=== PATIENT | female | born 1975 | race Hispanic/Latino ===

== ENCOUNTER 2018-04-06 17:59 | Emergency (ER) | payer BC ==
[2018-04-06 19:03] LABS: Absolute Lymphocytes (CBC) 3.3 K/uL (0.7-4.9); Absolute Monocytes 0.5 K/uL (0.1-1.3); Absolute Neutrophil 3.5 K/uL (1.8-8.0); Basophils % 1.2 % (0-1.3); Eosinophils % 1.6 % (0-4.4); Hematocrit 44.8 % (36.0-45.0); Lymphocytes % 44.3 % (15.3-44.8); MCH 29.9 pg (27.0-35.0); MCV 87.2 fL (80-100); MPV 9.5 fL (7.6-11.3); Monocytes % 6.7 % (3.3-12.3); RBC Red Blood Cell Count 5.14 M/uL (3.86-4.86)
[2018-04-06 19:12] LABS: Protime INR 1.07
[2018-04-06 19:23] LABS: Barbiturates NEGATIVE (NEGATIVE); Benzodiazepines POSITIVE (NEGATIVE); Cocaine NEGATIVE (NEGATIVE); METHAMPHETAM NEGATIVE (NEGATIVE); Methadone NEGATIVE (NEGATIVE); Opiates POSITIVE (NEGATIVE); Phencyclidine NEGATIVE (NEGATIVE); THC Cannibis NEGATIVE (NEGATIVE)
[2018-04-06 19:50] LABS: ALT/SGPT 19 U/L (12-78); AST/SGOT 15 U/L (15-37); Albumin 4.1 g/dL (3.4-5.0); Alkaline Phosphatase 82 U/L (45-117); BUN Blood Urea Nitrogen 8 mg/dL (7-18); Bicarbonate 27 mmol/L (21-32); Bilirubin Direct 0.1 mg/dL (0-0.2); Bilirubin Total 0.5 mg/dL (0.2-1.0); Glucose Level 97 mg/dL (74-106); Potassium 3.5 mmol/L (3.5-5.1); Protein, Total 7.9 g/dL (6.4-8.2); Sodium Level 139 mmol/L (136-145)
[2018-04-06 19:53] LABS: Urine Blood NEGATIVE (NEG); Urine Glucose NEGATIVE (NEG); Urine Protein NEGATIVE (NEG); Urine Specific Gravity 1.015 (1.005-1.030)
--- NOTE | 2018-04-06 21:32 | EDPHYS ---
Physician Documentation [facility] Name: Shira Goldsmith Age: 42 yrs Sex: Female : 1975 Arrival Date: 04/06/2018 Time: 18:04 Bed 15 Private MD: Michael Amaral T ED Physician Carlos Boland HPI: 04/06 18:45 This 42 yrs old Female presents to ER via Ambulatory with complaints of cp Suicidal Ideation. 18:45 The patient presents to the emergency department with depression, over a , the cp patient's child, suicide ideation, and the patient has a plan, to cut oneself and bleed, to overdose with medications. Onset: The symptoms/episode began/occurred gradually. Past psychiatric history: Prior diagnosis: no previous psychiatric diagnosis known, Psychiatric medications include: none. Associated signs and symptoms: Pertinent negatives: abdominal pain, chest pain, delusions, hallucinations, homicidal ideation, substance abuse. 18:45 Patient reports worsening depression and increasing thoughts of suicide since cp unexpected of daughter this past January. 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 - Social history:: Smoking status: Patient/guardian denies using tobacco, Patient/guardian denies using alcohol, street drugs. - Ebola Screening: : Patient denies travel to an Ebola-affected area in the 21 days before illness onset. ROS: 18:50 Constitutional: Negative for body aches, chills, fever, poor PO intake. cp 18:50 Eyes: Negative for injury, pain, redness, and discharge. cp 18:50 ENT: Negative for drainage from ear(s), ear pain, sore throat, difficulty swallowing, difficulty handling secretions. 18:50 Cardiovascular: Negative for chest pain, edema, palpitations. 18:50 Respiratory: Negative for cough, shortness of breath, wheezing. 18:50 Abdomen/GI: Negative for abdominal pain, nausea, vomiting, and diarrhea. 18:50 Neuro: Negative for altered mental status, headache, weakness. 18:50 Psych: Positive for depression, suicidal ideation, Negative for auditory hallucinations, visual hallucinations, homicidal ideation, suicide gesture. 18:50 All other systems are negative. Exam: 18:50 Constitutional: The patient appears in no acute distress, alert, awake, non-toxic, well cp developed, well nourished, tearful 18:50 Head/Face: Normocephalic, atraumatic. cp 18:50 Eyes: Periorbital structures: appear normal, Pupils: equal, round, and reactive to light and accomodation, Extraocular movements: intact throughout, Conjunctiva: normal, no exudate, no injection, Lids and lashes: appear normal, bilaterally. 18:50 ENT: External ear(s): are unremarkable, Ear canal(s): are normal, clear, TM's: are normal, no evidence of bulging, no erythema, Nose: is normal, Mouth: is normal, Posterior pharynx: is normal, airway is patent, no erythema, no exudate. 18:50 Neck: ROM/movement: is normal, is supple, without pain, no range of motions limitations, no nuchal rigidity. 18:50 Chest/axilla: Inspection: normal, Palpation: is normal, no crepitus, no tenderness. 18:50 Cardiovascular: Rate: normal, Rhythm: regular. 18:50 Respiratory: the patient does not display signs of respiratory distress, Respirations: normal, no use of accessory muscles, no retractions, no splinting, no tachypnea, labored breathing, is not present, Breath sounds: are clear throughout, no decreased breath sounds, no stridor, no wheezing. 18:50 Abdomen/GI: Exam negative for discomfort, distension, guarding, Inspection: abdomen appears normal. 18:50 Back: pain, is absent, ROM is normal. 18:50 Skin: cellulitis, is not appreciated, no rash present. 18:50 Neuro: Orientation: to person, place \\T\\ time. Mentation: is normal, Cerebellar function: is grossly normal, Motor: moves all fours, strength is normal, Sensation: is normal. 18:50 Psych: Behavior/mood is depressed, Affect is flat, Patient having thoughts of suicide. Plan for suicide is cut self with knife or overdose on pills Delusions/hallucinations are not present. 18:52 ECG was reviewed by the Attending Physician. cp Vital Signs: 18:13 BP 150 / 107; Pulse 89; Resp 18; Temp 98.0; Pulse Ox 97% on R/A; Pain 0/10; aj1 19:11 BP 158 / 109; Pulse 85; Resp 20; Temp 98.3(TE); Pulse Ox 97% on R/A; 1 19:25 Weight 79.47 kg; Height 4 ft. 11 in. (149.86 cm); 1 21:02 BP 117 / 74 LA Sitting; 1 22:03 BP 123 / 75; Pulse 80; Resp 20; Temp 97.8(TE); Pulse Ox 96% on R/A; 1 23:00 BP 124 / 80; Pulse 64; Resp 20; Pulse Ox 97% on R/A; 1 19:25 Body Mass Index 35.39 (79.47 kg, 149.86 cm) [facility] MDM: 18:23 Patient medically screened. 20:23 Data reviewed: vital signs, nurses notes, lab test result(s), EKG. Test interpretation: cp by ED physician or midlevel provider: ECG. 04/06 18:40 Order name: Acetaminophen; Complete Time: 20:19 04/06 18:40 Order name: Basic Metabolic Panel; Complete Time: 20:19 04/06 18:40 Order name: CBC with Diff; Complete Time: 20:19 04/06 20:19 Interpretation: Normal except: RBC 5.14; HGB 15.3. 04/06 18:40 Order name: ETOH Level; Complete Time: 20:19 04/06 18:40 Order name: Hepatic Function; Complete Time: 20:19 04/06 20:19 Interpretation: GLOB 3.8. 04/06 18:40 Order name: PT-INR; Complete Time: 20:19 04/06 18:40 Order name: Ptt, Activated; Complete Time: 20:19 04/06 18:40 Order name: Salicylate; Complete Time: 20:19 04/06 18:40 Order name: Urine Drug Screen; Complete Time: 20:19 04/06 20:20 Interpretation: Normal except: BZO POSITIVE; OPI POSITIVE. 04/06 18:40 Order name: EKG; Complete Time: 18:41 04/06 18:40 Order name: EKG - Nurse/Tech; Complete Time: 18:47 cp 04/06 19:32 Order name: Urine Dipstick--Ancillary (enter results); Complete Time: 20:19 ms 04/06 18:40 Order name: Labs collected and sent; Complete Time: 18:47 cp EC:52 Rate is 69 beats/min. Rhythm is regular. [place] interval is normal. QRS interval is normal. cp QT interval is normal. Interpreted by me. Reviewed by me. Administered Medications: No medications were administered Disposition: 04/07 08:27 Co-signature as Attending Physician, Carlos Boland MD I agree with the assessment and [facility] plan of care. Disposition: 04/06/18 21:32 Transfer ordered to [facility]. Diagnosis is Suicidal ideations. - Reason for transfer: Higher level of care. - Accepting physician is DR Evelin Noland. - Condition is Stable. - Problem is new. - Symptoms have improved. Signatures: Dispatcher [employer] EDGabriella Austin RN RN aj1 Carlos Boland MD MD cha Calhoun, Lisa lc1 Carlos Garcia, FARSHAD PA cp Corrections: (The following items were deleted from the chart) 04/06 18:15 18:13 Home Meds: "something for my stomach issues"; aj1 aj1 04/07 00:06 04/06 21:32 04/06/2018 21:32 Transfer ordered to [facility]. lc1 Diagnosis is Suicidal ideations. Reason for transfer: Higher level of care. Accepting physician is DR Evelin Noland. Condition is Stable. Problem is new. Symptoms have improved. cp
--- NOTE | 2018-04-06 21:32 | ER ---
Nurse's Notes [facility] Name: Shira Goldsmith Age: 42 yrs Sex: Female : 1975 Arrival Date: 04/06/2018 Time: 18:04 Bed 15 Private MD: Michael Amaral T Diagnosis: Suicidal ideations Presentation: 04/06 18:06 Presenting complaint: Patient states: "I've been having thoughts of killing myself. My aj1 daughter February 06 and my emotions have been getting worse and I want to take a knife and cut myself or take a lot of pill and just be with her" Patient states that her plan was to cut her wrists. Patient's sister states that her daughter accidentally shot herself in the head, she's been taking Valium and see a therapist, but things are just getting worse. Transition of care: patient was not received from another setting of care. Onset of symptoms was February 06, 2018. Risk Assessment: Do you want to hurt yourself or someone else? Patient reports desire/thoughts of hurting themselves or someone else. Provider notified. Initial Sepsis Screen: Does the patient meet any 2 criteria? No. Patient's initial sepsis screen is negative. Does the patient have a suspected source of infection? No. Patient's initial sepsis screen is negative. Care prior to arrival: None. 18:06 Method Of Arrival: Ambulatory aj 18:06 Acuity: IMELDA 2 aj1 Triage Assessment: 18:13 General: Appears uncomfortable, Behavior is anxious, crying. Pain: Denies pain. Neuro: aj1 Level of Consciousness is awake, alert, obeys commands. Cardiovascular: Patient's skin is warm and dry. Respiratory: Airway is patent Respiratory effort is even, unlabored, Respiratory pattern is regular, symmetrical. 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 - Social history:: Smoking status: Patient/guardian denies using tobacco, Patient/guardian denies using alcohol, street drugs. - Ebola Screening: : Patient denies travel to an Ebola-affected area in the 21 days before illness onset. Screenin:11 Abuse screen: Denies threats or abuse. Nutritional screening: No deficits noted. lc1 Tuberculosis screening: No symptoms or risk factors identified. Fall Risk None identified. Assessment: 19:13 General: Appears distressed, Behavior is anxious, crying. Pain: Denies pain. Neuro: No lc1 deficits noted. Neuro: No deficits noted. Reports. Cardiovascular: No deficits noted. Respiratory: No deficits noted. GI: No deficits noted. : No deficits noted. EENT: No deficits noted. Derm: No deficits noted. No signs and/or symptoms reported regarding the dermatologic system. Musculoskeletal: No deficits noted. No signs and/or symptoms reported regarding the musculoskeletal system. 19:26 Neuro: Reports she has been thinking of killing herself and has a plan, she states she lc1 has put knives around the house and even has pills that she can take. patient stated "I just want to go to sleep and be with my baby" She reports she had one of the knives in her hand today. her sister called to check on her and started asking questions and realized that she needed help. sister reports patient has been going to counseling and was taking valium but was weaning off of it and just stopped taking it. she took 1/2 a valium today. patient is tearful, crying. reports she has no appetite. states she was about 198 lbs so she has lost 23 lbs over the last 2 months. will continue to monitor. 21:51 Reassessment: No changes from previously documented assessment. Patient and/or family lc1 updated on plan of care and expected duration. Pain level reassessed. Patient states symptoms have not improved. 23:19 Reassessment: No changes from previously documented assessment. Patient and/or family lc1 updated on plan of care and expected duration. Pain level reassessed. Patient states symptoms have not improved. Psych: 20:00 Subjective: Patient's mood is sad, hopeless, Delusions are denied, Hallucinations are lc1 denied Having thoughts of suicide. Plan for suicide is patient has knives around house with plan to cut herself, she also stated that she has pills that she thought of taking. Objective: Patient is Speech is normal, Affect is appropriate. Interventions: Removed personal items and placed in bag. Patient placed in hospital gown. Searched person for dangerous items. Suicide Risk Assessment: Sad Person Scale: Sex of patient: Female: Score 0 points. Age of patient: Score 0 point if patient falls outside of specified age parameters. Depression: Score 1 point if signs of depression are present. Previous Attempt: Score 0 point if patient has not previously attempted suicide. Substance Abuse: Score 0 point if patient does not abuse alcohol or drugs. Rational Thinking: Score 0 point if patient has rational thinking. Social Support: Score 0 if social support is present/available. Organized Plan: Score 1 point if patient had a plan in place. Relationship: Score 0 point if patient has a spouse or domestic partner. Chronic Sickness: Score 0 point if patient does not have a chronic illness, debilitating, or severe disorder. TOTAL POINTS: If total points are 0-2, proposed clinical action is to send home with follow-up. Safety Checks: Personal items have been removed. Door is open. Visitors are present. Pt denies substance abuse. Commitment: Patient will be a voluntary commitment. Vital Signs: 18:13 BP 150 / 107; Pulse 89; Resp 18; Temp 98.0; Pulse Ox 97% on R/A; Pain 0/10; aj1 19:11 BP 158 / 109; Pulse 85; Resp 20; Temp 98.3(TE); Pulse Ox 97% on R/A; lc1 19:25 Weight 79.47 kg; Height 4 ft. 11 in. (149.86 cm); 1 21:02 BP 117 / 74 LA Sitting; lc1 22:03 BP 123 / 75; Pulse 80; Resp 20; Temp 97.8(TE); Pulse Ox 96% on R/A; lc1 23:00 BP 124 / 80; Pulse 64; Resp 20; Pulse Ox 97% on R/A; lc1 19:25 Body Mass Index 35.39 (79.47 kg, 149.86 cm) [facility] ED Course: 18:04 Patient arrived in ED. mr 18:04 Michael Amaral MD is Private Physician. mr 18:11 Triage completed. aj1 18:15 Arm band placed on Patient placed in an exam room. aj1 18:23 [facility] cp 18:23 Carlos Boland MD is Attending Physician. cp 19:00 Safety Checks: Personal items have been removed. The door is open or patient has been lc1 placed in a hallway bed/chair. A family member and/or friend is present and encouraged to stay. Sitter present at this time. 19:11 Chel Casey is Primary Nurse. lc1 19:11 Patient has correct armband on for positive identification. Placed in gown. Bed in low lc1 position. Adult w/ patient. 1:1 in view of nurses station. Patient is placed in psych hold. 19:15 Safety Checks: Personal items have been removed. The door is open or patient has been lc1 placed in a hallway bed/chair. A family member and/or friend is present and encouraged to stay. Sitter present at this time. 19:30 Safety Checks: Personal items have been removed. The door is open or patient has been lc1 placed in a hallway bed/chair. A family member and/or friend is present and encouraged to stay. Sitter present at this time. Other: patient crying. 19:45 Safety Checks: Personal items have been removed. The door is open or patient has been lc1 placed in a hallway bed/chair. A family member and/or friend is present and encouraged to stay. Sitter present at this time. 20:00 Safety Checks: Personal items have been removed. The door is open or patient has been lc1 placed in a hallway bed/chair. A family member and/or friend is present and encouraged to stay. Sitter present at this time. patient crying off and on. 20:15 Safety Checks: Personal items have been removed. The door is open or patient has been lc1 placed in a hallway bed/chair. A family member and/or friend is present and encouraged to stay. Sitter present at this time. 20:30 transfer approval from receiving facility. Safety Checks: Personal items have been lc1 removed. The door is open or patient has been placed in a hallway bed/chair. A family member and/or friend is present and encouraged to stay. Sitter present at this time. 20:45 Appears tearful. Appears upset. Safety Checks: Personal items have been removed. The lc1 door is open or patient has been placed in a hallway bed/chair. A family member and/or friend is present and encouraged to stay. Sitter present at this time. 21:00 Safety Checks: Personal items have been removed. The door is open or patient has been lc1 placed in a hallway bed/chair. A family member and/or friend is present and encouraged to stay. Sitter present at this time. Other: family at bedside, patient tearful. 21:15 Safety Checks: Personal items have been removed. The door is open or patient has been lc1 placed in a hallway bed/chair. A family member and/or friend is present and encouraged to stay. Sitter present at this time. 21:30 transfer. lc1 21:30 Safety Checks: Personal items have been removed. The door is open or patient has been lc1 placed in a hallway bed/chair. A family member and/or friend is present and encouraged to stay. Sitter present at this time. 21:45 Appears tearful. lc1 21:45 transfer. Safety Checks: Personal items have been removed. The door is open or patient lc1 has been placed in a hallway bed/chair. A family member and/or friend is present and encouraged to stay. Sitter present at this time. 21:52 No provider procedures requiring assistance completed. Patient did not have IV access lc1 during this emergency room visit. 22:00 Resting quietly. Appears tearful. Awaiting disposition. Safety Checks: Personal items lc1 have been removed. The door is open or patient has been placed in a hallway bed/chair. A family member and/or friend is present and encouraged to stay. Sitter present at this time. Other: report called to Julia Morales RN at [facility]. 22:15 Appears tearful. transfer. Safety Checks: Personal items have been removed. The door is lc1 open or patient has been placed in a hallway bed/chair. A family member and/or friend is present and encouraged to stay. Sitter present at this time. 22:30 Appears tearful. transfer. Safety Checks: Personal items have been removed. The door is lc1 open or patient has been placed in a hallway bed/chair. A family member and/or friend is present and encouraged to stay. Sitter present at this time. 22:45 Resting quietly. Safety Checks: Personal items have been removed. The door is open or lc1 patient has been placed in a hallway bed/chair. A family member and/or friend is present and encouraged to stay. Sitter present at this time. Other: patient got dressed in her own clothes, Waiting for EMS to transfer to [facility]. 23:00 Resting quietly. Safety Checks: Personal items have been removed. The door is open or lc1 patient has been placed in a hallway bed/chair. A family member and/or friend is present and encouraged to stay. Sitter present at this time. 23:15 Resting quietly. transfer. Safety Checks: Personal items have been removed. The door is lc1 open or patient has been placed in a hallway bed/chair. A family member and/or friend is present and encouraged to stay. Sitter present at this time. 23:19 Patient has correct armband on for positive identification. Bed in low position. Adult lc1 w/ patient. 23:30 Resting quietly. transfer. Safety Checks: Personal items have been removed. The door is lc1 open or patient has been placed in a hallway bed/chair. A family member and/or friend is present and encouraged to stay. Sitter present at this time. Waiting for EMS. 23:45 Resting quietly. Appears tearful. transfer. Safety Checks: Personal items have been lc1 removed. The door is open or patient has been placed in a hallway bed/chair. A family member and/or friend is present and encouraged to stay. Sitter present at this time. [facility] present to transfer patient to [facility], report given patient assisted to EMS stretcher. Administered Medications: No medications were administered Outcome: 21:32 ER care complete, transfer ordered by MD. bustillos 23:45 Transferred by ground EMS to [facility], Transfer form completed. [facility] 23:45 Condition: stable 23:45 Instructed on Transfer 04/07 00:06 Patient [address] the ED[address] [facility] Signatures: Gabriella De Los Santos RN RN aj1 Melinda Ramirez Lisa lc1 Carlos Garcia PA PA cp Corrections: (The following items were deleted from the chart) 04/06 18:15 18:13 Home Meds: "something for my stomach issues"; aj1 aj1 21:51 21:49 Appears tearful. lc1 lc1 21:51 21:[address] [facility] 22:05 19:11 BP 158 / 109; Pulse 85bpm; Resp 20bpm; Temp 98.3F Temporal; lc1 lc1 23:21 22:00 Safety Checks: Personal items have been removed. The door is open or patient has lc1 been placed in a hallway bed/chair. A family member and/or friend is present and encouraged to stay. Sitter present at this time. lc1
[2018-04-07 01:30] VITALS: TEMP 97.8
[2018-04-07 01:31] VITALS: BP 124/80; O2SAT 97
--- NOTE | 2018-04-07 07:34 | EKG ---
Test Date: 2018-04-06 Test Time: 18:45:11 Marketing Forecaster: SACHA MEASUREMENT RESULTS: Intervals: Rate: 69 FL: 138 QRSD: 88 QT: 392 QTc: 420 Surprise: P: 2 FL: 138 QRS: 16 T: 50 INTERPRETIVE STATEMENTS: Normal sinus rhythm Normal ECG No previous ECG available for comparison Electronically Signed On 04-07-18 07:33:38 DIRECTOR SPEECH LANGUAGE by Garrett Zapien
== END 2018-04-07 00:06 | disposition short-term general hospital (02) ==
LOC: ER 17:59
DX: R45.851 Suicidal ideations (principal); F32.9 Major depressive disorder, single episode, unspecified; Z88.3 Allergy status to other anti-infective agents
CPT/HCPCS: 36415; 80048; 80076; 80307; 80320; 80329; 81003; 85025; 85610; 85730; 93005; 99285

== ENCOUNTER 2019-03-28 12:34 | Emergency (ER) | payer BC ==
--- OUTSIDE RECORDS SUMMARY | 2019-03-28 12:36 | XMS REPORT ---
:1975 [facility] Address [address] [place] [address] [address] [place] [address] Care Team Providers Name Role Phone Unavailable Unavailable Unavailable Payers Payer Name Policy Type Policy Number Effective Date Expiration Date Problems This patient has no known problems. Allergies, Adverse Reactions, Alerts This patient has no known allergies or adverse reactions. Medications This patient has no known medications.
--- NOTE | 2019-03-28 13:42 | RAD REPORT ---
EXAM DESCRIPTION: RAD - Chest Pa And Lat (2 Views) - 03/28/2019 1:37 pm CLINICAL HISTORY: COUGH Chest pain. COMPARISON: No comparisons FINDINGS: The lungs are clear. The heart is normal in size. No displaced fractures. IMPRESSION: No acute or concerning finding suspected.
--- NOTE | 2019-03-28 14:29 | ER ---
Nurse's Notes [facility] Name: Shira Goldsmith Age: 43 yrs Sex: Female : 1975 Arrival Date: 03/28/2019 Time: 12:35 Bed 23 Private MD: Diagnosis: Acute upper respiratory infection, unspecified Presentation: 03/28 12:51 Presenting complaint: Patient states: kasey been having cough, headache and congestion mg2 for 2 days. i dont know if i was running a fever because kasey been taking tylenol for my h/a. today has been worse like everytime i breath my right upper chest hurts or tight. Transition of care: patient was not received from another setting of care. Onset of symptoms was March 27, 2019. Risk Assessment: Do you want to hurt yourself or someone else? Patient reports no desire to harm self or others. Initial Sepsis Screen: Does the patient meet any 2 criteria? No. Patient's initial sepsis screen is negative. Does the patient have a suspected source of infection? No. Patient's initial sepsis screen is negative. 12:51 Method Of Arrival: Ambulatory mg2 12:51 Acuity: IMELDA 4 mg2 13:40 Care prior to arrival: None. mg2 SUEDE BRUSHER: 12:53 LMP N/A - Hysterectomy mg2 Historical: - Allergies: 12:56 Vancomycin; mg2 - Home Meds: 12:56 estradiol Oral [Active]; Omeprazole Oral [Active]; mg2 - PMHx: 12:56 Stomach Ulcers; mg2 - PSHx: 12:56 Hysterectomy; mg2 - Immunization history:: Flu vaccine is not up to date. - Social history:: Smoking status: Patient/guardian denies using tobacco, Patient/guardian denies using alcohol, street drugs, IV drugs. - Ebola Screening: : No symptoms or risks identified at this time. Screenin:40 Abuse screen: Denies threats or abuse. Denies injuries from another. Nutritional mg2 screening: No deficits noted. Tuberculosis screening: No symptoms or risk factors identified. Fall Risk None identified. Assessment: 13:38 General: Appears in no apparent distress. comfortable, Behavior is calm, cooperative. mg2 Pain: Complains of pain in chest Pain does not radiate. Pain currently is 6 out of 10 on a pain scale. Quality of pain is described as tight Pain began gradually, 2-3 days ago. Is intermittent, Alleviated by medications. Neuro: Level of Consciousness is awake, alert, obeys commands, Oriented to person, place, time, situation. Neuro: Reports headache. Cardiovascular: Capillary refill < 3 seconds Patient's skin is warm and dry. Respiratory: Reports cough that is productive, pain with cough since 2 days nasal congestion Airway is patent Respiratory effort is even, unlabored, Respiratory pattern is regular, symmetrical, Breath sounds are clear bilaterally. in right upper lobe, left upper lobe, left lower lobe and right lower lobe. GI: No signs and/or symptoms were reported involving the gastrointestinal system. : No signs and/or symptoms were reported regarding the genitourinary system. EENT: Reports nasal congestion. Derm: Skin is intact, is healthy with good turgor, Skin is pink, warm \T\ dry. normal. Musculoskeletal: Circulation, motion, and sensation intact. Capillary refill < 3 seconds. Vital Signs: 12:53 BP 151 / 88; Pulse 96; Resp 18; Temp 99.1(O); Pulse Ox 97% on R/A; Weight 97.52 kg; mg2 Height 4 ft. 11 in. (149.86 cm); 14:41 BP 132 / 78; Pulse 90; Resp 18; Temp 98; Pulse Ox 100% on R/A; mg2 12:53 Body Mass Index 43.42 (97.52 kg, 149.86 cm) mg2 ED Course: 12:35 Patient arrived in ED. as 12:45 Wilfredo Smith RN is Primary Nurse. mg2 12:53 Triage completed. mg2 12:55 Renate Hanson FNP-C is [facility]. kb 12:55 Carlos Boland MD is Attending Physician. kb 12:57 Arm band placed on. mg2 13:30 X-ray completed. Patient tolerated procedure well. Patient moved to radiology via jf wheelchair. Patient moved back from radiology. 13:34 Chest Pa And Lat (2 Views) XRAY In Process Unspecified. EDMS 13:40 Patient has correct armband on for positive identification. Pulse ox on. NIBP on. Door mg2 closed. Warm blanket given. 13:40 No provider procedures requiring assistance completed. Patient did not have IV access mg2 during this emergency room visit. Patient maintains SpO2 saturation greater than 95% on room air. Administered Medications: 14:42 Drug: Tylenol 1000 mg Route: PO; mg2 14:42 Follow up: Response: No adverse reaction; Medication administered at discharge. mg2 Outcome: 14:29 Discharge ordered by MD. perrin 14:42 Discharged to home ambulatory. mg2 14:42 Condition: stable 14:42 Discharge instructions given to patient, Instructed on discharge instructions, follow up and referral plans. Demonstrated understanding of instructions, follow-up care. 14:42 Patient left the ED. mg2 Signatures: Dispatcher [employer] EDRenate Dey, LINK FABRIC MACHINE OPERATOR-C CORY-Viky Cheng Justin jf Gardose, Michele, HARJINDER RN mg2
--- NOTE | 2019-03-28 14:29 | EDPHYS ---
Physician Documentation [facility] Name: Shira Goldsmith Age: 43 yrs Sex: Female : 1975 Arrival Date: 03/28/2019 Time: 12:35 Bed 23 Private MD: ED Physician Carlos Boland OIL CHANGER: 03/28 12:53 LMP N/A - Hysterectomy mg2 Historical: - Allergies: 12:56 Vancomycin; mg2 - Home Meds: 12:56 estradiol Oral [Active]; Omeprazole Oral [Active]; mg2 - PMHx: 12:56 Stomach Ulcers; mg2 - PSHx: 12:56 Hysterectomy; mg2 - Immunization history:: Flu vaccine is not up to date. - Social history:: Smoking status: Patient/guardian denies using tobacco, Patient/guardian denies using alcohol, street drugs, IV drugs. - Ebola Screening: : No symptoms or risks identified at this time. Vital Signs: 12:53 BP 151 / 88; Pulse 96; Resp 18; Temp 99.1(O); Pulse Ox 97% on R/A; Weight 97.52 kg; mg2 Height 4 ft. 11 in. (149.86 cm); 14:41 BP 132 / 78; Pulse 90; Resp 18; Temp 98; Pulse Ox 100% on R/A; mg2 12:53 Body Mass Index 43.42 (97.52 kg, 149.86 cm) mg2 MDM: 12:55 Patient medically screened. kb 14:41 Data reviewed: vital signs, nurses notes. Data interpreted: Pulse oximetry: on room air kb is 97 %. Interpretation: normal. Counseling: I had a detailed discussion with the patient and/or guardian regarding: the historical points, exam findings, and any diagnostic results supporting the discharge/admit diagnosis, lab results, radiology results, the need for outpatient follow up, a family practitioner, to return to the emergency department if symptoms worsen or persist or if there are any questions or concerns that arise at home. 03/28 12:56 Order name: Flu; Complete Time: 13:29 kb 03/28 12:56 Order name: Chest Pa And Lat (2 Views) XRAY; Complete Time: 13:50 kb Administered Medications: 14:42 Drug: Tylenol 1000 mg Route: PO; mg2 14:42 Follow up: Response: No adverse reaction; Medication administered at discharge. mg2 Disposition: 03/28/19 14:29 Discharged to Home. Impression: Acute upper respiratory infection, unspecified. - Condition is Stable. - Discharge Instructions: Upper Respiratory Infection, Adult, [id number], Viral Respiratory Infection, Ozoc-Cm-Anal. - Medication Reconciliation Form, Thank You Letter, Antibiotic Education, Prescription Opioid Use form. - Follow up: Emergency Department; When: As needed; Reason: Worsening of condition. Follow up: Private Physician; When: 2 - 3 days; Reason: Recheck today's complaints, Continuance of care, Re-evaluation by your physician. Addendum: 03/31/2019 07:12 Co-signature as Attending Physician, Carlos Boland MD I agree with the assessment and c valentine plan of care. 04/08/2019 10:44 Addendum: This 43 year old female presents to the ED via ambulatory with complaints of k b chest pain and cough. . 10:48 Addendum: Pt reports cough, congestion, headache and possible fever for 2 days. Cough k b is intermittent, mild with no sputum. Today started having right upper chest pain with cough. Severity of symptoms: At their worse the symptoms were mild, in the ED the symptoms are unchanged. Modifying factors: Alleviated by nothing, aggravated by cough. Associated signs and symptoms: Pertinent positives: cough, congestion, rhinorrhea, fever, chest pain, headache. Pertinent negatives: sore throat, abd pain, n/v/d.The patient has not experienced similar symptoms in the past. The patient has not recently seen a physician. . 10:55 Addendum: ROS: Constitutional: fever, malaise; ENT: positive for sinus congestion, k b rhinorrhea; respiratory: positive for cough; cardiovascular: positive for chest pain with cough to right upper chest; Neuro: positive for headache; neck: negative for injury, pain or swelling; abd/GI: negative for abd pain, n/v/d; back: negative for injury or pain; MS/Ext: negative for injury or deformity: Skin: negative for rash, injury and discoloration. Addendum: Exam: This is a well developed, well nourished patient who is awake, alert and in no acute distress. Normocephalic, atraumatic head/face. ENT: Nares patent. No discharge, septal abnormalities noted. TM are normal and external auditory canals are clear. Oropharynx with no redness, swelling or masses, exudates or evidence of obstructions, uvula midline. Mucous membranes moist. Neck: Trachea midline, no cervical lymphadenopathy. Supple, full ROM without nuchal rigidity or vertebral point tenderness. No meningismus. Chest/axilla: normal chest wall appearance and motion. Nontender with no deformity. No lesions are appreciated. CV: Regular rate and rhythm with a normal S1 and S2. No gallops, murmurs, or rubs. Normal PMI, no JVD, No pulse deficits. Resp: Lungs have equal breath sounds bilaterally, clear to auscultation. No rales, rhonchi or wheezes noted. No increased work of breathing, no retractions or nasal flaring. Abd/GI: Soft, non-tender, with normal bowel sounds. No distention or tympany. No guarding or rebound. No evidence of tenderness throughout. Skin: warm, dry with normal turgor. Normal color with no rashes, lesions or evidence of cellulitis. MS/Ext: Pulses equal, no cyanosis. Neurovascular intact. Full, normal ROM. Neuro: Awake and alert. GCS 15, Oriented to person, place, time and situation. Cranial nerves II-XII grossly intact. Motor strength 5/5 in all extremities. Sensory grossly intact. Cerebellar exam normal. Normal gait. Signatures: Dispatcher [employer] EDMS Renate Hanson, FACILITY SUPERVISOR-C FACILITY SUPERVISOR-Ckb Carlos Boland MD MD cha Gardose, Michele, RN RN mg2 Corrections: (The following items were deleted from the chart) 03/28 14:42 14:29 03/28/2019 14:29 Discharged to Home. Impression: Acute upper respiratory mg2 infection, unspecified. Condition is Stable. Forms are Medication Reconciliation Form, Thank You Letter, Antibiotic Education, Prescription Opioid Use. Follow up: Emergency Department; When: As needed; Reason: Worsening of condition. Follow up: Private Physician; When: 2 - 3 days; Reason: Recheck today's complaints, Continuance of care, Re-evaluation by your physician. kb
[2019-03-28] MEDS ORDERED: ACETAMINOPHEN 500 MG TAB ONE (14:30)
[2019-03-28 16:20] VITALS: BP 132/78; TEMP 98; O2SAT 100
== END 2019-03-28 14:42 | disposition home or self-care (01) ==
LOC: ER 12:34
DX: J06.9 Acute upper respiratory infection, unspecified (principal); Z88.3 Allergy status to other anti-infective agents
CPT/HCPCS: 71046; 87804; 99284

== ENCOUNTER 2020-01-15 06:08 | Day surgery (SDC) | payer BC ==
--- OUTSIDE RECORDS SUMMARY | 2020-01-15 06:16 | XMS REPORT | Clinical Summary ---
:1975 Author Organization [facility] Address [address] [place] [address] Care Team Providers Name Role Phone Asked, No Pcp Primary Care Provider Unavailable Allergies Active Allergy Reactions Severity Noted Date Comments Vancomycin Rash High 04/07/2018 Medications Medication Sig Dispensed Refills Start Date End Date Status ESTRADIOL daily. 0 Active VAGLIndications: vasomotor symptoms omeprazole (PriLOSEC) 40 Take 40 mg by 0 Active MG capsuleIndications: mouth daily. gastroesophageal reflux disease mirtazapine (REMERON) 15 Take 1 tablet 30 tablet 0 04/11/2018 Active MG tabletIndications: (15 mg total) major depressive disorder by mouth nightly. hydrOXYzine (ATARAX) 25 Take 1 tablet 20 tablet 0 04/11/2018 Active MG tabletIndications: (25 mg total) anxiety by mouth 2 (two) times a day as needed for anxiety. Active Problems Problem Noted Date Major depressive disorder, single episode, severe with out psychotic 04/07/2018 features Immunizations Name Administration Dates Next Due FLUCELVAX QUAD PF 04/07/2018 (Deferred: Other - DUPLICATE USED OVERRIDE TO GAIN ACCESS TO VAC), 04/07/2018 Family History Medical History Relation Name Comments Bipolar disorder Mother Suicide Attempts Other daughter Suicide Attempts Sister Relation Name Status Comments Mother Other daughter 02/06/2018 Sister Social History Tobacco Use Types Packs/Day Years Used Date Never Assessed Alcohol Use Drinks/Week oz/Week Comments No Alcohol Habits Answer Date Recorded How often do you have a drink containing alcohol? Never 04/15/2018 How many drinks containing alcohol do you have on a typical Not asked day when you are drinking? How often do you have six or more drinks on one occasion? No t asked Sex Assigned at Date Recorded Not on file Job Start Date Occupation Industry Not on file Not on file Not on file Travel History Travel Start Travel End No recent travel history available. 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
--- OUTSIDE RECORDS SUMMARY | 2020-01-15 06:17 | XMS REPORT | Continuity of Care Document ---
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-07 Me thodi disorder, disorder, 00:00: st single single 00 episode, episode, severe severe without without psychotic psychotic features features Allergies, Adverse Reactions, Alerts Allergy Allergy Status Severity Reaction(s) Onset Inactive Treating Comm ents Source Name Type Date Date Clinician vancomyc DA Active SV 2018-05 [facility] in 16 Clear 00:00: [place] 00 [facility] Vancomyc Propensi Active Rash 2017-05 [place] in ty to 06-07 Methodi adverse 00:00: st reaction 00 s to drug Family History Family Member Diagnosis Comments Start Date Stop Date Source Natural mother Bipolar disorder [place] Other Suicide Attempts [place] Pent[place] Natural sister Suicide Attempts [place] Social History Social Habit Start Date Stop Date Quantity Comments [facility] Std Dr[facility] History [facility] Meth odist Alcohol Binge Sex Assigned At [facility] M ethodist Alcohol intake 2018-04-15 2018-04-15 Current [facility] thodist 00:00:00 00:00:00 non-drinker of alcohol (finding) History SDOH 2018-04-15 2018-04-15 1 Marek Kothari odist Alcohol Frequency 00:00:00 00:00:00 Medications Ordered Filled Start Stop Current Ordering Indication Dosage Frequency Signature Comments Components Source Medication Medication Date Date Medication? Clinician (SIG) Name Name ESTRADIOL 2017-05 Yes QD daily. Ramu noe VAGL 04 Methodi 15:38: st 23 omeprazole 2017-05 Yes gastroesoph 40mg QD Take 40 mg Jara (PriLOSEC) 04 ageal by mouth Meth yasmany 40 MG 15:38: reflux daily. st capsule 23 disease mirtazapine 2017-05 Yes major 15mg QD Take 1 Marta ston (REMERON) 1-30 depressive tablet (15 Methodi 15 MG 00:00: disorder mg total) st tablet 00 by mouth nightly. hydrOXYzine 2017-05 Yes anxiety 25mg Q.5D Take 1 [place] (ATARAX) 25 1-30 tablet (25 Me thodi MG tablet 00:00: mg total) st 00 by mouth 2 (two) times a day as needed for anxiety. Immunizations Ordered Immunization Filled Immunization Date Status Commen ts Source Name Name RAN LIM PF 2018-04-07 [facility] 00:00:00 Pentecostal Procedures This patient has no known procedures. Plan of Care Planned Activity Planned Date Details Comments Source Future Scheduled 2020-02-11 INFLUENZA VACCINE Ramu Garibay Test 00:00:00 [code = INFLUENZA VACCINE] Future Scheduled 1994 Screening for [facility] thodist Test 00:00:00 malignant neoplasm of cervix (procedure) [code = 463305360] Results Test Description Test Time Test Comments Results Result Comments Source SURGICAL SPECIMENS 2019-05-05 07:51:00 RUN DATE: 05/05/19 [place] *LIVE* PAGE 1 RUN TIME: 750 Specimen Inquiry RUN USER: INTERFACE PATIENT: JACKLYN COLEMAN [place] [facility] [place] [id number] AGE/SX: 43/F [place]OM[place] [facility] [place]04[place]28[place]19REG DR: Julian Dasilva MD : 71 BED: 1 DIS: 04/29/19 STATUS: DIS IN TLOC: SPEC #: [id number] RECD: 04/29/19 STATUS: SOUWan REQ #: [id number] SELMA: 04/29/[address] [facility] [address]: Julian Dasilva MD ENTERED: 05/02/19 SP TYPE: SURG SPEC OTHR DR: Michael Amaral MD ORDERED: GM LEVEL 4 CODES: [id number] - STOMACH, NOS COPIES TO: Michael Amaral MD [address] [place] [address] Julian Dasilva MD [address] [place] [address] [address] [place] [address] PROCEDURES: GM LEVEL 4 (Incomplete) TISSUES: 1. STOMACH, NOS - Stomach, excision FINAL DIAGNOSIS Stomach, partial, excision: Mild chronic inflammation, resection margin appears viable; no Helicobacter pylori organisms identified. GROSS AND MICROSCOPIC GROSS EXAMINATION: Received the specimen as designated above and it consists of one segment of tubular structure tissue measuring 23 x 4.7 x 4 cm with a stapled line on one side. The specimen shows one opening. Opening of the specimen reveals no mass lesions. Sections are submitted as (A)-resection margins; (B)-(D) section-representati ve sections. MICROSCOPIC EXAMINATION: Sections reveal mild chronic inflammation, including small lymphoid aggregates. The resection margin appears viable and without significant inflammation. No Helicobacter pylori organisms are identified with immunostain. (When special stains have been reviewed, the appropriate positive/negative controls have been reviewed and are appropriately positive/negative). CONTINUED ON NEXT PAGE RUN DATE: 05/05/19 [facility] *LIVE* PAGE 2 RUN TIME: 750 Specimen Inquiry RUN USER: INTERFACE SPEC #: [id number] PATIENT: JACKLYN COLEMAN POLLY #[id number] (Continued)--------- --- POST-OP DIAGNOSIS Hypertension, obesity PRE-OP DIAGNOSIS Hypertension, obesity Signed SIGNATURE ON FILE Kailash Huang MD 05/05/19 0751 END OF REPORT COMPREHENSIVE METABOLIC PANEL 2019-05-04 04:06:00 Test Item Value Reference Range Interpretation Comme nts SODIUM (test code = NA) 138 mEq/L 134-147 N POTASSIUM (test code = K) 3.6 mEq/L 3.4-5.0 N CHLORIDE (test code = CL) 105 mEq/L 100-108 N CARBON DIOXIDE (test code = CO2) 27 mEq/L 21-33 N ANION GAP (test code = GAP) 10 0-20 N GLUCOSE (test code = GLU) 75 mg/dL 70-110 N BLOOD UREA NITROGEN (test code = 18 mg/dL 7-18 N BUN) GLOMERULAR FILTRATION RATE (test 108.1 95-105 H Units of measure = code = GFR) ml/min/1.73 m2 CREATININE (test code = CREAT) 0.6 mg/dL 0.6-1.3 N TOTAL PROTEIN (test code = PROT) 7.9 g/dL 6.4-8.2 N ALBUMIN (test code = ALB) 4.20 g/dL 3.4-5.0 N CALCIUM (test code = CA) 9.2 mg/dL 8.0-10.5 N BILIRUBIN TOTAL (test code = BILT) 0.3 MG/DL <1.5 N SGOT/AST (test code = AST) 13 IUnit/L 15-37 L SGPT/ALT (test code = ALT) 20 IUnit/L 15-65 N ALKALINE PHOSPHATASE TOTAL (test 76 IUnit/L 20-125 N code = ALKP) SERUM [id number] 04:06:00 Test Item Value Reference Range Interpretation Comments SERUM IRON (test code = IRON) 51 mcg/dL 35-150 N VITAMIN [id number] 04:06:00 Test Item Value Reference Range Interpretation Comments VITAMIN B12 (test code = VITB12) 349 pg/mL 193-986 N VIT B1 WHOLE [id number] 04:06:00 Test Item Value Reference Range Interpretation Comments VIT B1 WHOLE BLOOD 96.1 nmol/L 66.5-200.0 Performed At: (test code = [facility] [id number]) [facility] [place] [id number] catarina Wren MD Ph:[phone] VITAMIN D [id number] 04:06:00 Test Item Value Reference Range Interpretation Comments VITAMIN D 25-HYDROXY (test code = 12.5 ng/mL 30-100 L VITD25) BASIC METABOLIC [id number] 08:18:00 Test Item Value Reference Range Interpretation Comments SODIUM (test code = NA) 137 mEq/L 134-147 N POTASSIUM (test code = 4.4 mEq/L 3.4-5.0 K) CHLORIDE (test code = 106 mEq/L 100-108 N CL) CARBON DIOXIDE (test 23 mEq/L 21-33 N code = CO2) ANION GAP (test code = 12 0-20 N GAP) GLUCOSE (test code = 88 mg/dL 70-110 N GLU) BLOOD UREA NITROGEN 13 mg/dL 7-18 (test code = BUN) GLOMERULAR FILTRATION 108.1 95-105 H Units of measure = RATE (test code = GFR) ml/mi n/1.73 m2 CREATININE (test code = 0.6 mg/dL 0.6-1.3 N CREAT) CALCIUM (test code = 8.7 mg/dL 8.0-10.5 N CA) UR NICOTINE [id number] 08:10:00 Test Item Value Reference Range Interpretation Comments UR NICOTINE QUAL (test code = Negative ng/mL Zzpxqt=153 NICU) CBC W/AUTO [id number] 07:26:00 Test Item Value Reference Range Interpretation Comments WHITE BLOOD CELL (test code = 9.38 x10 3/uL 4.5-11.0 N WBC) RED BLOOD CELL (test code = 4.50 x10 6/uL 3.54-5.02 N RBC) HEMOGLOBIN (test code = HGB) 12.9 g/dL 11.0-15.0 N HEMATOCRIT (test code = HCT) 40.2 % 33.0-45.0 N MEAN CELL VOLUME (test code = 89.3 fL 81.0-99.0 N MCV) MEAN CELL HGB (test code = MCH) 28.7 pg 27.0-33.0 N MEAN CELL HGB CONCETRATION 32.1 g/dL 33.0-37.0 L (test code = MCHC) RED CELL DISTRIBUTION WIDTH CV 12.3 % 11.5-14.5 N (test code = RDW) RED CELL DISTRIBUTION WIDTH SD 40.4 fL 37.0-54.0 N (test code = RDW-SD) PLATELET COUNT (test code = 270 x10 3/uL 150-400 N PLT) MEAN PLATELET VOLUME (test code 10.9 fL 7.0-9.0 H = MPV) NEUTROPHIL % (test code = NT%) 81.6 % 56.0-77.0 H IMMATURE GRANULOCYTE % (test 0.5 % 0.0-2.0 N code = IG%) LYMPHOCYTE % (test code = LY%) 13.4 % 14.0-32.0 L MONOCYTE % (test code = MO%) 4.4 % 4.8-9.0 L EOSINOPHIL % (test code = EO%) 0.0 % 0.3-3.7 L BASOPHIL % (test code = BA%) 0.1 % 0.0-2.0 N NUCLEATED RBC % (test code = 0.0 % 0-0 N NRBC%) NEUTROPHIL # (test code = NT#) 7.65 x10 3/uL 2.0-7.6 H IMMATURE GRANULOCYTE # (test 0.05 x10 3/uL 0.00-0.03 H code = IG#) LYMPHOCYTE # (test code = LY#) 1.26 x10 3/uL 1.0-3.8 N MONOCYTE # (test code = MO#) 0.41 x10 3/uL 0.1-0.8 N EOSINOPHIL # (test code = EO#) 0.00 x10 3/uL 0.0-0.2 N BASOPHIL # (test code = BA#) 0.01 x10 3/uL 0.0-0.2 N NUCLEATED RBC # (test code = 0.00 x10 3/uL 0.0-0.1 N NRBC#) MANUAL DIFF REQUIRED (test code NO = MDIFF) COMPREHENSIVE METABOLIC [id number] 21:52:00 Test Item Value Reference Range Interpretation Comments SODIUM (test code = NA) 138 mEq/L 134-147 N POTASSIUM (test code = 3.6 mEq/L 3.4-5.0 N K) CHLORIDE (test code = 105 mEq/L 100-108 N CL) CARBON DIOXIDE (test 27 mEq/L 21-33 N code = CO2) ANION GAP (test code = 10 0-20 N GAP) GLUCOSE (test code = 75 mg/dL 70-110 N GLU) BLOOD UREA NITROGEN 18 mg/dL 7-18 N (test code = BUN) GLOMERULAR FILTRATION 108.1 95-105 H Units of measure = RATE (test code = GFR) ml/mi n/1.73 m2 CREATININE (test code = 0.6 mg/dL 0.6-1.3 N CREAT) TOTAL PROTEIN (test 7.9 g/dL 6.4-8.2 N code = PROT) ALBUMIN (test code = 4.20 g/dL 3.4-5.0 N ALB) CALCIUM (test code = 9.2 mg/dL 8.0-10.5 N CA) BILIRUBIN TOTAL (test 0.3 MG/DL <1.5 N code = BILT) SGOT/AST (test code = 13 IUnit/L 15-37 L AST) SGPT/ALT (test code = 20 IUnit/L 15-65 N ALT) ALKALINE PHOSPHATASE 76 IUnit/L 20-125 N TOTAL (test code = ALKP) SERUM [id number] 21:52:00 Test Item Value Reference Range Interpretation Comments SERUM IRON (test code = IRON) 51 mcg/dL 35-150 N VITAMIN [id number] 21:52:00 Test Item Value Reference Range Interpretation Comments VITAMIN B12 (test code = VITB12) 349 pg/mL 193-986 N VIT B1 WHOLE [id number] 21:52:00 Test Item Value Reference Range Interpretation Comments VIT B1 WHOLE BLOOD (test code = [id number]) VITAMIN D [id number] 21:52:00 Test Item Value Reference Range Interpretation Comments VITAMIN D 25-HYDROXY (test code = 12.5 ng/mL 30-100 L VITD25) COMPREHENSIVE METABOLIC [id number] 18:24:00 Test Item Value Reference Range Interpretation Comments SODIUM (test code = NA) 138 mEq/L 134-147 N POTASSIUM (test code = 3.6 mEq/L 3.4-5.0 N K) CHLORIDE (test code = 105 mEq/L 100-108 N CL) CARBON DIOXIDE (test 27 mEq/L 21-33 N code = CO2) ANION GAP (test code = 10 0-20 N GAP) GLUCOSE (test code = 75 mg/dL 70-110 N GLU) BLOOD UREA NITROGEN 18 mg/dL 7-18 N (test code = BUN) GLOMERULAR FILTRATION 108.1 95-105 H Units of measure = RATE (test code = GFR) ml/mi n/1.73 m2 CREATININE (test code = 0.6 mg/dL 0.6-1.3 N CREAT) TOTAL PROTEIN (test 7.9 g/dL 6.4-8.2 N code = PROT) ALBUMIN (test code = 4.20 g/dL 3.4-5.0 N ALB) CALCIUM (test code = 9.2 mg/dL 8.0-10.5 N CA) BILIRUBIN TOTAL (test 0.3 MG/DL <1.5 N code = BILT) SGOT/AST (test code = 13 IUnit/L 15-37 L AST) SGPT/ALT (test code = 20 IUnit/L 15-65 N ALT) ALKALINE PHOSPHATASE 76 IUnit/L 20-125 N TOTAL (test code = ALKP) SERUM [id number] 18:24:00 Test Item Value Reference Range Interpretation Comments SERUM IRON (test code = IRON) 51 mcg/dL 35-150 N VITAMIN [id number] 18:24:00 Test Item Value Reference Range Interpretation Comments VITAMIN B12 (test code = VITB12) 349 pg/mL 193-986 N VIT B1 WHOLE [id number] 18:24:00 Test Item Value Reference Range Interpretation Comments VIT B1 WHOLE BLOOD (test code = [id number]) VITAMIN D [id number] 18:24:00 Test Item Value Reference Range Interpretation Comments VITAMIN D 25-HYDROXY (test code = ng/mL 30-100 VITD25) COMPREHENSIVE METABOLIC [id number] 17:58:00 Test Item Value Reference Range Interpretation Comments SODIUM (test code = NA) 138 mEq/L 134-147 N POTASSIUM (test code = K) 3.6 mEq/L 3.4-5.0 N CHLORIDE (test code = CL) 105 mEq/L 100-108 N CARBON DIOXIDE (test code = CO2) 27 mEq/L 21-33 N ANION GAP (test code = GAP) 10 0-20 N GLUCOSE (test code = GLU) 75 mg/dL 70-110 N BLOOD UREA NITROGEN (test code = 18 mg/dL 7-18 N BUN) GLOMERULAR FILTRATION RATE (test 95-105 code = GFR) CREATININE (test code = CREAT) mg/dL 0.6-1.3 TOTAL PROTEIN (test code = PROT) g/dL 6.4-8.2 ALBUMIN (test code = ALB) g/dL 3.4-5.0 CALCIUM (test code = CA) 9.2 mg/dL 8.0-10.5 N BILIRUBIN TOTAL (test code = BILT) MG/DL <1.5 SGOT/AST (test code = AST) IUnit/L 15-37 SGPT/ALT (test code = ALT) IUnit/L 15-65 ALKALINE PHOSPHATASE TOTAL (test IUnit/L 20-125 code = ALKP) SERUM [id number] 17:58:00 Test Item Value Reference Range Interpretation Comments SERUM IRON (test code = IRON) mcg/dL 35-150 VITAMIN [id number] 17:58:00 Test Item Value Reference Range Interpretation Comments VITAMIN B12 (test code = VITB12) pg/mL 193-986 VIT B1 WHOLE [id number] 17:58:00 Test Item Value Reference Range Interpretation Comments VIT B1 WHOLE BLOOD (test code = [id number]) VITAMIN D [id number] 17:58:00 Test Item Value Reference Range Interpretation Comments VITAMIN D 25-HYDROXY (test code = ng/mL 30-100 VITD25) PROTHROMBIN [id number] 17:45:00 Test Item Value Reference Range Interpretation Comments PROTHROMBIN TIME 11.6 SECONDS 9.3-12.9 N PATIENT (test code = PTP) INTERNATIONAL NORMAL 1.1 0.8-1.2 N TARGET RATIO (test code = INR BY IN DICATION INR) Indication INR1. Prophyl axis of venous thrombos is 2.0 - 3. 0 (orthopedic anneliese juan), Prophylaxis of venous thrombos is (other than hig h-risk surgery), Yasmine tment of Deep Vein Thrombosis/Pulm onary Embolism, Preve ntion of systemic emb olism - Tissue heart va lves, Acute Myocardia l Infarction (to prevent systemic embo lism), Valvular heart disease, Atri al Fibrillation, Bileaflet mecha nical valve in aortic position.2. Mec hanical prosthetic valv es (high risk), 2.5 - 3.5 Presence of Lupus Anticoagu lant or Antiphospholi pid Antibodies, Pre vention of systemic e mbolism - Acute Myocard ial Infarction (t o prevent recurre nt infarct). THROMBOPLASTIN TIME [id number] 17:45:00 Test Item Value Reference Range Interpretation Comments THROMBOPLASTIN TIME 38.5 Seconds 25.0-39.5 N Ther apeutic PARTIAL (test code = Range: 50.4 - 88.3 PTT) Seconds Effective 08/26/2018 CBC W/AUTO [id number] 17:36:00 Test Item Value Reference Range Interpretation Comments WHITE BLOOD CELL (test code = 7.65 x10 3/uL 4.5-11.0 N WBC) RED BLOOD CELL (test code = 4.76 x10 6/uL 3.54-5.02 N RBC) HEMOGLOBIN (test code = HGB) 13.8 g/dL 11.0-15.0 N HEMATOCRIT (test code = HCT) 42.9 % 33.0-45.0 N MEAN CELL VOLUME (test code = 90.1 fL 81.0-99.0 N MCV) MEAN CELL HGB (test code = MCH) 29.0 pg 27.0-33.0 N MEAN CELL HGB CONCETRATION 32.2 g/dL 33.0-37.0 L (test code = MCHC) RED CELL DISTRIBUTION WIDTH CV 12.2 % 11.5-14.5 N (test code = RDW) RED CELL DISTRIBUTION WIDTH SD 40.3 fL 37.0-54.0 N (test code = RDW-SD) PLATELET COUNT (test code = 277 x10 3/uL 150-400 N PLT) MEAN PLATELET VOLUME (test code 10.2 fL 7.0-9.0 H = MPV) NEUTROPHIL % (test code = NT%) 54.7 % 56.0-77.0 L IMMATURE GRANULOCYTE % (test 0.4 % 0.0-2.0 N code = IG%) LYMPHOCYTE % (test code = LY%) 38.0 % 14.0-32.0 H MONOCYTE % (test code = MO%) 5.1 % 4.8-9.0 N EOSINOPHIL % (test code = EO%) 1.0 % 0.3-3.7 N BASOPHIL % (test code = BA%) 0.8 % 0.0-2.0 N NUCLEATED RBC % (test code = 0.0 % 0-0 N NRBC%) NEUTROPHIL # (test code = NT#) 4.18 x10 3/uL 2.0-7.6 N IMMATURE GRANULOCYTE # (test 0.03 x10 3/uL 0.00-0.03 N code = IG#) LYMPHOCYTE # (test code = LY#) 2.91 x10 3/uL 1.0-3.8 N MONOCYTE # (test code = MO#) 0.39 x10 3/uL 0.1-0.8 N EOSINOPHIL # (test code = EO#) 0.08 x10 3/uL 0.0-0.2 N BASOPHIL # (test code = BA#) 0.06 x10 3/uL 0.0-0.2 N NUCLEATED RBC # (test code = 0.00 x10 3/uL 0.0-0.1 N NRBC#) MANUAL DIFF REQUIRED (test code NO = MDIFF) - XR CHEST 2 [id number] 17:19:00 FAX: Michael Mojica MD [phone] [place]: St: PRE FAX: Julian Dasilva MD [phone] Name: [facility] 1975 Age/S: 43/F [address] [place] [address] Unit #: [id number] Loc: [place] [address] Phys: Julian Dasilva MD Acct: G [id number] Dis Date: Status: PRE IN PHONE #: [phone] Exam Date: 04/27/20191717 FAX #: [phone] Reason: PRE-OP SLEEVE GASTRECTOMY EXAMS: CPT CODE: [id number] XR CHEST 2 V 25843 2 VIEW CXR HISTORY: Preop chest x-ray prior to sleeve gastrectomy. COMPARISON: No relevant priors available. The lungs are clear. Pulmonary vascularity normal. The pleura, cardiomediastinal silhouette and bony thorax are normal. IMPRESSION: Normal exam. END [id number] at 1566 Reported and signed by: Delgado Montoya M.D. CC: Michael Amaral MD; Julian Dasilva MD Technologist: RT Kirstie(Cody) Trnscrd Jordan e/Time/By: 04/27/2019 (6068) : By: Micaela Orig Print D/T: S: 04/27/2019 (2629) PAGE 1 Signed Report
[2020-01-15] MEDS ORDERED: Ringers Lactate 1,000 ML IV ONE (06:52)
[2020-01-15] MEDS ORDERED: BUPIVACA 0.5%/EPI 0.0005%/PF 30 ML VIAL ONE (07:09)
[2020-01-15] MEDS ORDERED: FENTANYL CITR 100 MCG/2 ML ONE (07:13)
[2020-01-15] MEDS ORDERED: MIDAZOLAM HCL 2 MG/2 ML INJ ONE (07:13)
[2020-01-15] MEDS ORDERED: dexAMETHasone 10 MG/ML VIAL ONE (07:13)
[2020-01-15] MEDS ORDERED: propofoL 200 MG/20 ML VIAL IV ONE (07:13)
[2020-01-15] MEDS ORDERED: LIDOCAINE 2% MPF 5 ML VIAL ONE (07:14)
[2020-01-15] MEDS ORDERED: ONDANSETRON 4 MG/2 ML VIAL ONE ×2 (07:14→08:42)
[2020-01-15] MEDS ORDERED: ROCURONIUM 50 MG/5 ML VIAL IV ONE (07:14)
[2020-01-15] MEDS: MEPERIDINE HCL 25 MG/ML SYR ONE ×2 (08:12→08:28)
[2020-01-15] MEDS: HYDROMORPHONE HCL 1 MG/ML INJ ONE ×3 (08:31→08:45)
[2020-01-15] MEDS ORDERED: HYDROMORPHONE HCL 1 MG/ML INJ ONE (08:42)
[2020-01-15 09:12] VITALS: BP 142/76; TEMP 96.5; O2SAT 97
--- NOTE | 2020-01-15 09:35 | P.OP ---
Pre-Op Diagnosis: Chronic tonsillitis Post-Op Diagnosis: Chronic tonsillitis, Tonsillolith Procedure: Tonsillectomy Anesthesia: Other (general via ETT) Estimated blood loss: Other (<5ml) Specimen: Other (right and left tonsil) Complications: None Implants: None Indication: Patient persistent issues in spite of good medical management. Details of Operation: The patient was brought to the operating room and placed under general anesthesia via endotracheal tube. The head of bed was turned 90 degrees. A Shoulder roll was placed and the neck extended. A head drape was applied. The McIvor mouth gag was placed and suspended from the Jang stand. The oxygen concentrate was confirmed with the packaging materials inspector and was less than forty percent. Weight-based dexamethasone was administered by the packaging materials inspector. The soft palate was palpated and there was no submucous cleft. A red rubber catheter was placed in the nose and secured to retract the soft palate. The tonsils were noted to be scarred and cryptic and chronically inflammed. The left tonsil was grasped with a straight Allis clamp. The bovie electocautery was used to incision the mucosa over the anterior pillar and identify the tonsillar capsule. The tonsil was dissected using cautery and blunt dissection until free from soft tissue attachments. A tonsil ball was placed to aid hemostasis. The right tonsil was removed in a similar manner. There was a small rest of tonsillar appearing tissue on the inferior anterior pillar, about 2 mm diameter was was removed separately. There was a 3-4 mm lymphoid appearing tissue on the posterior pillar that was likewise removed with bovie and sent with the right tonsil specimen. The laryngeal mirror was used to visualize the nasopharynx. The adenoid size was minimal. The adenoids were not removed. Hemostasis was achieved using packing and cautery as needed. Blood loss was minimal. All packing was removed. The tonsillar fossae were injected with 0.25% Marcaine with epinephrine. A total of 2 mL was used. A Salum sump orogastric tube was used to decompress the stomach. The red rubber catheter was removed and used to suction the nasopharynx and nasal cavity. The mouth gag was removed; there was no evidence of injury to the lips, teeth or tongue. The mandible was mobile. Disposition: The patient was then awakened from anesthesia and taken to the recovery room in stable condition.
[2020-01-15] MEDS ORDERED: HYDROCOD 2.5mg-ACETAMIN 108mg/5mL Soln ONE (09:40)
--- NOTE | 2020-01-19 20:06 | EKG ---
Test Date: 2020-01-15 Test Time: 06:20:33 Fire Ranger: TG MEASUREMENT RESULTS: Intervals: Rate: 83 VA: 148 QRSD: 84 QT: 382 QTc: 448 [place]: P: 45 VA: 148 QRS: 16 T: 63 INTERPRETIVE STATEMENTS: Normal sinus rhythm Possible Left atrial enlargement Cannot rule out Anterior infarct, age undetermined Abnormal ECG Compared to ECG 04/06/2018 18:45:11 Myocardial infarct finding now present Electronically Signed On 01-19-20 19:59:58 CDT by Lang Lopez
== END 2020-01-15 10:20 | disposition home or self-care (01) ==
LOC: OR 06:08
PROVIDERS: ATTEND Otolaryngology
PROC: 0CBPXZZ Excision of Tonsils, External Approach (ICD-10-PCS; principal; 2020-01-15 07:30)
DX: J35.01 Chronic tonsillitis (principal); J35.8 Other chronic diseases of tonsils and adenoids; Z01.810 Encounter for preprocedural cardiovascular examination; R94.31 Abnormal electrocardiogram [ECG] [EKG]
CPT/HCPCS: 93005; 88304; 42826; J2704; J2250; J3010; J1100; J2175; J1170 ×2; J7120; J2405 ×2

== ENCOUNTER 2020-06-17 18:45 | Observation (INO) | payer BC ==
--- OUTSIDE RECORDS SUMMARY | 2020-06-17 18:51 | XMS REPORT | Clinical Summary ---
:1975 Author Organization [facility] Address [address] [place] [id number] Care Team Providers Name Role Phone Asked, [...] OVERRIDE TO GAIN ACCESS TO VAC), 04/07/2018 Surgical History Surgery Date Site/Laterality Comments TOTAL ABDOMINAL HYSTERECTOMY Medical History Medical History Date Comments Depression Family History Medical History Relation Name Comments [...] Assigned at Date Recorded Not on file Last Filed Vital Signs Not on file Plan of Treatment Health Maintenance Due Date Last Done Comments COVID-19 VACCINE (1 of 2) 1989 HEPATITIS C SCREENING 11/26/1991 CERVICAL CANCER SCREENING 1994 INFLUENZA VACCINE 12/12/2019 04/07/2018 Results Not on fileafter 06/17/2019 Advance Directives For more information, please contact: [phone] Type Date Recorded Patient Watch Electrician Explanati on Advance Directives, Living Will and Medical Power of Fuel Cell Technician
--- OUTSIDE RECORDS SUMMARY | 2020-06-17 18:51 | XMS REPORT | Continuity of Care Document ---
:1975 Author Organization [facility] t Address 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-07 Me thodi disorder, disorder, 00:00: st single single 00 episode, episode, severe severe without without psychotic psychotic features features Allergies, Adverse Reactions, Alerts Allergy Allergy Status Severity Reaction(s) Onset Inactive Treating Comm ents Source Name Type Date Date Clinician vancomyc DA Active SV 2018-05 [facility] 16 Clear 00:00: [place] 00 [facility] Vancomyc Propensi Active Rash 2017-05 [place] in ty to 06-07 Methodi adverse 00:00: st reaction 00 s to drug Family History Family Member Diagnosis Comments Start Date Stop Date Source Natural mother Bipolar disorder [place] Other Suicide Attempts [place] Ho[place]aoism Natural sister Suicide Attempts [place] Social History Social Habit Start Date Stop Date Quantity Comments Source History SDOH [place] [facility] Alcohol Std Drinks History SDOH [place] [facility] Alcohol Binge Sex Assigned At [place] [facility] ethod[facility] Alcohol intake 2018-04-15 2018-04-[address] [facility] thodist 00:00:00 00:00:00 non-drinker of alcohol (finding) History [facility] 2018-04-15 2018-04-15 1 [place] [facility] od[facility] Alcohol Frequency 00:00:00 00:00:00 Medications Ordered Filled Start Stop Current Ordering Indication Dosage Frequency Signature Comments Components Source Medication Medication Date Date Medication? Clinician (SIG) Name Name ESTRADIOL 2017-05 Yes QD daily. Ramu n VAGL 04 Methodi 15:38: st 23 omeprazole [...] Source Name Name RAN LIM PF 2018-04-07 Completed [place] 00:00:00 [facility] Procedures This patient has no known procedures. Plan of Care Planned Activity Planned Date Details Comments Source Future Scheduled 2019-12-12 INFLUENZA VACCINE Luis Fernandoto n [facility]ism Test 00:00:00 [code = INFLUENZA VACCINE] Future Scheduled 1994 Screening for [place] [facility] thodist Test 00:00:00 malignant neoplasm of cervix (procedure) [code = 345529807] Future Scheduled 1991-11-26 Hepatitis C [place] [facility] hodist Test 00:00:00 screening (procedure) [code = 543491914] Future Scheduled 1989 COVID-19 VACCINE (1 [place] Test 00:00:00 of 2) [code = COVID-19 VACCINE (1 of 2)] Encounters Start End Encounter Admission Attending Care Care Encounter Source Date/Time Date/Time Type Type Clinicians Facility Department ID 2020-05-23 2020-05-23 Laboratory Lab, Adc [facility] [id number] 17:48:49 18:08:49 Only [facility] [id number] [place] [id number] kristinamilcar [id number] nal 0[address] Office [address] One Results Test Description Test Time Test Comments Results Result Comments Source SURGICAL SPECIMENS 2019-05-05 07:51:00 RUN DATE: 05/05/19 [facility] *LIVE* PAGE 1 RUN TIME: 0751 Specimen Inquiry RUN USER: INTERFACE PATIENT: JACKLYN COLEMAN POLLY LOC: G.5WS U #: [id number] AGE/SX: 43/F ROOM: [facility] RE04/28/19CLARA DR: Julian Dasilva MD : 71 BED: 1 DIS: 04/29/19 STATUS: DIS IN TLOC: SPEC #: [id number] RECD: 12/18/19-1204 STATUS: SOUT REQ #: [id number] SELMA: 04/29/19 [facility] DR: Julian Dasilva MD ENTERED: 05/02/19 SP TYPE: SURG SPEC OTHR DR: Michael Amaral MD ORDERED: LEVEL 4 CODES: [id number] - STOMACH, NOS COPIES TO: Michael Amaral MD [address] [place] [address] Julian Dasilva MD [address] [place] [address] [address] [place] [address] PROCEDURES: GM LEVEL 4 (Incomplete) [...] CONTINUED ON NEXT PAGE RUN DATE: 05/05/19 [facility] *LIVE* PAGE 2 RUN TIME: 750 Specimen Inquiry RUN USER: INTERFACE SPEC #: [id number] PATIENT: JACKLYN COLEMAN POLLY #[id number] (Continued)--------- --- POST-OP DIAGNOSIS Hypertension, obesity PRE-OP [...] IUnit/L 20-125 N code = ALKP) SERUM [id number] 04:06:00 Test Item Value Reference Range Interpretation Comments SERUM IRON (test code = IRON) 51 mcg/dL 35-150 N VITAMIN [id number] 04:06:00 Test Item Value Reference Range Interpretation Comments VITAMIN B12 (test code = VITB12) 349 pg/mL 193-986 N VIT B1 WHOLE [id number] 04:06:00 Test Item Value Reference Range Interpretation Comments VIT B1 WHOLE BLOOD 96.1 nmol/L 66.5-200.0 Performed At: (test code = [facility] [id number]) [place], [place] [id number] catarina Wren MD Ph:[phone] VITAMIN D [id number] 04:06:00 Test Item Value Reference Range Interpretation Comments VITAMIN D 25-HYDROXY (test code = 12.5 ng/mL 30-100 L VITD25) BASIC METABOLIC [id number] 08:18:00 Test Item Value Reference Range Interpretation [...] 8.7 mg/dL 8.0-10.5 N CA) UR NICOTINE [id number] 08:10:00 Test Item Value Reference Range Interpretation Comments UR NICOTINE QUAL (test code = Negative ng/mL Wetpxs=729 NICU) CBC W/AUTO [id number] 07:26:00 Test Item Value Reference Range Interpretation [...] (test code NO = MDIFF) COMPREHENSIVE METABOLIC [id number] 21:52:00 Test Item Value Reference Range Interpretation [...] N TOTAL (test code = ALKP) SERUM [id number] 21:52:00 Test Item Value Reference Range Interpretation Comments SERUM IRON (test code = IRON) 51 mcg/dL 35-150 N VITAMIN [id number] 21:52:00 Test Item Value Reference Range Interpretation Comments VITAMIN B12 (test code = VITB12) 349 pg/mL 193-986 N VIT B1 WHOLE [id number] 21:52:00 Test Item Value Reference Range Interpretation Comments VIT B1 WHOLE BLOOD (test code = ZSCQ3UF) VITAMIN D [id number] 21:52:00 Test Item Value Reference Range Interpretation Comments VITAMIN D 25-HYDROXY (test code = 12.5 ng/mL 30-100 L VITD25) COMPREHENSIVE METABOLIC [id number] 18:24:00 Test Item Value Reference Range Interpretation [...] N TOTAL (test code = ALKP) SERUM [id number] 18:24:00 Test Item Value Reference Range Interpretation Comments SERUM IRON (test code = IRON) 51 mcg/dL 35-150 N VITAMIN [id number] 18:24:00 Test Item Value Reference Range Interpretation Comments VITAMIN B12 (test code = VITB12) 349 pg/mL 193-986 N VIT B1 WHOLE [id number] 18:24:00 Test Item Value Reference Range Interpretation Comments VIT B1 WHOLE BLOOD (test code = TDNA8ME) VITAMIN D [id number] 18:24:00 Test Item Value Reference Range Interpretation Comments VITAMIN D 25-HYDROXY (test code = ng/mL 30-100 VITD25) COMPREHENSIVE METABOLIC [id number] 17:58:00 Test Item Value Reference Range Interpretation [...] (test IUnit/L 20-125 code = ALKP) SERUM [id number] 17:58:00 Test Item Value Reference Range Interpretation Comments SERUM IRON (test code = IRON) mcg/dL 35-150 VITAMIN [id number] 17:58:00 Test Item Value Reference Range Interpretation Comments VITAMIN B12 (test code = VITB12) pg/mL 193-986 VIT B1 WHOLE [id number] 17:58:00 Test Item Value Reference Range Interpretation Comments VIT B1 WHOLE BLOOD (test code = PJOP9WL) VITAMIN D [id number] 17:58:00 Test Item Value Reference Range Interpretation Comments VITAMIN D 25-HYDROXY (test code = ng/mL 30-100 VITD25) PROTHROMBIN [id number] 17:45:00 Test Item Value Reference Range Interpretation [...] o prevent recurre nt infarct). THROMBOPLASTIN TIME [id number] 17:45:00 Test Item Value Reference Range Interpretation Comments THROMBOPLASTIN TIME 38.5 Seconds 25.0-39.5 N Ther apeutic PARTIAL (test code = Range: 50.4 - 88.3 PTT) Seconds Effective 08/26/2018 CBC W/AUTO [id number] 17:36:00 Test Item Value Reference Range Interpretation [...] NO = MDIFF) - XR CHEST 2 [id number] 17:19:00 FAX: Michael Mojica MD [phone] [place]: St: PRE FAX: Julian Dasilva MD [phone] Name: JACKLYN COLEMAN [facility] : 1975 Age/S: 43/F [address] [place] [address] Unit #: [id number] Loc: [place] [address] Phys: Julian Dasilva MD Acct: [id number] Dis Date: Status: PRE IN PHONE #: [phone] Exam Date: 04/27/20191717 FAX #: [phone] Reason: PRE-OP SLEEVE GASTRECTOMY EXAMS: CPT CODE: [id number] XR CHEST 2 V 77144 2 VIEW CXR HISTORY: Preop chest x-ray prior to sleeve gastrectomy. COMPARISON: No relevant priors available. The lungs are clear. Pulmonary vascularity normal. The pleura, cardiomediastinal silhouette and bony thorax are normal. IMPRESSION: Normal exam. END [id number] at 5469 Reported and signed by: Delgado Montoya M.D. CC: Michael Amaral MD; Julian Dasilva MD Technologist: Isaiah Cah RT(R) Trnscrd Jordan e/Time/By: 04/27/2019 (4337) : By: [email or web address] Orig Print D/T: S: 04/27/2019 (6384) PAGE 1 Signed Report
--- OUTSIDE RECORDS SUMMARY | 2020-06-17 18:51 | XMS REPORT | Summary of Care ---
:1975 Author Organization [facility] Address [address] [place] [address] Care Team Providers Name Role Phone Unavailable Primary Care Provider Unavailable Encounter Details Date Type Department Care Team Description 05/23/2020 Laboratory Only [facility] Kristyn Coughlin, RECORDS CUSTODIAN [address] [facility] [address] [place] [address] Exposure to Medicine - [facility], Adc Fam Pob I SARS-associated [address] [facility] coronaviru s ([address] Dx) [place] [id number] Allergies Not on Filedocumented as of this encounter (statuses as of 05/23/2020) Medications Not on filedocumented as of this encounter (statuses as of 05/23/2020) Active Problems Not on filedocumented as of this encounter (statuses as of 05/23/2020) Social History Tobacco Use Types Packs/Day Years Used Date Never Assessed Sex Assigned at Date Recorded Not on file documented as of this encounter Last Filed Vital Signs Not on filedocumented in this encounter Nursing Notes Tatiana Pearce MA - 05/23/2020 6:20 PM Hardeep Christel Goldsmith is a 44 year old female here for a Rule Out Covid-19 Nasopharyngeal Swab. Patient educated on plan of care for visit, swabbing technique, risks and benefits of test and length of time to receive results. Verbal consent obtained to perform test. CDC Fact Sheet for Patients provided to patient. All droplet and contact precautions taken with appropriate PPE worn while interacting with patient. - Goggles - N95 Mask - Gloves - Gown RR=17 O2 Sat=97% Patient swabbed using appropriate nasopharyngeal technique, and patient tolerated well. Patient was discharged in stable condition. Tatiana Pearce MA 05/23/2020 5:54 PM [employer] documented in this encounter Plan of Treatment Name Type Priority Associated Diagnoses Order S chedule COVID-19 (MOLECULAR LAB Routine Exposure to SARS-asso ciated Ordered: 05/23/2020 TESTING coronavirus NUCLEIC ACID AMPLIFICATION) Health Maintenance Due Date Last Done Comments Depression Screening 1985 DTaP,Tdap,and Td Vaccines (1 - 1992 Tdap) PAP SMEAR 1994 Breast Cancer Screening 2013 (MAMMOGRAM) INFLUENZA VACCINE (#1) 2020 Colorectal Cancer Screening 11/26/2023 PNEUMOCOCCAL 0-64 YEARS COMBINED Aged Out No longer eligible based on SERIES patient's age to complete this topic documented as of this encounter Results Not on filedocumented in this encounter Visit Diagnoses Diagnosis Exposure to SARS-associated coronavirus - Primary documented in this encounter Additional Health Concerns Infection Onset Date Last Indicated Resolved Time COVID-19 Rule Out 05/23/2020 05/23/2020 documented as of this encounter Insurance Payer Benefit Plan Subscriber ID Effective Dates Phone Address Type / Group [facility] [id number] 2016-Malena [phone] [place] [address] [place] PPO/[place] - OUT OF t [id number] [place] [address] documented as of this encounter
--- NOTE | 2020-06-17 20:10 | RAD REPORT ---
EXAM DESCRIPTION: RAD - Chest Single View - 06/17/2020 7:55 pm CLINICAL HISTORY: CHEST PAIN Chest pain. COMPARISON: Chest Pa And Lat (2 Views) dated 03/28/2019 FINDINGS: Portable technique limits examination quality. The lungs are grossly clear. The heart is normal in size. No displaced fractures. IMPRESSION: No acute intrathoracic process suspected.
[2020-06-17 20:34] LABS: Absolute Lymphocytes (CBC) 2.9 K/uL (0.7-4.9); Basophils % 0.6 % (0-1.3); Hematocrit 40.2 % (36.0-45.0); Lymphocytes % 39.8 % (15.3-44.8); MPV 8.7 fL (7.6-11.3); RBC Red Blood Cell Count 4.53 M/uL (3.86-4.86)
[2020-06-17 20:40] LABS: Protime INR 0.88
[2020-06-17 20:52] LABS: ALT/SGPT 27 U/L (12-78); AST/SGOT 20 U/L (15-37); Albumin 3.7 g/dL (3.4-5.0); Alkaline Phosphatase 103 U/L (45-117); BUN Blood Urea Nitrogen 13 mg/dL (7-18); Bicarbonate 29 mmol/L (21-32); Bilirubin Direct < 0.1 mg/dL (0-0.2); Bilirubin Total 0.2 mg/dL (0.2-1.0); Creatine Phosphokinase 26 U/L (26-192); Glucose Level 84 mg/dL (74-106); NT PRO-BNP 71 pg/mL (<125); Potassium 4.1 mmol/L (3.5-5.1); Protein, Total 7.8 g/dL (6.4-8.2); Sodium Level 142 mmol/L (136-145); Troponin (Emerg Dept Use Only) < 0.02 ng/mL (0.0-0.045)
[2020-06-17] MEDS ORDERED: ASPIRIN 81 MG CHEWABLE TABLET ONE (21:20)
--- NOTE | 2020-06-17 22:02 | ER ---
Nurse's Notes [facility] Name: Shira Goldsmith Age: 44 yrs Sex: Female : 1975 Arrival Date: 06/17/2020 Time: 18:47 Bed 25 Private MD: Diagnosis: Chest pain, unspecified Presentation: 06/17 19:05 Chief complaint: Patient states: Around 1400 I started having a pressure pain in my jb4 left chest with a fluttering sensation that radiated to my left arm. No other symptoms occurred. 19:05 Coronavirus screen: Client denies travel out of the [place] in the last 14 days. At this jb4 time, the client does not indicate any symptoms associated with coronavirus-19. Ebola Screen: No symptoms or risks identified at this time. Initial Sepsis Screen: Does the patient meet any 2 criteria? No. Patient's initial sepsis screen is negative. Does the patient have a suspected source of infection? No. Patient's initial sepsis screen is negative. Risk Assessment: Do you want to hurt yourself or someone else? Patient reports no desire to harm self or others. Onset of symptoms was June 17, 2020. Transition of care: patient was not received from another setting of care. 19:05 Method Of Arrival: Ambulatory jb4 19:05 Acuity: IMELDA 3 jb4 Historical: - Home Meds: 21:22 hydroxyzine HCl 25 mg Oral tab 1 tab HS [Active]; estradiol 1 mg oral tab once daily sf [Active]; Vascepa 1 gram oral cap 1 caps daily [Active]; Bystolic 10 mg oral tab 1 tab once daily [Active]; Livalo 4 mg oral tab 1 tab once daily [Active]; - PMHx: 21:18 Stomach Ulcers; Ovarian cyst; sf 21:22 High Cholesterol; Hyperlipidemia; Anxiety; sf - PSHx: 21:18 Hysterectomy; Cholecystectomy; Appendectomy; Tonsillectomy; Hernia repair; sf - Immunization history:: Adult Immunizations up to date. - Social history:: Smoking status: Patient denies any tobacco usage or history of. 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 Assessment: 19:30 General: Appears in no apparent distress. comfortable, well groomed, Behavior is calm, sf cooperative, appropriate for age. Pain: Complains of pain in anterior aspect of left upper chest Pain radiates to left arm Quality of pain is described as heavy, pressure. Neuro: No deficits noted. Level of Consciousness is awake, alert, obeys commands, Oriented to person, place, time, situation, Appropriate for age. Cardiovascular: Capillary refill < 3 seconds Patient's skin is warm and dry. Rhythm is sinus rhythm Chest pain quality is heaviness, pressure, is located in left. Respiratory: No deficits noted. Airway is patent Respiratory effort is even, unlabored, Respiratory pattern is regular, symmetrical. 21:08 Reassessment: Patient appears in no apparent distress at this time. No changes from sf previously documented assessment. Patient and/or family updated on plan of care and expected duration. Pain level reassessed. Patient is alert, oriented x 3, equal unlabored respirations, skin warm/dry/pink. 21:58 Reassessment: Patient appears in no apparent distress at this time. No changes from sf previously documented assessment. Patient and/or family updated on plan of care and expected duration. Pain level reassessed. Patient is alert, oriented x 3, equal unlabored respirations, skin warm/dry/pink. Patient states symptoms have not improved. Vital Signs: 19:05 BP 132 / 64; Pulse 68; Resp 18; Temp 98.1(O); Pulse Ox 99% on R/A; Weight 80.74 kg (R); jb4 Height 4 ft. 11 in. (149.86 cm); Pain 6/10; 19:30 BP 113 / 71; Pulse 60; Resp 16; Pulse Ox 97% ; sf 19:42 BP 113 / 71; Pulse 63; Resp 16; Pulse Ox 97% on R/A; sf 20:30 BP 135 / 84; Pulse 69; Resp 16; Pulse Ox 96% ; sf 21:00 Pulse 66; Resp 16; Pulse Ox 97% ; sf 21:30 BP 112 / 76; Pulse 65; Resp 16; Pulse Ox 96% ; sf 22:30 BP 122 / 72; Pulse 56; Resp 16; Pulse Ox 96% ; sf 23:22 BP 101 / 68; Pulse 57; Resp 16; Pulse Ox 98% ; sf 19:05 Body Mass Index 35.95 (80.74 kg, 149.86 cm) [facility] ED Course: 18:47 Patient arrived in ED. as 19:05 Arm band placed on right wrist. jb4 19:06 Johnie Velasquez MD is Attending Physician. 7 19:20 Missed attempt(s): 20 gauge in right forearm. sf 19:30 Patient has correct armband on for positive identification. Placed in gown. Bed in low sf position. Call light in reach. Side rails up X2. title i teacher on. Pulse ox on. NIBP on. 19:30 Door closed. Noise minimized. Lights dimmed. Warm blanket given. sf 19:32 Missed attempt(s): 22 gauge in left forearm. sf 19:37 Luis Alberto Pena, RN is Primary Nurse. sf 19:55 XRAY Chest (1 view) In Process Unspecified. EDMS 20:11 Inserted saline lock: 20 gauge in right upper arm, using aseptic technique. Blood rr5 collected. 22:01 Odell Irizarry DO is Hospitalizing Provider. [facility] 22:51 Urine collected: clean catch specimen, clear. sf 22:52 Triage completed. jb4 22:52 Diet: Patient given a heart healthy meal tray. sf 22:53 Given water per request, ambulatory to restroom with no assist. sf Administered Medications: 21:05 Drug: Aspirin Chewable Tablet 324 mg Route: PO; sf 21:57 Drug: morphine 2 mg Route: IVP; Site: Other; sf 22:59 Follow up: Response: No adverse reaction sf 21:57 Drug: Zofran (Ondansetron) 4 mg Route: IVP; Site: Other; Outcome: 22:01 Decision to Hospitalize by Provider. [facility] 06/18 02:00 Patient left the ED. lp1 Signatures: Dispatcher [employer] EDMS Viky Nicholas Laura, RN RN lp1 Truman Ernst RN RN jb4 Sami Lowery RN RN rr5 Johnie Velasquez MD MD 7 Luis Alberto Pena, HARJINDER RN sf
--- NOTE | 2020-06-17 22:02 | EDPHYS ---
Physician Documentation [facility] Name: Shira Goldsmith Age: 44 yrs Sex: Female : 1975 Arrival Date: 06/17/2020 Time: 18:47 Bed 25 Private MD: ED Physician Johnie Velasquez HPI: 06/17 19:22 This 44 yrs old Female presents to ER via Unassigned with complaints of Chest mh7 Pressure, Palpitations. 19:22 The patient or guardian reports chest pain that is located primarily in the anterior mh7 chest wall, left. Onset: today. The pain. Associated signs and symptoms: Pertinent positives: cough, lightheadedness, nausea, palpitations, shortness of breath, Pertinent negatives: abdominal pain, diaphoresis, headache, lower extremity pain, lower extremity swelling, near syncope, recent travel, syncope, vomiting. The chest pain is described as a pressure. Duration: The patient or guardian reports multiple episodes, that are intermittent, that wax and wane. Modifying factors: The symptoms are alleviated by nothing. the symptoms are aggravated by nothing. Severity of pain: At its worst the pain was moderate today, in the emergency department the pain is unchanged. Historical: - Home Meds: 21:22 hydroxyzine HCl 25 mg Oral tab 1 tab HS [Active]; estradiol 1 mg oral tab once daily sf [Active]; Vascepa 1 gram oral cap 1 caps daily [Active]; Bystolic 10 mg oral tab 1 tab once daily [Active]; Livalo 4 mg oral tab 1 tab once daily [Active]; - PMHx: 21:18 Stomach Ulcers; Ovarian cyst; sf 21:22 High Cholesterol; Hyperlipidemia; Anxiety; sf - PSHx: 21:18 Hysterectomy; Cholecystectomy; Appendectomy; Tonsillectomy; Hernia repair; sf - Immunization history:: Adult Immunizations up to date. - Social history:: Smoking status: Patient denies any tobacco usage or history of. 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 ROS: 19:22 Constitutional: Negative for fever, chills, and weight loss, Eyes: Negative for injury, mh7 pain, redness, and discharge, ENT: Negative for injury, pain, and discharge, Neck: Negative for injury, pain, and swelling, Back: Negative for injury and pain, : Negative for injury, bleeding, discharge, and swelling, MS/Extremity: Negative for injury and deformity, Skin: Negative for injury, rash, and discoloration, Neuro: Negative for headache, weakness, numbness, tingling, and seizure, Psych: Negative for depression, anxiety, suicide ideation, homicidal ideation, and hallucinations, Allergy/Immunology: Negative for hives, rash, and allergies, Endocrine: Negative for neck swelling, polydipsia, polyuria, polyphagia, and marked weight changes, Hematologic/Lymphatic: Negative for swollen nodes, abnormal bleeding, and unusual bruising. Exam: 19:22 Constitutional: This is a well developed, well nourished patient who is awake, alert, mh7 and in no acute distress. Head/Face: Normocephalic, atraumatic. Eyes: Pupils equal round and reactive to light, extra-ocular motions intact. Lids and lashes normal. Conjunctiva and sclera are non-icteric and not injected. Cornea within normal limits. Periorbital areas with no swelling, redness, or edema. Neck: Trachea midline, no thyromegaly or masses palpated, and no cervical lymphadenopathy. Supple, full range of motion without nuchal rigidity, or vertebral point tenderness. No Meningismus. 19:22 Cardiovascular: Regular rate and rhythm with a normal S1 and S2. No gallops, murmurs, or rubs. Normal PMI, no JVD. No pulse deficits. Respiratory: Lungs have equal breath sounds bilaterally, clear to auscultation and percussion. No rales, rhonchi or wheezes noted. No increased work of breathing, no retractions or nasal flaring. Abdomen/GI: Soft, non-tender, with normal bowel sounds. No distension or tympany. No guarding or rebound. No evidence of tenderness throughout. Back: No spinal tenderness. No costovertebral tenderness. Full range of motion. Skin: Warm, dry with normal turgor. Normal color with no rashes, no lesions, and no evidence of cellulitis. MS/ Extremity: Pulses equal, no cyanosis. Neurovascular intact. Full, normal range of motion. Neuro: Awake and alert, GCS 15, oriented to person, place, time, and situation. Cranial nerves II-XII grossly intact. Motor strength 5/5 in all extremities. Sensory grossly intact. Cerebellar exam normal. Normal gait. Psych: Awake, alert, with orientation to person, place and time. Behavior, mood, and affect are within normal limits. 19:22 Chest/axilla: Inspection: normal, Palpation: tenderness, that is mild, of the anterior aspect of left upper chest, that partially reproduces the patient's complaints, Axilla: are normal, Lymph nodes: lymphadenopathy is not appreciated. Vital Signs: 19:05 BP 132 / 64; Pulse 68; Resp 18; Temp 98.1(O); Pulse Ox 99% on R/A; Weight 80.74 kg (R); jb4 Height 4 ft. 11 in. (149.86 cm); Pain 6/10; 19:30 BP 113 / 71; Pulse 60; Resp 16; Pulse Ox 97% ; sf 19:42 BP 113 / 71; Pulse 63; Resp 16; Pulse Ox 97% on R/A; sf 20:30 BP 135 / 84; Pulse 69; Resp 16; Pulse Ox 96% ; sf 21:00 Pulse 66; Resp 16; Pulse Ox 97% ; sf 21:30 BP 112 / 76; Pulse 65; Resp 16; Pulse Ox 96% ; sf 22:30 BP 122 / 72; Pulse 56; Resp 16; Pulse Ox 96% ; sf 23:22 BP 101 / 68; Pulse 57; Resp 16; Pulse Ox 98% ; sf 19:05 Body Mass Index 35.95 (80.74 kg, 149.86 cm) jb4 MDM: 21:33 HEART Score: History: ECG: Age: Risk Factors:. mh7 21:59 Differential diagnosis: abnormal EKG, acute myocardial infarction, acute pericarditis, 7 anxiety, coronary artery disease chest wall pain, costochondritis, pericarditis, pneumonia, pulmonary embolus. HEART Score: History: Moderately Suspicious (1), ECG: Non specific repolarization disturbance / LBTB / PM (1), Age: > 45 and < 65 years (1), Risk Factors: > or = 3 Risk factors for atherosclerotic disease (2), [Hypercholesterolemia] [Hypertension] [+ Family HX] Troponin: < or = 1 x Normal Limit (0), Total Score = 5. The patient was given aspirin in the Emergency Department. Data reviewed: vital signs, nurses notes, lab test result(s), cardiac enzymes, CBC, electrolytes, urinalysis, EKG, radiologic studies, plain films. Data interpreted: Pulse oximetry: on room air is 97 %. Interpretation: normal. Counseling: I had a detailed discussion with the patient and/or guardian regarding: the historical points, exam findings, and any diagnostic results supporting the discharge/admit diagnosis, lab results, radiology results, the need for further work-up and treatment in the hospital. Response to treatment: the patient's symptoms have mildly improved after treatment. 22:01 Patient medically screened. [facility] 06/17 19:20 Order name: Basic Metabolic Panel; Complete Time: 21:06 [facility] 06/17 19:20 Order name: CBC with Diff; Complete Time: 21: [facility] 06/17 19:20 Order name: LFT's; Complete Time: 21: [facility] 06/17 19:20 Order name: Magnesium; Complete Time: 21: [facility] 06/17 19:20 Order name: NT PRO-BNP; Complete Time: 21:06 [facility] 06/17 19:20 Order name: Troponin (emerg Dept Use Only); Complete Time: 21: [facility] 06/17 19:21 Order name: D-Dimer; Complete Time: 21:06 [facility] 06/17 19:21 Order name: TSH; Complete Time: 21:06 [facility] 06/17 19:21 Order name: CPK; Complete Time: 21:06 7 06/17 19:28 Order name: UDS [facility] 06/17 20:33 Order name: Protime (+INR); Complete Time: 21:06 [facility] 06/17 22:42 Order name: COVID-19 : Document "Date of Symptom Onset" if Symptomatic. lp1 06/18 00:37 Order name: SARS-COV-2 RT PCR EDID 06/17 19:20 Order name: XRAY Chest (1 view); Complete Time: 20:23 [facility] 06/17 19:20 Order name: EKG; Complete Time: 19:21 [facility] 06/17 19:20 Order name: Cardiac monitoring; Complete Time: 19:44 7 06/17 19:20 Order name: EKG - Nurse/Tech; Complete Time: 19:44 [facility] 06/17 19:20 Order name: IV Saline Lock; Complete Time: 20:24 [facility] 06/17 19:20 Order name: Labs collected and sent; Complete Time: 20:24 [facility] 06/17 19:20 Order name: O2 Per Protocol; Complete Time: 19:44 [facility] 06/17 19:20 Order name: O2 Sat Monitoring; Complete Time: 19:44 [facility] 06/17 19:28 Order name: Urine Dipstick-Ancillary (obtain specimen) [facility] Administered Medications: 21:05 Drug: Aspirin Chewable Tablet 324 mg Route: PO; sf 21:57 Drug: morphine 2 mg Route: IVP; Site: Other; sf 22:59 Follow up: Response: No adverse reaction sf 21:57 Drug: Zofran (Ondansetron) 4 mg Route: IVP; Site: Other; Disposition: 06/17/20 22:01 Hospitalization ordered by Odell Irizarry for Observation. Preliminary diagnosis is Chest pain, unspecified. - Bed requested for Telemetry/MedSurg (observation). - Status is Observation. lp1 - Condition is Stable. - Problem is new. - Symptoms have improved. Signatures: Dispatcher [employer] [facility] Kala Ruiz, RN RN lp1 Mook Raygoza, CAMPUS WELLNESS COORDINATOR-C CAMPUS WELLNESS COORDINATOR-Cla1 Cathleen Zamora, RN RN Truman Ernst RN RN jb4 Johnie Velasquez MD MD 7 Luis Alberto Pena RN RN sf Corrections: (The following items were deleted from the chart) 20:33 19:21 PROTIME (+INR)+COAG.LAB.BRZ ordered. [facility] 06/18 00:47 06/17 22:01 Hospitalization Ordered by Odell Irizarry DO for Observation. Preliminary cg diagnosis is Chest pain, unspecified. Bed requested for Telemetry/MedSurg (observation). Status is Observation. Condition is Stable. Problem is new. Symptoms have improved. [facility] 06/18 02:00 00:47 06/17/2020 22:01 Hospitalization Ordered by Odell Irizarry DO for Observation. lp1 Preliminary diagnosis is Chest pain, unspecified. Bed requested for Telemetry/MedSurg (observation). Status is Observation. Condition is Stable. Problem is new. Symptoms have improved. cg
[2020-06-17] MEDS ORDERED: ONDANSETRON 4 MG/2 ML VIAL ONE (22:09)
[2020-06-17] MEDS ORDERED: MORPHINE 2 MG/ML SYR ONE (22:09)
[2020-06-17 23:15] LABS: Barbiturates NEGATIVE (NEGATIVE); Benzodiazepines NEGATIVE (NEGATIVE); Cocaine NEGATIVE (NEGATIVE); METHAMPHETAM NEGATIVE (NEGATIVE); Methadone NEGATIVE (NEGATIVE); Opiates POSITIVE (NEGATIVE); Phencyclidine NEGATIVE (NEGATIVE); THC Cannibis NEGATIVE (NEGATIVE)
--- NOTE | 2020-06-17 23:40 | P.HP ---
Certification for Inpatient Patient admitted to: Observation With expected LOS: <2 Midnights Patient will require the following post-hospital care: None Practitioner: I am a practitioner with admitting privileges, knowledge of patient current condition, hospital course, and medical plan of care. Services: Services provided to patient in accordance with Admission requirements found in Title 42 Section 412.3 of the Code of Federal Regulations <Mook Raygoza - Last Filed: 06/17/20 23:38> Patient admitted to: Observation <Odell Irizarry - Last Filed: 06/18/20 14:14> Patient History Date of Service: 06/17/20 Primary Care Provider: Dr. Amaral Reason for admission: Chest pain History of Present Illness: 44-year-old female with history of hypertension, hyperlipidemia presents to the emergency department for chest pain. Patient reports that today she has at home relaxing when she began to have a pressure-like pain to left anterior chest wall which radiate to her back as well as both arms which was associated with some lightheadedness. Patient reports pain was not exacerbated by movement or relieved by anything in particular, reports a few similar episodes over the course of the last few days. Patient has had stress test approximately 6 months ago that was reported to have been positive, has never had a heart catheterization. Patient's father had major myocardial infarction at the age of 50. Initial troponin negative, EKG without acute changes chest x- ray negative. ED provider wishes to admit patient for further evaluation and management. - Past Medical/Surgical History Diabetic: No -: ASTHMA -: Hypertension -: Hyperlipidemia -: TOTAL HYSTERECTOMY -: APPENDECTOMY -: Cholecystectomy -: Hernia repair Psychosocial/ Personal History: Patient lives with family - Family History Father -: Heart disease, Diabetes Mother Notes: BOWEL OBSTRUCTION - Social History Alcohol use: No CD- Drugs: No Caffeine use: No Place of Residence: Home <Mook Raygoza - Last Filed: 06/17/20 23:38> Date of Service: 06/18/20 <Odell Irizarry - Last Filed: 06/18/20 14:14> Allergies vancomycin Allergy (Severe, Verified 01/13/20 16:53) Itching/Hives/Rash Home Medications: Estradiol 1 mg PO BEDTIME 12/19/14 Multivit with Calcium,Iron,Min [Multiple Vitamins For Women] 1 tab PO BEDTIME 01/13/20 hydrOXYzine HCL [Atarax*] 25 mg PO BEDTIME 01/13/20 Icosapent Ethyl [Vascepa] 1 gm PO BEDTIME 06/18/20 Nebivolol HCl [Bystolic*] 10 mg PO BEDTIME 06/18/20 Pantoprazole [Protonix Tab] 40 mg PO DAILY #30 tab 06/18/20 Pitavastatin Calcium [Livalo] 4 mg PO BEDTIME 06/18/20 Review of Systems 10-point ROS is otherwise unremarkable Cardiovascular: Chest Pain, Palpitations, Light Headedness, As per HPI <Mook Raygoza - Last Filed: 06/17/20 23:38> Physical Examination - Physical Exam General: Alert, In no apparent distress HEENT: Atraumatic, PERRLA, Mucous membr. moist/pink Neck: Supple, 2+ carotid pulse no bruit, No LAD Respiratory: Clear to auscultation bilaterally, Normal air movement Cardiovascular: Regular rate/rhythm, Normal S1 S2 Gastrointestinal: Normal bowel sounds, No tenderness Musculoskeletal: No tenderness Integumentary: No rashes Neurological: Normal speech, Normal strength at 5/5 x4 extr, Normal tone, Normal affect - Studies Laboratory Data (last 24 hrs) 06/17/20 20:10: PT 10.1, INR 0.88 06/17/20 20:10: PT Cancelled, INR Cancelled 06/17/20 20:10: WBC 7.30, Hgb 13.7, Hct 40.2, Plt Count 238 06/17/20 20:10: Sodium 142, Potassium 4.1, BUN 13, Creatinine 0.69, Glucose 84, Magnesium 2.0, Total Bilirubin 0.2, AST 20, ALT 27, Alkaline Phosphatase 103 <Mook Raygoza - Last Filed: 06/17/20 23:38> - Studies Laboratory Data (last 24 hrs) 06/17/20 20:10: PT 10.1, INR 0.88 06/17/20 20:10: PT Cancelled, INR Cancelled 06/17/20 20:10: WBC 7.30, Hgb 13.7, Hct 40.2, Plt Count 238 06/17/20 20:10: Sodium 142, Potassium 4.1, BUN 13, Creatinine 0.69, Glucose 84, Magnesium 2.0, Total Bilirubin 0.2, AST 20, ALT 27, Alkaline Phosphatase 103 <Odell Irizarry - Last Filed: 06/18/20 14:14> Assessment and Plan - Plan Assessment Chest pain rule out ACS Hypertension Hyperlipidemia Plan Chest pain rule out ACS: Monitor on telemetry, trend troponins, daily aspirin, continue statin and beta-jeanne therapy. Cardiology consult in place. DVT prophylaxis Lovenox 40 mg subcutaneous once daily. Appreciate further input from cardiology. Hypertension: Continue home medications. Hyperlipidemia: Continue home medications. Discharge Plan: Home Plan to discharge in: 24 Hours - Advance Directives Does patient have a Living Will: No Does patient have a Durable POA for Healthcare: No - Code Status/Comfort Care Code Status Assessed: Yes (Full code) Critical Care: No <Mook Raygoza - Last Filed: 06/17/20 23:38> - Plan Case discussed in detail with nurse practitioner. Agree with plan of care. Please see discharge summary for details <Odell Irizarry - Last Filed: 06/18/20 14:14>
[2020-06-18] MEDS ORDERED: ACETAMINOPHEN 500 MG TAB PO PRN (00:40)
[2020-06-18] MEDS: MORPHINE 2 MG/ML SYR IV PRN ×3 (00:50→12:02)
[2020-06-18] MEDS ORDERED: MORPHINE 2 MG/ML SYR ONE (01:04)
[2020-06-18] MEDS: ONDANSETRON 4 MG/2 ML VIAL IV PRN ×3 (02:15→12:02)
[2020-06-18 02:50] VITALS: BMI 35.9
[2020-06-18 03:09] VITALS: O2SAT 96
[2020-06-18 05:09] LABS: Absolute Lymphocytes (CBC) 3.2 K/uL (0.7-4.9); Basophils % 0.7 % (0-1.3); Hematocrit 39.3 % (36.0-45.0); Lymphocytes % 46.4 % (15.3-44.8); RBC Red Blood Cell Count 4.42 M/uL (3.86-4.86)
[2020-06-18 05:36] LABS: BUN Blood Urea Nitrogen 15 mg/dL (7-18); Bicarbonate 30 mmol/L (21-32); Glucose Level 89 mg/dL (74-106); HDL Cholesterol 57 mg/dL (40-60); LDL Cholesterol, Calculated 78 (<130); Magnesium 2.2 mg/dL (1.8-2.4); Potassium 3.9 mmol/L (3.5-5.1); Sodium Level 142 mmol/L (136-145); Troponin I < 0.02 ng/mL (0.0-0.045)
[2020-06-18 05:38] LABS: C-Reactive Protein 4.84 mg/L (<3.00); Ferritin 70.8 ng/mL (8-388)
[2020-06-18] MEDS ORDERED: ASPIRIN EC 81 MG TAB PO SCH (09:00)
[2020-06-18] MEDS ORDERED: POTASSIUM CL SA 10 MEQ TAB PO ONE (09:00)
[2020-06-18] MEDS ORDERED: HYDRALAZINE HCL 25 MG TABLET PO SCH (09:00)
[2020-06-18] MEDS ORDERED: NEBIVOLOL HCL 5 MG TAB PO SCH (09:00)
[2020-06-18] MEDS ORDERED: ENOXAPARIN 40 MG/0.4 ML SQ SCH (09:00)
[2020-06-18 13:40] VITALS: BP 123/62; TEMP 97.5
--- NOTE | 2020-06-18 13:41 | P.DS ---
Admission Date: 06/17/20 Discharge Date: 06/18/20 Primary Care Provider: Dr. Amaral Disposition: ROUTINE DISCHARGE Discharge Condition: GOOD Reason for Admission: Chest pain Consultations: Cardiology-Dr. Briscoe Procedures: COVID: Positive CXR: FINDINGS: Portable technique limits examination quality. The lungs are grossly clear. The heart is normal in size. No displaced fractures. IMPRESSION: No acute intrathoracic process suspected. Medical Problem List: Chest pain, atypical Hypertension Hyperlipidemia COVID 19 positive, asymptomatic GERD with history of Hiatal hernia surgery Obesity, BMI 36 Brief History of Present Illness: 44-year-old female with history of hypertension, hyperlipidemia, and GERD/hiatal hernia with prior surgery presents to the emergency department for chest pain. Patient reports that today she has at home relaxing when she began to have a pressure-like pain to left anterior chest wall which radiate to her back as well as both arms which was associated with some lightheadedness. Patient reports pain was not exacerbated by movement or relieved by anything in particular, reports a few similar episodes over the course of the last few days. Patient was admitted for further evaluation and treatment. Hospital Course: Patient presented with chest pain. Patient was admitted for further evaluation and treatment. Patient has seen Cardiology in the past. Patient currently takes medication for hypertension and hyperlipidemia. Cardiology evaluated patient. Cardiac enzymes unremarkable. Cardiology recommends no further intervention at this time. Recommend to follow up with cardiology in 1 week to follow up this hospitalization. Patient may require outpatient cardiac evaluation later this week. Patient may continue with aspirin 81 mg daily. Patient has history of GERD with hiatal hernia surgery. Will recommend to start Protonix 40 mg daily at this time. If cardiac workup unremarkable recommend GI evaluation. Patient with hypertension. At discharge patient will continue with Bystolic 10 mg at bedtime. Recommend to maintain blood pressure less than 130/80. Further adjustment can be done by her PCP. Patient with hyperlipidemia. At discharge patient will continue with Vascepa 1 g daily and Livalo 4 mg at bedtime. Lipid panel unremarkable. Patient will continue with her other medications. Patient was positive for COVID 19. She had been diagnosed in the past. Patient asymptomatic at this time. Continue with CDC guidelines for COVID. Vital Signs/Physical Exam: Temp Pulse Resp BP Pulse Ox 97 F 54 16 101/58 L 98 06/18/20 08:00 06/18/20 09:00 06/18/20 12:32 06/18/20 09:00 06/18/20 12:32 General: Alert, In no apparent distress, Oriented x3, Cooperative HEENT: Atraumatic Neck: Supple Respiratory: Clear to auscultation bilaterally, Normal air movement Cardiovascular: Normal pulses, Regular rate/rhythm Gastrointestinal: Normal bowel sounds, Soft and benign, Non-distended, No tenderness, No masses, No rebound, No guarding Neurological: Normal speech, Normal strength at 5/5 x4 extr, Normal tone, Normal affect Laboratory Data at Discharge: WBC 6.90 K/uL (4.3-10.9) 06/18/20 04:22 Hgb 12.9 g/dL (12.0-15.0) 06/18/20 04:22 Hct 39.3 % (36.0-45.0) 06/18/20 04:22 Plt Count 212 K/uL (152-406) 06/18/20 04:22 PT 10.1 SECONDS (9.5-12.5) 06/17/20 20:10 PT Cancelled 06/17/20 20:10 INR 0.88 06/17/20 20:10 INR Cancelled 06/17/20 20:10 Sodium 142 mmol/L (136-145) 06/18/20 04:22 Potassium 3.9 mmol/L (3.5-5.1) 06/18/20 04:22 BUN 15 mg/dL (7-18) 06/18/20 04:22 Creatinine 0.55 mg/dL (0.55-1.3) 06/18/20 04:22 Glucose 89 mg/dL (74-106) 06/18/20 04:22 Magnesium 2.2 mg/dL (1.8-2.4) 06/18/20 04:22 Total Bilirubin 0.2 mg/dL (0.2-1.0) 06/17/20 20:10 AST 20 U/L (15-37) 06/17/20 20:10 ALT 27 U/L (12-78) 06/17/20 20:10 Alkaline Phosphatase 103 U/L (45-117) 06/17/20 20:10 Troponin I < 0.02 ng/mL (0.0-0.045) 06/18/20 11:27 Triglycerides 103 mg/dL (<150) 06/18/20 04:22 Cholesterol 156 mg/dL (<200) 06/18/20 04:22 HDL Cholesterol 57 mg/dL (40-60) 06/18/20 04:22 Cholesterol/HDL Ratio 2.74 06/18/20 04:22 Home Medications: Estradiol 1 mg PO BEDTIME 12/19/14 Multivit with Calcium,Iron,Min [Multiple Vitamins For Women] 1 tab PO BEDTIME 01/13/20 hydrOXYzine HCL [Atarax*] 25 mg PO BEDTIME 01/13/20 Icosapent Ethyl [Vascepa] 1 gm PO BEDTIME 06/18/20 Nebivolol HCl [Bystolic*] 10 mg PO BEDTIME 06/18/20 Pantoprazole [Protonix Tab] 40 mg PO DAILY #30 tab 06/18/20 Pitavastatin Calcium [Livalo] 4 mg PO BEDTIME 06/18/20 New Medications: Pantoprazole [Protonix Tab] 40 mg PO DAILY #30 tab Physician Discharge Instructions: Patient presented with chest pain. Patient was admitted for further evaluation and treatment. Patient has seen Cardiology in the past. Patient currently takes medication for hypertension and hyperlipidemia. Cardiology evaluated patient. Cardiac enzymes unremarkable. Cardiology recommends no further intervention at this time. Recommend to follow up with cardiology in 1 week to follow up this hospitalization. Patient may require outpatient cardiac evaluation later this week. Patient may continue with aspirin 81 mg daily. Patient has history of GERD with hiatal hernia surgery. Will recommend to start Protonix 40 mg daily at this time. If cardiac workup unremarkable recommend GI evaluation. Patient with hypertension. At discharge patient will continue with Bystolic 10 mg at bedtime. Recommend to maintain blood pressure less than 130/80. Further adjustment can be done by her PCP. Patient with hyperlipidemia. At discharge patient will continue with Vascepa 1 g daily and Livalo 4 mg at bedtime. Lipid panel unremarkable. Patient will continue with her other medications. Patient was positive for COVID 19. She had been diagnosed in the past. Patient asymptomatic at this time. Continue with CDC guidelines for COVID. Diet: AHA Activity: Ad danyelle Followup: Lang Lopez MD [Primary Care Provider] - Time spent managing pt's care (in minutes): 55
[2020-06-18] MEDS ORDERED: ATORVASTATIN 20 MG TAB PO SCH (21:00)
[2020-06-18] MEDS ORDERED: icosapent ethyL 1 GM CAP PO SCH (21:00)
[2020-06-18] MEDS ORDERED: hydrOXYzine HCL 25 MG TAB PO SCH (21:00)
[2020-06-18] MEDS ORDERED: ESTRADIOL 1 MG PO SCH (21:00)
[2020-06-18] MEDS ORDERED: MULTIVITAMIN TAB PO SCH (21:00)
== END 2020-06-18 15:00 | disposition home or self-care (01) ==
LOC: ER 18:45 → ERHOLD 23:04 → 4TH 06-18 01:11
PROVIDERS: ADMIT Family Medicine; ATTEND Family Medicine
DX: R07.89 Other chest pain (principal); I10 Essential (primary) hypertension; E78.5 Hyperlipidemia, unspecified; K21.9 Gastro-esophageal reflux disease without esophagitis; E66.9 Obesity, unspecified; Z68.36 Body mass index [BMI] 36.0-36.9, adult; Z86.16 Personal history of COVID-19; J45.909 Unspecified asthma, uncomplicated; R94.31 Abnormal electrocardiogram [ECG] [EKG]
CPT/HCPCS: 93005; 85025 ×2; 80048 ×2; 36415; 83735 ×2; 82550; 85610; 80061; 85379; 80076; 80307 ×8; 84443 ×2; 84484 ×3; 84439; 82728; 83880; 86140; 71045; 96375; 96374; 99284; U0003; J1650; J2270 ×4; J2405 ×4; G0378 ×2

== ENCOUNTER 2021-07-04 17:50 | Emergency (ER) | payer BC ==
--- OUTSIDE RECORDS SUMMARY | 2021-07-04 17:53 | XMS REPORT | Continuity of Care Document ---
:1975 Author Organization [facility] Address [address] [place] [address] Care Team Providers Name Role Phone GREEN Attending Clinician Unavailable Lab, Fam Pob I Attending Clinician Unavailable Aly LOOM TUNER Attending Clinician Pito Dasilva Attending Clinician Unavailable Wan Amaral Admitting Clinician Unavailable Payers Payer Name Policy Type Policy Number Effective Date Expiration Date S mary [facility] - [id number] 2016 00:00:00 OUT OF STATE Problems This patient has no known problems. Allergies, Adverse Reactions, Alerts Allergy Allergy Status Severity Reaction(s) Onset Inactive Treating Comm ents Source Name Type Date Date Clinician vancomyc DA Active SV 2018- [facility] in 2-16 Clear 00:00: [place] 00 [facility] vancomyc DA Active SV RED ALEX 2018- [facility] in RASH 06-28 Clear 00:00: [place] 00 [facility] NO KNOWN Drug Active Univers ALLERGIE Class ity of S [facility] Social History Social Habit Start Date Stop Date Quantity Comments Source Sex Assigned At [facility] Smoking Status Start Date Stop Date Source Unknown if ever smoked Univers[facility] y [facility] Medications This patient has no known medications. Procedures This patient has no known procedures. Encounters Start End Encounter Admission Attending Care Care Encounter Source Date/Time Date/Time Type Type Clinicians Facility Department ID 2020-05-23 2020-05-23 Outpatient Cody VILLARREAL [facility] [id number] 18:20:00 18:20:00 KRISTYN ity [facility] 2020-05-23 2020-05-23 Laboratory Lab, [facility] [id number] 17:48:49 18:08:49 Only Fam Pob I Health [id number] [place] [id number] Professio [phone] nal [facility] Office Building One 2020-05-23 2020-05-23 Laboratory Lab, [facility] Fam Pob I [facility] [id number] [facility] 17:48:49 18:08:49 Only Kristyn Villarreal [facility] [id number] ity of [place] [id number] Luis as Professio [phone] [place] [facility]ical [address] Office [address] One 2019-06-03 2019-06-03 Outpatient Julian Zambrano [facility] DIAB [id number] [facility] 07:30:00 07:30:00 [id number] [facility] Results Test Description Test Time Test Comments Results Result Comments Source SURGICAL SPECIMENS 2019-05-05 07:51:00 RUN DATE: 05/05/19 [facility] *LIVE* PAGE 1 RUN TIME: 0751 Specimen Inquiry RUN USER: INTERFACE PATIENT: JACKLYN COLEMAN LOC: [id number] U #: [id number] AGE/SX: 43/F ROOM: [facility] RE04/28/19REG DR: Julian Dasilva MD : 71 BED: 1 DIS: 04/29/19 STATUS: DIS IN TLOC: SPEC #: [id number] RECD: 04/29/19 STATUS: SOUT REQ #: [id number] SELMA: 04/29/[address] [facility] [address]: Julian Dasilva MD ENTERED: 05/02/19 SP TYPE: SURG SPEC OTHR DR: Michael Amaral MD ORDERED: LEVEL 4 CODES: [id number] - STOMACH, NOS COPIES TO: Michael Amaral MD [address] [place] [address] Julian Dasilva MD [address] [place] [address] [address] [place] [address] PROCEDURES: LEVEL 4 (Incomplete) TISSUES: 1. STOMACH, NOS [...] CONTINUED ON NEXT PAGE RUN DATE: 05/05/19 [facility] *LIVE* PAGE 2 RUN TIME: 750 Specimen Inquiry RUN USER: INTERFACE SPEC #: [id number] PATIENT: JACKLYN COLEMAN POLLY #[id number] (Continued)--------- --- POST-OP DIAGNOSIS Hypertension, obesity PRE-OP [...] IUnit/L 20-125 N code = ALKP) SERUM [id number] 04:06:00 Test Item Value Reference Range Interpretation Comments SERUM IRON (test code = IRON) 51 mcg/dL 35-150 N VITAMIN [id number] 04:06:00 Test Item Value Reference Range Interpretation Comments VITAMIN B12 (test code = VITB12) 349 pg/mL 193-986 N VIT B1 WHOLE [id number] 04:06:00 Test Item Value Reference Range Interpretation Comments VIT B1 WHOLE BLOOD 96.1 nmol/L 66.5-200.0 Performed At: BN (test code = [facility] [id number]) [facility] [place] [id number] catarina Wren MD Ph:[phone] VITAMIN D [id number] 04:06:00 Test Item Value Reference Range Interpretation Comments VITAMIN D 25-HYDROXY (test code = 12.5 ng/mL 30-100 L VITD25) BASIC METABOLIC [id number] 08:18:00 Test Item Value Reference Range Interpretation [...] 8.7 mg/dL 8.0-10.5 N CA) UR NICOTINE [id number] 08:10:00 Test Item Value Reference Range Interpretation Comments UR NICOTINE QUAL (test code = Negative ng/mL Wyoomp=092 NICU) CBC W/AUTO [id number] 07:26:00 Test Item Value Reference Range Interpretation [...] (test code NO = MDIFF) COMPREHENSIVE METABOLIC [id number] 21:52:00 Test Item Value Reference Range Interpretation [...] N TOTAL (test code = ALKP) SERUM [id number] 21:52:00 Test Item Value Reference Range Interpretation Comments SERUM IRON (test code = IRON) 51 mcg/dL 35-150 N VITAMIN [id number] 21:52:00 Test Item Value Reference Range Interpretation Comments VITAMIN B12 (test code = VITB12) 349 pg/mL 193-986 N VIT B1 WHOLE [id number] 21:52:00 Test Item Value Reference Range Interpretation Comments VIT B1 WHOLE BLOOD (test code = KHII4BX) VITAMIN D [id number] 21:52:00 Test Item Value Reference Range Interpretation Comments VITAMIN D 25-HYDROXY (test code = 12.5 ng/mL 30-100 L VITD25) COMPREHENSIVE METABOLIC [id number] 18:24:00 Test Item Value Reference Range Interpretation [...] N TOTAL (test code = ALKP) SERUM [id number] 18:24:00 Test Item Value Reference Range Interpretation Comments SERUM IRON (test code = IRON) 51 mcg/dL 35-150 N VITAMIN [id number] 18:24:00 Test Item Value Reference Range Interpretation Comments VITAMIN B12 (test code = VITB12) 349 pg/mL 193-986 N VIT B1 WHOLE [id number] 18:24:00 Test Item Value Reference Range Interpretation Comments VIT B1 WHOLE BLOOD (test code = ZETJ3RZ) VITAMIN D [id number] 18:24:00 Test Item Value Reference Range Interpretation Comments VITAMIN D 25-HYDROXY (test code = ng/mL 30-100 VITD25) COMPREHENSIVE METABOLIC [id number] 17:58:00 Test Item Value Reference Range Interpretation [...] (test IUnit/L 20-125 code = ALKP) SERUM [id number] 17:58:00 Test Item Value Reference Range Interpretation Comments SERUM IRON (test code = IRON) mcg/dL 35-150 VITAMIN [id number] 17:58:00 Test Item Value Reference Range Interpretation Comments VITAMIN B12 (test code = VITB12) pg/mL 193-986 VIT B1 WHOLE [id number] 17:58:00 Test Item Value Reference Range Interpretation Comments VIT B1 WHOLE BLOOD (test code = MJVQ6JY) VITAMIN D [id number] 17:58:00 Test Item Value Reference Range Interpretation Comments VITAMIN D 25-HYDROXY (test code = ng/mL 30-100 VITD25) PROTHROMBIN [id number] 17:45:00 Test Item Value Reference Range Interpretation [...] o prevent recurre nt infarct). THROMBOPLASTIN TIME [id number] 17:45:00 Test Item Value Reference Range Interpretation Comments THROMBOPLASTIN TIME 38.5 Seconds 25.0-39.5 N Ther apeutic PARTIAL (test code = Range: 50.4 - 88.3 PTT) Seconds Effective 08/26/2018 CBC W/AUTO [id number] 17:36:00 Test Item Value Reference Range Interpretation [...] NO = MDIFF) - XR CHEST 2 [id number] 17:19:00 FAX: Michael Mojica MD [phone] [place]: St: PRE FAX: Julian Dasilva MD [phone] Name: JACKLYN COLEMAN [facility] : 1975 Age/S: 43/F [address] [place] [address] Unit #: [id number] Loc: [place] [address] Phys: Julian Dasilva MD Acct: [id number] Dis Date: Status: PRE IN PHONE #: [phone] Exam Date: 04/27/20191717 FAX #: [phone] Reason: PRE-OP SLEEVE GASTRECTOMY EXAMS: CPT CODE: [id number] XR CHEST 2 V 64535 2 VIEW CXR HISTORY: Preop chest x-ray prior to sleeve gastrectomy. COMPARISON: No relevant priors available. The lungs are clear. Pulmonary vascularity normal. The pleura, cardiomediastinal silhouette and bony thorax are normal. IMPRESSION: Normal exam. END [id number] at 1179 Reported and signed by: Delgado Montoya M.D. CC: Michael Amaral MD; Julian Dasilva MD Technologist: RT Kirstie(Cody) Trnscrd Jordan e/Time/By: 04/27/2019 (9509) : By: Micaela Orig Print D/T: S: 04/27/2019 (1640) PAGE 1 Signed Report
[2021-07-04] MEDS ORDERED: KETOROLAC 30 MG/ML INJ ONE (19:51)
[2021-07-04] MEDS ORDERED: ONDANSETRON 4 MG/2 ML VIAL ONE (19:51)
[2021-07-04] MEDS ORDERED: NA CHLORIDE 0.9% 1,000 ML ONE (19:51)
[2021-07-04 20:12] LABS: Urine Blood Negative (Negative); Urine Glucose Trace (Negative); Urine Protein 1+ (Negative)
[2021-07-04 20:21] LABS: Absolute Lymphocytes (CBC) 3.2 K/uL (0.7-4.9); Hematocrit 42.4 % (36.0-45.0); Lymphocytes % 43.7 % (15.3-44.8)
--- NOTE | 2021-07-04 20:39 | RAD REPORT ---
EXAM DESCRIPTION: CT - Stone Protocol - 07/04/2021 8:20 pm CLINICAL HISTORY: back pain;Abd pain COMPARISON: CT ABD PELVIS W CONTRAST dated 12/18/2014 TECHNIQUE: Axial 3 mm thick images were obtained without oral or IV contrast. The [id number]-[id number] span s the entirety of the system including uppermost abdomen and lung bases. All CT scans are performed using dose optimization technique as appropriate and may include automated exposure control or mA/KV adjustment according to patient size. FINDINGS: No hydronephrosis is present and no obstructing ureteral calculi. No suspicious renal mass es. Isodense masses and pyelonephritis are not excluded on a stone protocol CT scan. No significant a drenal finding. No urinary bladder suspicious finding. Uterus is absent ovaries are absent, atrophic or obscured by isodense bowel. No SMOKE CHASER abnormality identifiable. Imaged portions of the liver, spleen and pancreas show no suspicious findings on non-contrast imaging . Cholecystectomy clips are present. No abnormal biliary tree dilatation. No suspicious bowel findings. No appendicitis findings. Moderate stool volume is present filling but not dilating entire colon. Sigmoid is tortuous and redundant. No hernia, mass or bulky lymphadenopathy noted. No free air, free fluid or inflammatory stranding. No significant bony abnormality. IMPRESSION: No hydronephrosis, obstructing calculus or acute finding. Isodense masses and pyelonephritis are not excluded on stone protocol technique. No emergent bowel finding. There a large amount of stool filling but not dilating the entirety colon.
[2021-07-04 21:01] LABS: BUN Blood Urea Nitrogen 20 mg/dL (7-18); Bicarbonate 31 mmol/L (21-32); Glucose Level 96 mg/dL (74-106); Lipase 282 U/L (73-393); Potassium 3.9 mmol/L (3.5-5.1); Sodium Level 139 mmol/L (136-145)
[2021-07-04 21:06] LABS: Urine Bacteria 20-50 /HPF (<20)
[2021-07-04 21:07] LABS: ALT/SGPT 28 U/L (12-78); AST/SGOT 20 U/L (15-37); Albumin 4.2 g/dL (3.4-5.0); Alkaline Phosphatase 97 U/L (45-117); Bilirubin Total 0.3 mg/dL (0.2-1.0); Protein, Total 8.3 g/dL (6.4-8.2); Urine RBC <5 /HPF (NONE SEEN)
[2021-07-04] MEDS ORDERED: CEFTRIAXONE 1000 MG/VIAL ONE (21:24)
[2021-07-04 21:26] LABS: Bilirubin Direct < 0.1 mg/dL (0-0.2)
--- NOTE | 2021-07-04 22:23 | EDPHYS ---
Physician Documentation [facility] Name: Shira Goldsmith Age: 45 yrs Sex: Female : 1975 Arrival Date: 07/04/2021 Time: 17:52 Bed 18 Private MD: ED Physician Kenna Ford HPI: 07/04 19:40 This 45 yrs old Female presents to ER via Ambulatory with complaints of Low cp Back Pain, Abdominal Pain, Urinary Incontinence. 19:40 The patient presents with pain that is acute, with no known mechanism of injury. The cp symptoms are located in the low back. 19:40 Onset: The symptoms/episode began/occurred 1 week(s) ago. Associated signs and cp symptoms: Pertinent positives: abdominal pain, dysuria, bladder incontinence, nausea, Pertinent negatives: chest pain, constipation, fever, vomiting, weakness. Patient reports she was prescribed Nitrofurantoin after TeleDoc visit with pcp. Patient reports OTC Azo not helping. 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 Pneumococcal vaccine is up to date, Flu vaccine is up to date. - Social history:: Smoking status: Patient denies any tobacco usage or history of. ROS: 19:45 Constitutional: Negative for body aches, chills, fever, poor PO intake. cp 19:45 Eyes: Negative for injury, pain, redness, and discharge. cp 19:45 ENT: Negative for ear pain, sore throat. 19:45 Cardiovascular: Negative for chest pain, palpitations. 19:45 Respiratory: Negative for cough, shortness of breath, wheezing. 19:45 Abdomen/GI: Positive for abdominal pain, nausea, of the right lower quadrant and left lower quadrant, Negative for vomiting, diarrhea, constipation. 19:45 Back: Positive for pain at rest, pain with movement, of the low back area. 19:45 : Positive for urinary symptoms. 19:45 Neuro: Negative for altered mental status, headache, weakness. 19:45 All other systems are negative. Exam: 19:50 Constitutional: The patient appears in no acute distress, alert, awake, non-toxic, well cp developed, well nourished. 19:50 Head/Face: Normocephalic, atraumatic. cp 19:50 Eyes: Periorbital structures: appear normal, Conjunctiva: normal, no exudate, no injection, Sclera: no appreciated abnormality, Lids and lashes: appear normal, bilaterally. 19:50 ENT: External ear(s): are unremarkable, Nose: is normal, Mouth: Lips: moist, Oral mucosa: moist, Posterior pharynx: Airway: no evidence of obstruction, patent. 19:50 Chest/axilla: Inspection: normal, Palpation: is normal, no crepitus, no tenderness. 19:50 Cardiovascular: Rate: normal, Rhythm: regular. 19:50 Respiratory: the patient does not display signs of respiratory distress, Respirations: normal, no use of accessory muscles, no retractions, labored breathing, is not present, Breath sounds: are clear throughout, no decreased breath sounds, no stridor, no wheezing. 19:50 Abdomen/GI: Inspection: abdomen appears normal, Bowel sounds: active, all quadrants, Palpation: soft, in all quadrants, mild abdominal tenderness, in the right lower quadrant and left lower quadrant, rebound tenderness, is not appreciated, involuntary guarding, is not appreciated. 19:50 Back: pain, that is moderate, of the low back area and mid back area, ROM is painful, with all movement, Straight leg raises: of both lower extremities does not illicit pain. 19:50 Neuro: Orientation: to person, place \T\ time. Mentation: is normal, Motor: moves all fours, strength is normal. Vital Signs: 18:08 BP 123 / 86; Pulse 71; Resp 17; Temp 97.9; Pulse Ox 96% ; Weight 82.55 kg; Height 4 ft. ap3 11 in. (149.86 cm); Pain 7/10; 18:08 Body Mass Index 36.76 (82.55 kg, 149.86 cm) ap3 MDM: 19:03 Patient medically screened. cp 20:00 Differential diagnosis: sciatica, Herniated disc UTI, pyelonephritis, sepsis. cp 22:22 Data reviewed: vital signs, nurses notes, lab test result(s), radiologic studies, CT cp scan. 22:22 Counseling: I had a detailed discussion with the patient and/or guardian regarding: the cp historical points, exam findings, and any diagnostic results supporting the discharge/admit diagnosis, lab results, radiology results, to return to the emergency department if symptoms worsen or persist or if there are any questions or concerns that arise at home. Response to treatment: the patient's symptoms have markedly improved after treatment, VSS. Pain improved. Patient appears nontoxic. Will discharge to home for continued monitoring. Patient to start oral Bactrim and stop Nitrofurantoin . 07/04 19:23 Order name: Urine Microscopic Only; Complete Time: 21:38 07/04 21:38 Interpretation: Reviewed. 07/04 19:24 Order name: Basic Metabolic Panel; Complete Time: 21:38 07/04 21:03 Interpretation: Normal except: BUN 20; GFR 78. 07/04 19:24 Order name: CBC with Diff; Complete Time: 21:03 07/04 19:24 Order name: Hepatic Function; Complete Time: 21:38 07/04 21:38 Interpretation: Normal except: TP 8.3; GLOB 4.1; A/G 1.0. 07/04 19:24 Order name: Lipase; Complete Time: 21:38 07/04 20:12 Order name: Urine Dipstick-Ancillary; Complete Time: 21:03 [facility] 07/04 21:03 Interpretation: Normal except: UKET Trace; UPROT 1+; U NIT Positive; UESTR 3+. 07/04 19:48 Order name: CT Stone Protocol; Complete Time: 21:03 07/04 21:08 Order name: Urine Culture [facility] 07/04 19:23 Order name: Urine Dipstick-Ancillary (obtain specimen); Complete Time: 20:13 07/04 19:24 Order name: IV Saline Lock; Complete Time: 20:13 07/04 19:24 Order name: Labs collected and sent; Complete Time: 20:13 07/04 21:39 Order name: PO challenge; Complete Time: 22:35 cp Administered Medications: 20:10 Drug: Ketorolac 15 mg Route: IVP; Site: left antecubital; sf1 20:10 Drug: Zofran (Ondansetron) 4 mg Route: IVP; Site: left antecubital; sf1 20:30 Drug: NS 0.9% 1000 ml Route: IV; Rate: 1 bolus; Site: left antecubital; sf1 21:25 Drug: Rocephin - (cefTRIAXone) 1 grams Route: IVPB; Infused Over: 30 mins; Site: left sf1 antecubital; 22:35 Drug: morphine 4 mg Route: IVP; Site: left antecubital; sf1 22:35 Drug: Lidoderm Patch 5 % (700 mg/patch) 1 patches Route: Topical; Site: affected area; sf1 Disposition Summary: 07/04/21 22:22 Discharge Ordered Location: Home cp Problem: new cp Symptoms: have improved cp Condition: Stable cp Diagnosis - UTI/ Urinary tract infection, site not specified cp - Low back pain cp Followup: cp - With: Private Physician - When: 1 - 2 days - Reason: Recheck today's complaints Discharge Instructions: - Discharge Summary Sheet cp - Acute Back Pain, Adult cp - Urinary Tract Infection, Adult cp - Heat Therapy cp - Back Exercises cp Forms: - Medication Reconciliation Form cp - Thank You Letter cp - Antibiotic Education cp - Prescription Opioid Use cp Prescriptions: - Lidoderm 5 % Topical adhesive patch,medicated - apply 1 patch by TOPICAL route once daily; 1 box; Refills: 0, Product Selection cp Permitted - Cyclobenzaprine 10 mg Oral Tablet - take 1 tablet by ORAL route every 8 hours As needed; 20 tablet; Refills: 0, cp Product Selection Permitted - Diclofenac Sodium 75 mg Oral tablet,delayed release (DR/EC) - take 1 tablet by ORAL route 2 times per day; 20 tablet; Refills: 0, Product cp Selection Permitted - Bactrim DS 800-160 mg Oral Tablet - take 1 tablet by ORAL route every 12 hours for 7 days; 14 tablet; Refills: 0, cp Product Selection Permitted Signatures: Dispatcher [employer] EDCarlos Wiggins PA PA cp Prokisch, Amanda RN RN ap3 Eneida Chacon RN RN sf1
--- NOTE | 2021-07-04 22:23 | ER ---
Nurse's Notes [facility] Name: Shira Goldsmith Age: 45 yrs Sex: Female : 1975 Arrival Date: 07/04/2021 Time: 17:52 Bed 18 Private MD: Diagnosis: UTI/ Urinary tract infection, site not specified;Low back pain Presentation: 07/04 18:08 Chief complaint: Patient states: she has been having low back pain, and urinary ap3 frequency for approx one week. Patient states she did teledoc and started an antibiotic, but was informed that if her symptoms didn't improve, to be evaluated in the ER. Coronavirus screen: At this time, the client does not indicate any symptoms associated with coronavirus-19. Ebola Screen: No symptoms or risks identified at this time. Initial Sepsis Screen: Does the patient meet any 2 criteria? No. Patient's initial sepsis screen is negative. Does the patient have a suspected source of infection? No. Patient's initial sepsis screen is negative. Risk Assessment: Do you want to hurt yourself or someone else? Patient reports no desire to harm self or others. Onset of symptoms was June 27, 2021. 18:08 Method Of Arrival: Ambulatory ap3 18:08 Acuity: IMELDA 3 ap3 Triage Assessment: 18:11 General: Appears in no apparent distress. Behavior is calm, cooperative, appropriate ap3 for age. Pain: Complains of pain in low back area Pain currently is 7 out of 10 on a pain scale. Pain began gradually, a week ago. Neuro: Level of Consciousness is awake, alert, obeys commands, Oriented to person, place, time, situation, Appropriate for age Gait is steady, Speech is normal. Cardiovascular: Patient's skin is warm and dry. Respiratory: Airway is patent Respiratory effort is even, unlabored, Respiratory pattern is regular, symmetrical. GI: Reports incontinence, nausea. : Reports incontinence, pain urgency, urinary frequency. 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 Pneumococcal vaccine is up to date, Flu vaccine is up to date. - Social history:: Smoking status: Patient denies any tobacco usage or history of. Screenin:12 Abuse screen: Denies threats or abuse. Nutritional screening: No deficits noted. ap3 Tuberculosis screening: No symptoms or risk factors identified. 22:53 Fall Risk None identified. sf1 Assessment: 22:51 : Reports pain flank(s), urinary frequency. Musculoskeletal: Reports pain in lumbar sf1 area, left low back and right low back. Vital Signs: 18:08 BP 123 / 86; Pulse 71; Resp 17; Temp 97.9; Pulse Ox 96% ; Weight 82.55 kg; Height 4 ft. ap3 11 in. (149.86 cm); Pain 7/10; 18:08 Body Mass Index 36.76 (82.55 kg, 149.86 cm) ap3 ED Course: 17:52 Patient arrived in ED. as 18:09 Triage completed. ap3 18:12 Arm band placed on right wrist. ap3 18:17 Rikki Richards, HARJINDER is Primary Nurse. bp 18:56 Carlos Garcia PA is PHCP. cp 18:56 Kenna Ford MD is Attending Physician. cp 20:05 Inserted saline lock: 20 gauge in left antecubital area, using aseptic technique. Blood sf1 collected. 20:12 Urine Dipstick-Ancillary Sent. sf1 20:13 Basic Metabolic Panel Sent. sf1 20:13 CBC with Diff Sent. sf1 20:13 Hepatic Function Sent. sf1 20:13 Lipase Sent. sf1 20:13 Urine Microscopic Only Sent. sf1 20:19 CT Stone Protocol In Process Unspecified. EDMS 22:38 Urine Culture Sent. sf1 22:53 Patient has correct armband on for positive identification. Bed in low position. Call sf1 light in reach. 22:53 No provider procedures requiring assistance completed. IV discontinued, intact, sf1 bleeding controlled, No redness/swelling at site. Pressure dressing applied. Administered Medications: 20:10 Drug: Ketorolac 15 mg Route: IVP; Site: left antecubital; sf1 20:10 Drug: Zofran (Ondansetron) 4 mg Route: IVP; Site: left antecubital; sf1 20:30 Drug: NS 0.9% 1000 ml Route: IV; Rate: 1 bolus; Site: left antecubital; sf1 21:25 Drug: Rocephin - (cefTRIAXone) 1 grams Route: IVPB; Infused Over: 30 mins; Site: left sf1 antecubital; 22:35 Drug: morphine 4 mg Route: IVP; Site: left antecubital; sf1 22:35 Drug: Lidoderm Patch 5 % (700 mg/patch) 1 patches Route: Topical; Site: affected area; sf1 Outcome: 22:22 Discharge ordered by MD. bustillos 22:54 Patient left the ED. sf1 Signatures: Dispatcher [employer] EDMS Viky Nicholas Corey, PA PA cp Peltier, Brian, RN RN bp Duyen Galdamez RN RN ap3 Eneida Chacon RN RN sf1
[2021-07-04] MEDS ORDERED: MORPHINE 4 MG/ML SYR ONE (22:29)
[2021-07-04] MEDS ORDERED: LIDOCAINE 4% PATCH ONE (22:34)
[2021-07-05 01:32] VITALS: BP 123/86; TEMP 97.9; O2SAT 96
== END 2021-07-04 22:54 | disposition home or self-care (01) ==
LOC: ER 17:50
DX: N39.0 Urinary tract infection, site not specified (principal); Z88.3 Allergy status to other anti-infective agents
CPT/HCPCS: 87088; 85025; 87086; 80048; 36415; 80076; 83690; 76377; 74176; J7030; J2405; 81003; 81015; 96374; 96375; 99284

== ENCOUNTER 2022-12-11 16:24 | Emergency (ER) | payer BC ==
--- OUTSIDE RECORDS SUMMARY | 2022-12-11 16:29 | XMS REPORT | Continuity of Care Document ---
:1975 Author Organization [facility] t Address [address] [facility] [place]. [address] [place] [address] Care Team Providers Name Role Phone Asked, No Pcp Primary Care Physician Unavailable KRISTYN VILLARREAL Attending Clinician Unavailable Lab, [facility] I Attending Clinician Unavailable Kristyn Carrasquillo Attending Clinician Julian Dasilva H Attending Clinician Unavailable Michael Amaral Admitting Clinician Unavailable Payers Payer Name Policy Type Policy Number Effective Date Expiration Date [id number] 2016 00:00:00 OUT OF STATE Problems Condition Condition Condition Status Onset Resolution Last Treating Co mments Source Name Details Category Date Date Treatment Clinician Date 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 - st disorder, disorder, 00:00: [facility] single single 00 l episode, episode, severe severe without without psychotic psychotic features features Allergies, Adverse Reactions, Alerts Allergy Allergy Status Severity Reaction(s) Onset Inactive Treating Comm ents Source Name Type Date Date Clinician vancomyc DA Active SV 2018-05 [facility] in -16 Clear 00[facility] van[facility] DA Active SV RED ALEX 2018-05 [facility] in RASH 16 Clear 00:00: [facility] Vancomyc Propensi Active Rash 2017-05 [facility] i in ty to 06-07 st adverse 00:00: Hospita reaction 00 l s to drug NO KNOWN Drug Active Univers ALLERGIE Class [facility] Family History Family Member Diagnosis Comments Start Date Stop Date Source Natural mother Bipolar disorder [facility] Natural sister Suicide Attempts [facility] Social History Social Habit Start Date Stop Date Quantity Comments Source Gender identity [facility] Alcohol intake 2018-04-15 2018-04-15 Current [facility] 00:[facility]:00 00:00:00 non-drinker of Hospital alcohol (finding) History of Social 2018-04-15 2018-04-[address] function 00:00:00 00:00:00 Hospital Sex Assigned At [birth year] [facility] 00:00:00 00:[facility]:00 Hospital Smoking Status Start Date Stop Date Source Unknown if ever smoked [facility] Medications Ordered Filled Start Stop Current Ordering Indication Dosage Frequency Signature Comments Components Source Medication Medication Date Date Medication? Clinician (SIG) Name Name ESTRADIOL 2017-05 Yes QD daily. Method i VAGL 06-16 st 15:38: Hospita 23 l omeprazole 2017-05 Yes 07121 40mg QD Take 40 mg [facility] (PriLOSEC) 06-[address] 40 MG 15:38: daily. Hospita capsule 23 l mirtazapine 2017-05 Yes 51864 15mg QD Take 1 [facility] (REMERON) 1-30 tablet (15 st 15 MG 00:00: mg total) Hospita tablet 00 by mouth l nightly. hydrOXYzine 2017-05 Yes 55713 25mg Q.5D Take 1 [facility] (ATARAX) 25 1-30 tablet (25 st MG tablet 00:00: mg total) Hos ingrid 00 by mouth 2 l (two) times a day as needed for anxiety. Immunizations Ordered Immunization Filled Immunization Date Status Commen ts Source Name Name FLUCELVAX QUAD PF 2018-04-[address] 00:00:00 Hospital Procedures This patient has no known procedures. Plan of Care Planned Activity Planned Date Details Comments Source Future Scheduled 2022-10-31 Screening for [facility] Test 15:44:33 malignant neoplasm of colon (procedure) [code = 608167683] Future Scheduled 2022-10-31 [facility] Test 15:44:33 malignant neoplasm of colon (procedure) [code = 546100523] Future Scheduled 2022-10-31 [facility] Test 15:44:33 malignant neoplasm of colon (procedure) [code = 153737979] Future Scheduled 2022-10-31 COVID-[address] [facility] Test 15:44:33 (#1) [code = COVID-19 VACCINE (#1)] Future Scheduled 2022-10-31 [facility] Test 15:44:33 malignant neoplasm of cervix (procedure) [code = 620543559] Future Scheduled 2022-10-31 BREAST CANCER [facility] Test 15:44:33 SCREENING [code = BREAST CANCER SCREENING] Future Scheduled 2022-10-31 [facility] Test 15:44:33 malignant neoplasm of colon (procedure) [code = 260400788] Future Scheduled 2022-10-31 [facility] Test 15:44:33 malignant neoplasm of colon (procedure) [code = 800604716] Future Scheduled 2022-10-31 INFLUENZA VACCINE [facility] Test 15:44:33 [code = INFLUENZA VACCINE] Encounters Start End Encounter Admission Attending Care Care Encounter Source Date/Time Date/Time Type Type Clinicians Facility Department ID 2020-05-23 2020-05-23 Outpatient R [facility] [id number] Univers 18:20:00 18:20:00 [facility] 2020-05-23 2020-05-23 Laboratory Lab, [facility] 1..[id number] 17:48:49 18:08:49 Only [facility] Health [id number] [place] [id number] Professio [phone] nal [address] One 2020-05-23 2020-05-23 Laboratory Lab, [facility] 1.2. [id number] [id number] Univers 17:48:49 18:08:[address] [facility] [id number] ity [facility] [id number] Luis as Professio [phone] [place] dical nal [address] Office [address] One 2019-06-03 2019-06-03 Outpatient EL Julian Dasilva [facility] DIAB [id number] 12-30 [facility] 07:30:00 07:30:00 [id number] [facility] Results Test Description Test Time Test Comments Results Result Comments Source SURGICAL SPECIMENS 2019-05-05 07:51:00 RUN DATE: 05/05/19 [facility] *LIVE* PAGE 1 RUN TIME: 8921 Specimen Inquiry RUN USER: INTERFACE PATIENT: JACKLYN GOLDSMITH POLLY LOC: G.5WS U #: [id number] AGE/SX: 43/F ROOM: [facility] RE04/28/19[facility] DR: Julian Dasilva MD : 73 BED: 1 DIS: 04/29/19 STATUS: DIS IN TLOC: SPEC #: [id number] RECD: 04/29/19-1204 STATUS: STEVEN ACOSTA #: [id number] SELMA: 04/29/[address] [facility] [address]: Julian Dasilva MD ENTERED: 05/02/19 SP TYPE: SURG SPEC OTHR DR: Michael Amaral MD ORDERED: LEVEL 4 CODES: [id number] - STOMACH, NOS COPIES TO: Michael Amaral MD [address] [place] [address] Julian Dasilva MD [address] [place] [address] [address] [place] [address] PROCEDURES: LEVEL 4 (Incomplete) TISSUES: [...] CONTINUED ON NEXT PAGE RUN DATE: 05/05/19 [facility] *LIVE* PAGE 2 RUN TIME: 750 Specimen Inquiry RUN USER: INTERFACE SPEC #: [id number] PATIENT: JACKLYN GOLDSMITH POLLY #[id number] (Continued)--------- --- POST-OP DIAGNOSIS Hypertension, obesity PRE-OP [...] IUnit/L 20-125 N code = ALKP) SERUM [id number] 04:06:00 Test Item Value Reference Range Interpretation Comments SERUM IRON (test code = IRON) 51 mcg/dL 35-150 N VITAMIN [id number] 04:06:00 Test Item Value Reference Range Interpretation Comments VITAMIN B12 (test code = VITB12) 349 pg/mL 193-986 N VIT B1 WHOLE [id number] 04:06:00 Test Item Value Reference Range Interpretation Comments VIT B1 WHOLE BLOOD 96.1 nmol/L 66.5-200.0 Performed At: (test code = [facility] vqi5852 PLGG6BF) [place], [place] [id number] catarina Wren MD Ph:[phone] VITAMIN D [id number] 04:06:00 Test Item Value Reference Range Interpretation Comments VITAMIN D 25-HYDROXY (test code = 12.5 ng/mL 30-100 L VITD25) BASIC METABOLIC [id number] 08:18:00 Test Item Value Reference Range Interpretation [...] 8.7 mg/dL 8.0-10.5 N CA) UR NICOTINE [id number] 08:10:00 Test Item Value Reference Range Interpretation Comments UR NICOTINE QUAL (test code = Negative ng/mL Caqsnd=939 NICU) CBC W/AUTO [id number] 07:26:00 Test Item Value Reference Range Interpretation [...] (test code NO = MDIFF) COMPREHENSIVE METABOLIC [id number] 21:52:00 Test Item Value Reference Range Interpretation [...] N TOTAL (test code = ALKP) SERUM [id number] 21:52:00 Test Item Value Reference Range Interpretation Comments SERUM IRON (test code = IRON) 51 mcg/dL 35-150 N VITAMIN [id number] 21:52:00 Test Item Value Reference Range Interpretation Comments VITAMIN B12 (test code = VITB12) 349 pg/mL 193-986 N VIT B1 WHOLE [id number] 21:52:00 Test Item Value Reference Range Interpretation Comments VIT B1 WHOLE BLOOD (test code = CHYS1IH) VITAMIN D [id number] 21:52:00 Test Item Value Reference Range Interpretation Comments VITAMIN D 25-HYDROXY (test code = 12.5 ng/mL 30-100 L VITD25) COMPREHENSIVE METABOLIC [id number] 18:24:00 Test Item Value Reference Range Interpretation [...] N TOTAL (test code = ALKP) SERUM [id number] 18:24:00 Test Item Value Reference Range Interpretation Comments SERUM IRON (test code = IRON) 51 mcg/dL 35-150 N VITAMIN [id number] 18:24:00 Test Item Value Reference Range Interpretation Comments VITAMIN B12 (test code = VITB12) 349 pg/mL 193-986 N VIT B1 WHOLE [id number] 18:24:00 Test Item Value Reference Range Interpretation Comments VIT B1 WHOLE BLOOD (test code = XSGF1HU) VITAMIN D [id number] 18:24:00 Test Item Value Reference Range Interpretation Comments VITAMIN D 25-HYDROXY (test code = ng/mL 30-100 VITD25) COMPREHENSIVE METABOLIC [id number] 17:58:00 Test Item Value Reference Range Interpretation [...] (test IUnit/L 20-125 code = ALKP) SERUM [id number] 17:58:00 Test Item Value Reference Range Interpretation Comments SERUM IRON (test code = IRON) mcg/dL 35-150 VITAMIN [id number] 17:58:00 Test Item Value Reference Range Interpretation Comments VITAMIN B12 (test code = VITB12) pg/mL 193-986 VIT B1 WHOLE [id number] 17:58:00 Test Item Value Reference Range Interpretation Comments VIT B1 WHOLE BLOOD (test code = ELYS2DL) VITAMIN D [id number] 17:58:00 Test Item Value Reference Range Interpretation Comments VITAMIN D 25-HYDROXY (test code = ng/mL 30-100 VITD25) PROTHROMBIN [id number] 17:45:00 Test Item Value Reference Range Interpretation Comments PROTHROMBIN TIME 11.6 SECONDS 9.3-12.9 N PATIENT (test code = PTP) INTERNATIONAL NORMAL 1.1 0.8-1.2 N TARGET INR BY RATIO (test code = INDICATIO N Indication INR) INR1. Prophylax is of venous thrombos is 2.0 - 3.0 (orthoped ic surgery), Proph ylaxis of venous throm bosis (other than hig h-risk surgery), Treat ment of Deep Vein Thrombosis/Pulm onary Embolism, Preve ntion of systemic emb olism - Tissue heart va lves, Acute Myocardia l Infarction (to prevent systemic emboli sm), Valvular heart disease, Atrial Fibrillation, Bileaflet mecha nical valve in aortic position.2. Mec hanical prosthetic valv es (high risk), 2. 5 - 3.5 Presence of Lup us Anticoagulant o r Antiphospholipi d Antibodies, Pre vention of systemic emb olism - Acute Myocardia l Infarction (to prevent recurrent infar ct). THROMBOPLASTIN TIME [id number] 17:45:00 Test Item Value Reference Range Interpretation Comments THROMBOPLASTIN TIME 38.5 Seconds 25.0-39.5 N Therape utic Range: PARTIAL (test code = 50.4 - 88.3 Seconds PTT) Effective 08/26/2018 CBC W/AUTO [id number] 17:36:00 Test Item Value Reference Range Interpretation [...] NO = MDIFF) - XR CHEST 2 [id number] 17:19:00 FAX: Michael Mojica MD [phone] [place]: St: PRE FAX: Julian Dasilva MD [phone] Name: JACKLYN GOLDSMITH [facility] : 1975 Age/S: 43/F [address] [place] [address] Unit #: [id number] Loc: [place] [address] Phys: Julian Dasilva MD Acct: [id number] Dis Date: Status: PRE IN PHONE #: [phone] Exam Date: 171 FAX #: [phone] Reason: PRE-OP SLEEVE GASTRECTOMY EXAMS: CPT CODE: [id number] XR CHEST 2 V 87472 2 VIEW CXR HISTORY: Preop chest x-ray prior to sleeve gastrectomy. COMPARISON: No relevant priors available. The lungs are clear. Pulmonary vascularity normal. The pleura, cardiomediastinal silhouette and bony thorax are normal. IMPRESSION: Normal exam. END IMPRESSION [id number] at 4034 Reported and signed by: Delgado Montoya M.D. CC: Michael Amaral MD; Julian Dasilva MD Technologist: RT Kirstie(R) Trnscrd Date/Time/By: 04/27/2019 (5619) : By: BrendaRTB Orig Print D/T: S: 04/27/2019 (7513) PAGE 1 Si gned Report Notes Date/Time Note Provider Source 2019-04-29 14:26:00-00:00 [facility] ([facility]) Discharge Summary REPORT#:[id number] REPORT STATUS: Signed DATE:04/29/19 TIME: 1426 PATIENT: JACKLYN GOLDSMITH UNIT #: [id number] ROOM/BED: [place] [address] : [birth year] AGE: 43 SEX: F ATTEND: Julian Dasilva ADM AUTHOR: Padmini Del Real * ALL edits or amendments must be made on the [employer]/computer document * PCP PCP Discharge to: home General Information Date of admission: Observation Start Date: Date of admission: 04/28/19 Date of discharge: 04/29/19 Admission diagnosis: morbid obesity, HTN Discharge diagnosis: same Hospital course: Patient seen and evaluated with Dr. Dasilva. Patient reports doing well. Pain controlled. Ambulatory around unit. Tolerating l iquid diet with no nausea or vomiting. Pt. condition on discharge: stable Allergies: Allergies: vancomycin (Coded, Severe, RED ALEX RASH, ) Med Rec PCP PCP: PCP: Michael Amaral MD Med Rec Discharge meds: Stop taking the following medications: OMEPRAZOLE ER (PriLOSEC) 40 MG CAP.DR 40 MILLIGRAM ORAL DAILY. amLODIPine (NORVASC) 10 MG TAB 10 MILLIGRAM ORAL DAILY. Continue taking these medications: ESTRADIOL (ESTRACE) 1 MG TAB 1 MILLIGRAM ORAL DAILY. hydrOXYzine HCL (ATARAX) 25 MG TAB 25 MILLIGRAM ORAL DAILY. Objective VS/I O Last Documented: Result Date Time Pulse Ox 92 04/29 1133 B/P 111/69 04/29 1133 B/P Mean 83.0 04/29 1133 O2 Delivery Room air 04/29 1133 Temp 36.9 04/29 1133 Pulse 79 04/29 1133 Resp 16 04/29 1133 O2 Flow Rate 10.725019 04/28 1309 24 hour I O ending at 0700: 04/29 0700 04/28 1900 Intake Total 30.00 Output Total Balance 30.00 Intake, IV 30.00 Number Voids 1 Patient Weight Weight (lb): 211 Weight (oz): 6.77 Weight (kg): 95.900 General appearance: alert, awake, no acute distr ess Head/Eyes: atraumatic, normocephalic Neck: full range of motion GI: soft, no guarding, no rebound, no distention Extremities: moves all, no edema-all extremities Musculoskeletal: full range of motion Neuro/MAXILLOFACIAL SURGEON: alert, oriented X 3 Considered stroke alert: no Skin: dry, intact Wound/incision: Location: abdomen Site Condition: edges approximated, incision in tact Psychiatry: normal affect, normal judgment/insig ht, normal mood Results Findings/Data: Laboratory Tests: 04/29 0515 Chemistry Sodium (134 - 147 mEq/L) 137 Potassium (3.4 - 5.0 mEq/L) 4.4 Chloride (100 - 108 mEq/L) 106 Carbon Dioxide (21 - 33 mEq/L) 23 Anion Gap (0 - 20) 12 BUN (7 - 18 mg/dL) 13 Creatinine (0.6 - 1.3 mg/dL) 0.6 Glomerular Filtr Rate (95 - 105) 108.1 H Glucose (70 - 110 mg/dL) 88 Calcium (8.0 - 10.5 mg/dL) 8.7 Hematology WBC (4.5 - 11.0 x10 3/uL) 9.38 RBC (3.54 - 5.02 x10 6/uL) 4.50 Hgb (11.0 - 15.0 g/dL) 12.9 Hct (33.0 - 45.0 %) 40.2 MCV (81.0 - 99.0 fL) 89.3 MCH (27.0 - 33.0 pg) 28.7 MCHC (33.0 - 37.0 g/dL) 32.1 L RDW (11.5 - 14.5 %) 12.3 Plt Count (150 - 400 x10 3/uL) 270 MPV (7.0 - 9.0 fL) 10.9 H Neut % (Auto) (56.0 - 77.0 %) 81.6 H Lymph % (Auto) (14.0 - 32.0 %) 13.4 L Moffat % (Auto) (4.8 - 9.0 %) 4.4 L Eos % (Auto) (0.3 - 3.7 %) 0.0 L Baso % (Auto) (0.0 - 2.0 %) 0.1 Neut # (Auto) (2.0 - 7.6 x10 3/uL) 7.65 H Lymph # (Auto) (1.0 - 3.8 x10 3/uL) 1.26 Moffat # (Auto) (0.1 - 0.8 x10 3/uL) 0.41 Eos # (Auto) (0.0 - 0.2 x10 3/uL) 0.00 Baso # (Auto) (0.0 - 0.2 x10 3/uL) 0.01 Abs Immat Gran (auto) (0.00 - 0.03 x10 3/uL) 0. 05 H Add Manual Diff NO Immature Gran % (0.0 - 2.0 %) 0.5 Nucleated RBC % (0 - 0 %) 0.0 Nucleated RBCs # (Man) (0.0 - 0.1 x10 3/uL) 0.0 0 Results: labs reviewed, vital signs stable Discharge Instructions Diet: bariatric liquid diet (goal 60g protein 30 oz water), crush medications prior to ingestion, may swallow if tiny Activity: light duty, non-strenuous, DO NOT lift more than 10 to 15lbs for 2 weeks Wound/dressing care: Keep wound clean and dry, O K to shower tomorrow Equipment/supplies: wear abdominal binde r daily while awake and active okay to remove to shower and sleep Additional instructions: monitor blood pressure daily may take BP medications if reading above 150 systolic Follow-up Appointments PCP: PCP: Michael Amaral MD Attending Physician: Attending Physician: Julian Dasilva MD Follow up: 1 week Electronically Signed by Padmini Del Real on at 1428 RPT #:[id number] END OF REPORT 2019-04-29 14:26:00-00:00 [facility] ([facility]) Discharge Summary REPORT#:[id number] REPORT STATUS: Signed DATE:04/29/19 TIME: 1426 PATIENT: JACKLYN GOLDSMITH POLLY UNIT #: [id number] ROOM/BED: [place] [address] : [birth year] AGE: 43 SEX: F ATTEND: Julian Dasilva ADM AUTHOR: Padmini Del Real * ALL edits or amendments must be made on the el [employer]/computer document * Padmini Del Real 04/29/19 1426: PCP PCP Discharge to: home General Information Date of admission: Observation Start Date: Date of admission: 04/28/19 Date of discharge: 04/29/19 Admission diagnosis: morbid obesity, HTN Discharge diagnosis: same Hospital course: Patient seen and evaluated with Dr. Dasilva. Patient reports doing well. Pain controlled. Ambulatory around unit. Tolerating l iquid diet with no nausea or vomiting. Pt. condition on discharge: stable Allergies: Allergies: vancomycin (Coded, Severe, RED ALEX RASH, ) Med Rec PCP PCP: PCP: Michael Amaral MD Med Rec Discharge meds: Stop taking the following medications: OMEPRAZOLE ER (PriLOSEC) 40 MG CAP.DR 40 MILLIGRAM ORAL DAILY. amLODIPine (NORVASC) 10 MG TAB 10 MILLIGRAM ORAL DAILY. Continue taking these medications: ESTRADIOL (ESTRACE) 1 MG TAB 1 MILLIGRAM ORAL DAILY. hydrOXYzine HCL (ATARAX) 25 MG TAB 25 MILLIGRAM ORAL DAILY. Objective VS/I O Last Documented: Result Date Time Pulse Ox 92 04/29 1133 B/P 111/69 04/29 1133 B/P Mean 83.0 04/29 1133 O2 Delivery Room air 04/29 1133 Temp 36.9 04/29 1133 Pulse 79 04/29 1133 Resp 16 04/29 1133 O2 Flow Rate 10.075939 04/28 1309 24 hour I O ending at 0700: 04/29 0700 04/28 1900 Intake Total 30.00 Output Total Balance 30.00 Intake, IV 30.00 Number Voids 1 Patient Weight Weight (lb): 211 Weight (oz): 6.77 Weight (kg): 95.900 General appearance: alert, awake, no acute distr ess Head/Eyes: atraumatic, normocephalic Neck: full range of motion GI: soft, no guarding, no rebound, no distention Extremities: moves all, no edema-all extremities Musculoskeletal: full range of motion Neuro/MAXILLOFACIAL SURGEON: alert, oriented X 3 Considered stroke alert: no Skin: dry, intact Wound/incision: Location: abdomen Site Condition: edges approximated, incision in tact Psychiatry: normal affect, normal judgment/insig ht, normal mood Results Findings/Data: Laboratory Tests: 04/29 0515 Chemistry Sodium (134 - 147 mEq/L) 137 Potassium (3.4 - 5.0 mEq/L) 4.4 Chloride (100 - 108 mEq/L) 106 Carbon Dioxide (21 - 33 mEq/L) 23 Anion Gap (0 - 20) 12 BUN (7 - 18 mg/dL) 13 Creatinine (0.6 - 1.3 mg/dL) 0.6 Glomerular Filtr Rate (95 - 105) 108.1 H Glucose (70 - 110 mg/dL) 88 Calcium (8.0 - 10.5 mg/dL) 8.7 Hematology WBC (4.5 - 11.0 x10 3/uL) 9.38 RBC (3.54 - 5.02 x10 6/uL) 4.50 Hgb (11.0 - 15.0 g/dL) 12.9 Hct (33.0 - 45.0 %) 40.2 MCV (81.0 - 99.0 fL) 89.3 MCH (27.0 - 33.0 pg) 28.7 MCHC (33.0 - 37.0 g/dL) 32.1 L RDW (11.5 - 14.5 %) 12.3 Plt Count (150 - 400 x10 3/uL) 270 MPV (7.0 - 9.0 fL) 10.9 H Neut % (Auto) (56.0 - 77.0 %) 81.6 H Lymph % (Auto) (14.0 - 32.0 %) 13.4 L Moffat % (Auto) (4.8 - 9.0 %) 4.4 L Eos % (Auto) (0.3 - 3.7 %) 0.0 L Baso % (Auto) (0.0 - 2.0 %) 0.1 Neut # (Auto) (2.0 - 7.6 x10 3/uL) 7.65 H Lymph # (Auto) (1.0 - 3.8 x10 3/uL) 1.26 Moffat # (Auto) (0.1 - 0.8 x10 3/uL) 0.41 Eos # (Auto) (0.0 - 0.2 x10 3/uL) 0.00 Baso # (Auto) (0.0 - 0.2 x10 3/uL) 0.01 Abs Immat Gran (auto) (0.00 - 0.03 x10 3/uL) 0. 05 H Add Manual Diff NO Immature Gran % (0.0 - 2.0 %) 0.5 Nucleated RBC % (0 - 0 %) 0.0 Nucleated RBCs # (Man) (0.0 - 0.1 x10 3/uL) 0.0 0 Results: labs reviewed, vital signs stable Discharge Instructions Diet: bariatric liquid diet (goal 60g protein 30 oz water), crush medications prior to ingestion, may swallow if tiny Activity: light duty, non-strenuous, DO NOT lift more than 10 to 15lbs for 2 weeks Wound/dressing care: Keep wound clean and dry, O K to shower tomorrow Equipment/supplies: wear abdominal binde r daily while awake and active okay to remove to shower and sleep Additional instructions: monitor blood pressure daily may take BP medications if reading above 150 systolic Follow-up Appointments PCP: PCP: Michael Amaral MD Attending Physician: Attending Physician: Julian Dasilva MD Follow up: 1 week Julian Dasilva 05/08/19 1310: Attestations Physician Attestation Reviewed findings plan: Reviewed the findings and plan as documented Electronically Signed by Padmini Del Real on at 1428 RPT #:[id number] END OF REPORT 2019-04-29 14:26:00-00:00 [facility] ([facility]) Discharge Summary REPORT#:[id number] REPORT STATUS: Signed DATE:04/29/19 TIME: 1426 PATIENT: JACKLYN GOLDSMITH UNIT #: [id number] ROOM/BED: 54-1 : 73 AGE: 43 SEX: F ATTEND: Julian Dasilva ADM AUTHOR: Padmini Del Real * ALL edits or amendments must be made on the el ectronic/computer document * Padmini Del Real 04/29/19 1426: PCP PCP Discharge to: home General Information Date of admission: Observation Start Date: Date of admission: 04/28/19 Date of discharge: 04/29/19 Admission diagnosis: morbid obesity, HTN Discharge diagnosis: same Hospital course: Patient seen and evaluated with Dr. Dasilva. Patient reports doing well. Pain controlled. Ambulatory around unit. Tolerating l iquid diet with no nausea or vomiting. Pt. condition on discharge: stable Allergies: Allergies: vancomycin (Coded, Severe, RED ALEX RASH, ) Med Rec PCP PCP: PCP: Michael Amaral MD Med Rec Discharge meds: Stop taking the following medications: OMEPRAZOLE ER (PriLOSEC) 40 MG CAP.DR 40 MILLIGRAM ORAL DAILY. amLODIPine (NORVASC) 10 MG TAB 10 MILLIGRAM ORAL DAILY. Continue taking these medications: ESTRADIOL (ESTRACE) 1 MG TAB 1 MILLIGRAM ORAL DAILY. hydrOXYzine HCL (ATARAX) 25 MG TAB 25 MILLIGRAM ORAL DAILY. Objective VS/I O Last Documented: Result Date Time Pulse Ox 92 04/29 1133 B/P 111/69 04/29 1133 B/P Mean 83.0 04/29 1133 O2 Delivery Room air 04/29 1133 Temp 36.9 04/29 1133 Pulse 79 04/29 1133 Resp 16 04/29 1133 O2 Flow Rate 10.911503 04/28 1309 24 hour I O ending at 0700: 04/29 0700 04/28 1900 Intake Total 30.00 Output Total Balance 30.00 Intake, IV 30.00 Number Voids 1 Patient Weight Weight (lb): 211 Weight (oz): 6.77 Weight (kg): 95.900 General appearance: alert, awake, no acute distr ess Head/Eyes: atraumatic, normocephalic Neck: full range of motion GI: soft, no guarding, no rebound, no distention Extremities: moves all, no edema-all extremities Musculoskeletal: full range of motion Neuro/MAXILLOFACIAL SURGEON: alert, oriented X 3 Considered stroke alert: no Skin: dry, intact Wound/incision: Location: abdomen Site Condition: edges approximated, incision in tact Psychiatry: normal affect, normal judgment/insig ht, normal mood Results Findings/Data: Laboratory Tests: 04/29 0515 Chemistry Sodium (134 - 147 mEq/L) 137 Potassium (3.4 - 5.0 mEq/L) 4.4 Chloride (100 - 108 mEq/L) 106 Carbon Dioxide (21 - 33 mEq/L) 23 Anion Gap (0 - 20) 12 BUN (7 - 18 mg/dL) 13 Creatinine (0.6 - 1.3 mg/dL) 0.6 Glomerular Filtr Rate (95 - 105) 108.1 H Glucose (70 - 110 mg/dL) 88 Calcium (8.0 - 10.5 mg/dL) 8.7 Hematology WBC (4.5 - 11.0 x10 3/uL) 9.38 RBC (3.54 - 5.02 x10 6/uL) 4.50 Hgb (11.0 - 15.0 g/dL) 12.9 Hct (33.0 - 45.0 %) 40.2 MCV (81.0 - 99.0 fL) 89.3 MCH (27.0 - 33.0 pg) 28.7 MCHC (33.0 - 37.0 g/dL) 32.1 L RDW (11.5 - 14.5 %) 12.3 Plt Count (150 - 400 x10 3/uL) 270 MPV (7.0 - 9.0 fL) 10.9 H Neut % (Auto) (56.0 - 77.0 %) 81.6 H Lymph % (Auto) (14.0 - 32.0 %) 13.4 L Moffat % (Auto) (4.8 - 9.0 %) 4.4 L Eos % (Auto) (0.3 - 3.7 %) 0.0 L Baso % (Auto) (0.0 - 2.0 %) 0.1 Neut # (Auto) (2.0 - 7.6 x10 3/uL) 7.65 H Lymph # (Auto) (1.0 - 3.8 x10 3/uL) 1.26 Moffat # (Auto) (0.1 - 0.8 x10 3/uL) 0.41 Eos # (Auto) (0.0 - 0.2 x10 3/uL) 0.00 Baso # (Auto) (0.0 - 0.2 x10 3/uL) 0.01 Abs Immat Gran (auto) (0.00 - 0.03 x10 3/uL) 0. 05 H Add Manual Diff NO Immature Gran % (0.0 - 2.0 %) 0.5 Nucleated RBC % (0 - 0 %) 0.0 Nucleated RBCs # (Man) (0.0 - 0.1 x10 3/uL) 0. 00 Results: labs reviewed, vital signs stable Discharge Instructions Diet: bariatric liquid diet (goal 60g protein 30 oz water), crush medications prior to ingestion, may swallow if tiny Activity: light duty, non-strenuous, DO NOT lift more than 10 to 15lbs for 2 weeks Wound/dressing care: Keep wound clean and dry, O K to shower tomorrow Equipment/supplies: wear abdominal binde r daily while awake and active okay to remove to shower and sleep Additional instructions: monitor blood pressure daily may take BP medications if reading above 150 systolic Follow-up Appointments PCP: PCP: Michael Amaral MD Attending Physician: Attending Physician: Julian Dasilva MD Follow up: 1 week Julian Dasilva 05/08/19 1310: Attestations Physician Attestation Reviewed findings plan: Reviewed the findings and plan as documented Electronically Signed by Padmini Del Real on at 1428 Electronically Signed by Julian Dasilva MD on 9 at 1313 RPT #:[id number] END OF REPORT 2019-04-28 17:25:00-00:00 [id number] [place] [address] PATIENT NAME: JACKLYN GOLDSMITH ADMIT DATE: ACCOUNT NO: [id number] ROOM NO: [facility] [place] AGE: 43 REPORT TYPE: OPERATIVE REPORT SEX: F ADMITTING PHYSICIAN:Julian Dasilva MD ATTENDING PHYSICIAN:Julian Dasilva MD OPERATION DATE: 04/28/2019 PREOPERATIVE DIAGNOSES: 1. Hypertension. 2. Hyperlipidemia. 3. Morbid obesity, body mass index greater than 40. 4. Hiatal hernia. POSTOPERATIVE DIAGNOSES: 1. Hypertension. 2. Hyperlipidemia. 3. Morbid obesity, body mass index greater than 40. 4. Hiatal hernia. OPERATIONS: 1. Laparoscopic sleeve resection with intraopera tive esophagogastroduodenoscopy. 2. Laparoscopic hiatal hernia repair. SURGEON: Julian Dasilva MD REGIONAL EHS MANAGER: 1. EDMUND Oro 2. FARSHAD Maloney ANESTHESIA: General. INTRAVENOUS FLUIDS: Crystalloid. BLOOD LOSS: Less than 30 mL. URINE OUTPUT: Not measured BRIEF HISTORY: This is a pleasant lady who compl eted bariatric program. I recommended a sleeve gastrec valdemar with intraoperative EGD. Risks and benefits of procedure were discussed. Informed consent was o btained. The patient was preoped for surgery. PROCEDURE IN DETAIL: The pat ient was transferred to the operating room and laid in the supine position. The patient was sedated and intubated. Perioperative antibiotic, body warmer, and SCD were us ed. The patient was prepped and draped in sterile surgical fashion. I put three 5 mm, a 12-mm, and a liver retractor, all under direct visualization. I identi fied the stomach, I measured 6 cm from PATIENT NAME: JACKLYN GOLDSMITH [place] [id number] the pylorus. I then divided the greater omentum, off the greater curvature of the stomach using the LigaSure. Once I got down the short gastric, I too k down the short gastric and dissected out phrenoesophageal membrane. The patient had w eakness in the area and small hiatal hernia. This was preo ped and the stomach and esophagus were removed away from this area of hiatal hernia. I then repair t he hiatus with 2 interupted zero ethibond. I then proceed to the sleeve james ectomy. I measure 6cm from pylorus and divide the greater omentum off the s tomach. I divide short gastric using ligature. I then put a 42F boggie in and divide the stomach along the bogie. Two green, two gold and one chai e was used. I then did an EGD and no leak was identified. The resected sto mach is removed. No bleeding was seen. FLuid and air was suck out. I then juliet sed the fascia using interrupted 0 Vicryl. Pneumoperitoneum was desuf flated and trocars were removed. Skin was closed with 4-0 Monocryl. Derm abond was applied. The patient tolerated the procedure well and was act ually extubated and transferred to recovery room for further care. Dictated By: Julian Dasilva MD WT: OP:INDER/LORELEI/TIFFANIE Conf#: [id number]/DID#: [id number] Authenticated and Edited by Julian Dasilva MD On 8:42:03 AM Electronically Signed by Julian Dasilva MD on at 0843 PATIENT NAME: JACKLYN GOLDSMITH [place] [id number] 2019-04-27 16:49:00-00:00 [id number] [place] [address] PATIENT NAME: JACKLYN GOLDSMITH [place] ADMIT DATE: ACCOUNT NO: [id number] ROOM NO: [facility] AGE: 43 REPORT TYPE: eELECTROCARDIOGRAM REPORT SEX: F ADMITTING PHYSICIAN:Julian Dasilva MD ATTENDING PHYSICIAN:Julian Dasilva MD Order: [id number] Test Reason : PREOP Test Date/Time Stamp: SatApr 27 2019 16:49:38 Blood Pressure : / mmHG Vent. Rate : 083 BPM Atrial Rate : 083 BPM P-R Int : 150 ms QRS Dur : 088 ms QT Int : 402 ms P-R-T Axes : 011 030 063 degree s QTc Int : 472 ms Normal sinus rhythm Nonspecific ST abnormality Abnormal ECG No previous ECGs available Confirmed by GRICELDA CLIFFORD ([id number]) on 04/28/20 10:25:47 AM Referred By: Julian Dasilva Confirmed by:GRICELDA Alexander at 1026 PATIENT NAME: JACKLYN GOLDSMITH [place] [id number]
[2022-12-11] MEDS ORDERED: LEVALBUTEROL 1.25 MG/3 ML NEB ONE (17:16)
[2022-12-11 17:29] LABS: Hematocrit 43.8 % (36.0-45.0); Lymphocytes % 37.9 % (15.3-44.8); MCV 90.3 fL (80-100); MPV 7.8 fL (7.6-11.3); RBC Red Blood Cell Count 4.86 M/uL (3.86-4.86)
[2022-12-11 17:33] LABS: Protime INR 0.93
[2022-12-11 17:47] LABS: BUN Blood Urea Nitrogen 17 mg/dL (7-18); Bicarbonate 27 mEq/L (21-32); Glomerular Filtration Rate 107 ml/min (=/>90); Glucose Level 88 mg/dL (74-106); NT PRO-BNP 40 pg/mL (<125); Potassium 3.9 mEq/L (3.5-5.1); Sodium Level 136 mEq/L (136-145)
[2022-12-11 17:49] LABS: Troponin High Sensitivity < 3.0 pg/mL (<58.9)
--- NOTE | 2022-12-11 18:20 | RAD REPORT ---
EXAM DESCRIPTION: Román Gonzalez (2 Views)12/11/2022 4:58 pm CLINICAL HISTORY: Chest pain COMPARISON: 2020 FINDINGS: The lungs appear clear of acute infiltrate. The heart is normal size IMPRESSION: No acute abnormalities displayed
--- NOTE | 2022-12-11 18:37 | RAD REPORT ---
EXAM DESCRIPTION: CT - Chest For Pe Angio - 12/11/2022 6:08 pm CLINICAL HISTORY: Chest pain COMPARISON: None. TECHNIQUE: Dynamically enhanced axial 3 mm thick images of the chest were obtained during administra tion of 100 mL Isovue 370 IV contrast. Coronal and oblique reconstruction images were generated and r eviewed. Exam utilizes a protocol for optimal evaluation of pulmonary arterial tree. Maximum intensity projections 3D imaging was utilized All CT scans are performed using dose optimization technique as appropriate and may include automated exposure control or mA/KV adjustment according to patient size. FINDINGS: A pulmonary embolus is not seen. A thoracic aortic aneurysm is not noted. A pleural effusion is not seen. A pericardial effusion is not seen. A lung consolidation is not present. IMPRESSION: Negative for a pulmonary embolism.
--- NOTE | 2022-12-11 18:47 | EDPHYS ---
Physician Documentation [facility] Name: Shira Goldsmith Age: 47 yrs Sex: Female : 1975 Arrival Date: 12/11/2022 Time: 16:24 Bed 5 Private MD: ED Physician Dom Dubon HPI: 12/11 16:44 This 47 yrs old Female presents to ER via Ambulatory with complaints of rn Breathing Difficulty. 16:44 The patient has shortness of breath at rest, with light activity. Onset: The rn symptoms/episode began/occurred 1 week(s) ago. Duration: The symptoms are intermittent. The patient's shortness of breath is aggravated by exertion, light activity. Associated signs and symptoms: Pertinent positives: non-productive cough, Pertinent negatives: hemoptysis, loss of consciousness. Severity of symptoms: At their worst the symptoms were mild in the emergency department the symptoms are unchanged. The patient has not experienced similar symptoms in the past. The patient has been recently seen by a physician:. Pt reports sob for 1 week, just completed abx and steroids 1 week ago after began with cough. Reports sob got worse recently and still feels ill. No hx of dvt/PE. No chest trauma. feels like can't "get enough air". . Historical: - Allergies: 16:38 Vancomycin; cm10 - PMHx: 16:38 Anxiety; High Cholesterol; Hyperlipidemia; Ovarian cyst; Stomach Ulcers; cm10 - PSHx: 16:38 Total abdominal hysterectomy; cm10 - Immunization history:: Adult Immunizations unknown. - Social history:: Smoking status: unknown. - Family history:: not pertinent. - Hospitalizations: : No recent hospitalization is reported. ROS: 16:57 Constitutional: Negative for fever, chills, and weight loss, Eyes: Negative for injury, rn pain, redness, and discharge, Neck: Negative for injury, pain, and swelling, Cardiovascular: Negative for chest pain, palpitations, and edema, Respiratory: + cough and sob Abdomen/GI: Negative for abdominal pain, nausea, vomiting, diarrhea, and constipation, Back: Negative for injury and pain, MS/Extremity: Negative for injury and deformity, Skin: Negative for injury, rash, and discoloration, Neuro: + generalized weakness Exam: 16:57 Constitutional: This is a well developed, well nourished patient who is awake, alert, rn and in no acute distress. Head/Face: Normocephalic, atraumatic. ENT: NO stridor Cardiovascular: Regular rate and rhythm. No pulse deficits. Respiratory: No increased work of breathing, no retractions or nasal flaring. Speaking full sentences, unlabored. Skin: Warm, dry Neuro: Awake and alert, GCS 15 Vital Signs: 16:39 BP 144 / 91; Pulse 81; Resp 18; Temp 99; Pulse Ox 100% ; Weight 84.37 kg; Height 4 ft. cm10 11 in. ; 17:00 BP 140 / 82; Pulse 77; Resp 16 S; Pulse Ox 98% on R/A; aa5 18:30 BP 139 / 78; Pulse 77; Resp 18 S; Pulse Ox 98% on R/A; aa5 16:39 Body Mass Index 37.57 (84.37 kg, 149.86 cm) cm10 MDM: 16:29 Patient medically screened. rn 18:05 Differential diagnosis: Anemia Anxiety Reaction asthma, Pulmonary Embolism. snw 18:55 Antibiotic administration: Not indicated. Data interpreted: Pulse oximetry: on room air snw is 98 %. Interpretation: normal. Data reviewed: vital signs, nurses notes, lab test result(s), radiologic studies. Counseling: I had a detailed discussion with the patient and/or guardian regarding: the historical points, exam findings, and any diagnostic results supporting the discharge/admit diagnosis, the presence of at least one elevated blood pressure reading (>120/80) during this emergency department visit, lab results, radiology results, the need for outpatient follow up, for definitive care. Response to treatment: neb tx helped minimally but did help per pt report, will give steroids and inhaler upon discharge. Special discussion: Based on the patient's history, exam, and Dx evaluation, there is no indication for emergent intervention or inpatient Tx. It is understood by the patient/guardian that if the Sx's persist or worsen they need to return immediately for re-evaluation. I have referred the patient to see his PCP for further evaluation of high blood pressure. Based on the history and exam findings, there is no indication for further emergent testing or inpatient evaluation. I discussed with the patient/guardian the need to see the primary care provider for further evaluation of the symptoms. 12/11 16:36 Order name: BMP; Complete Time: 17:53 rn 12/11 16:36 Order name: Blood Culture Adult (2) rn 12/11 16:36 Order name: CBC with Diff; Complete Time: 17:53 rn 12/11 16:36 Order name: NT PRO-BNP; Complete Time: 17:53 rn 12/11 16:36 Order name: PT-INR; Complete Time: 17:53 rn 12/11 16:36 Order name: Ptt, Activated; Complete Time: 17:53 rn 12/11 16:36 Order name: Troponin HS; Complete Time: 17:53 rn 12/11 16:29 Order name: XRAY Chest Pa And Lat (2 Views); Complete Time: 18:24 rn 12/11 16:36 Order name: CT Chest For PE Angio; Complete Time: 18:38 rn 12/11 16:36 Order name: EKG; Complete Time: 16:37 rn 12/11 16:36 Order name: Cardiac monitoring; Complete Time: 17:06 rn 12/11 16:36 Order name: EKG - Nurse/Tech; Complete Time: 17:18 rn 12/11 16:36 Order name: IV Saline Lock; Complete Time: 17:18 rn 12/11 16:36 Order name: Labs collected and sent; Complete Time: 17:18 rn 12/11 16:36 Order name: O2 Per Protocol; Complete Time: 17:06 rn 12/11 16:36 Order name: O2 Sat Monitoring; Complete Time: 17:06 rn Administered Medications: 17:23 Drug: Levalbuterol Inhalation 1.25 mg Route: Inhalation; aa5 17:48 Follow up: Response: No adverse reaction; No change in condition aa5 18:57 Drug: Decadron - Dexamethasone IVP 10 mg Route: IVP; Site: right forearm; aa5 19:20 Follow up: Response: No adverse reaction aa5 Disposition: 12/12 07:13 Co-signature as Attending Physician, Dom Dubon MD I reviewed the patient's care rn provided by the Advanced Practice Provider and agree with the diagnosis and treatment plan. Disposition Summary: 12/11/22 18:47 Discharge Ordered Location: Home snw Condition: Stable snw Diagnosis - Chest pain, unspecified snw - Dyspnea, unspecified snw - Postviral fatigue syndrome snw Followup: snw - With: Emergency Department - When: As needed - Reason: Worsening of condition Followup: snw - With: Private Physician - When: 2 - 3 days - Reason: Recheck today's complaints, Continuance of care, Re-evaluation by your physician Discharge Instructions: - Discharge Summary Sheet snw - Allergies, Adult snw - Nonspecific Chest Pain, Adult snw - Shortness of Breath, Adult snw - Fatigue snw Forms: - Work release form snw - Medication Reconciliation Form snw - Thank You Letter snw - Antibiotic Education snw - Prescription Opioid Use snw - Patient Portal Instructions snw Prescriptions: - albuterol sulfate 90 mcg/actuation Inhalation HFA Aerosol Inhaler - inhale 2 puff by INHALATION route 6 times per day as needed for shortness of snw breath or wheezing; 1 unit; Refills: 0, Product Selection Permitted - Pepcid 20 mg Oral Tablet - take 1 tablet by ORAL route once daily for 21 days; 21 tablet; Refills: 0, snw Product Selection Permitted - Zyrtec 10 mg Oral Tablet - take 1 tablet by ORAL route once daily As needed; 20 tablet; Refills: 0, snw Product Selection Permitted - Prednisone 20 mg Oral Tablet - take 2 tablets by ORAL route once daily for 5 days; 10 tablet; Refills: 0, snw Product Selection Permitted Signatures: Dispatcher [employer] Abby Vigil, PRODUCT DEVELOPMENT ECOLOGIST-C PRODUCT DEVELOPMENT ECOLOGIST-Csnw Dom Dubon MD MD rn Calderon, Audri RN RN aa5 Kathy Nicholas RN RN cm10
--- NOTE | 2022-12-11 18:47 | ER ---
Nurse's Notes [facility] Name: Shira Goldsmith Age: 47 yrs Sex: Female : 1975 Arrival Date: 12/11/2022 Time: 16:24 Bed 5 Private MD: Diagnosis: Chest pain, unspecified;Dyspnea, unspecified;Postviral fatigue syndrome Presentation: 12/11 16:39 Chief complaint: Patient states: chest pain and shortness of breath. Pt was recently cm10 diagnosed with pneumonia and completed a round of ABX and steroids. Pt states that she feels like she can't take a deep breath. Coronavirus screen: Client denies travel out of the [place] in the last 14 days. Ebola Screen: No symptoms or risks identified at this time. Initial Sepsis Screen: Does the patient meet any 2 criteria? No. Patient's initial sepsis screen is negative. Does the patient have a suspected source of infection? No. Patient's initial sepsis screen is negative. Risk Assessment: Do you want to hurt yourself or someone else? Patient reports no desire to harm self or others. Onset of symptoms was December 11, 2022. 16:39 Method Of Arrival: Ambulatory 10 16:39 Acuity: IMELDA 3 cm10 Historical: - Allergies: 16:38 Vancomycin; cm10 - PMHx: 16:38 Anxiety; High Cholesterol; Hyperlipidemia; Ovarian cyst; Stomach Ulcers; cm10 - PSHx: 16:38 Total abdominal hysterectomy; cm10 - Immunization history:: Adult Immunizations unknown. - Social history:: Smoking status: unknown. - Family history:: not pertinent. - Hospitalizations: : No recent hospitalization is reported. Screenin:45 [facility] ED Fall Risk Assessment (Adult) History of falling in the last 3 months, aa5 including since admission No falls in past 3 months (0 pts) Confusion or Disorientation No (0 pts) Intoxicated or Sedated No (0 pts) Impaired Gait No (0 pts) Mobility Assist Device Used No (0 pt) Altered Elimination No (0 pt) Score/Fall Risk Level 0 - 2 = Low Risk Oriented to surroundings, Maintained a safe environment, Educated pt \T\ family on fall prevention, incl call for assistance when getting out of bed. Abuse screen: Denies threats or abuse. Nutritional screening: No deficits noted. Tuberculosis screening: No symptoms or risk factors identified. Assessment: 16:45 General: Appears comfortable, Behavior is calm, cooperative. Pain: Complains of pain in aa5 chest Pain currently is 5 out of 10 on a pain scale. Quality of pain is described as aching, Is intermittent. Neuro: Level of Consciousness is awake, alert, obeys commands, Oriented to person, place, time, situation. Cardiovascular: Heart tones S1 S2 present Rhythm is regular. Respiratory: Reports shortness of breath on exertion cough that is non-productive, Airway is patent Respiratory effort is even, unlabored, Respiratory pattern is regular, symmetrical, Breath sounds are clear bilaterally. GI: Abdomen is round non-distended, Bowel sounds present X 4 quads. Abd is soft and non tender X 4 quads. : No signs and/or symptoms were reported regarding the genitourinary system. EENT: No signs and/or symptoms were reported regarding the EENT system. Derm: Skin is pink, warm \T\ dry. Musculoskeletal: Range of motion: intact in all extremities. 17:56 Reassessment: Pt to CT via wheelchair. . aa5 18:30 Reassessment: Patient is alert, oriented x 3, equal unlabored respirations, skin aa5 warm/dry/pink. 19:20 Reassessment: Patient is alert, oriented x 3, equal unlabored respirations, skin aa5 warm/dry/pink. Vital Signs: 16:39 BP 144 / 91; Pulse 81; Resp 18; Temp 99; Pulse Ox 100% ; Weight 84.37 kg; Height 4 ft. cm10 11 in. ; 17:00 BP 140 / 82; Pulse 77; Resp 16 S; Pulse Ox 98% on R/A; aa5 18:30 BP 139 / 78; Pulse 77; Resp 18 S; Pulse Ox 98% on R/A; aa5 16:39 Body Mass Index 37.57 (84.37 kg, 149.86 cm) cm10 ED Course: 16:28 Patient arrived in ED. mg5 16:28 Dom Dubon MD is Attending Physician. rn 16:40 Triage completed. cm10 16:40 Arm band placed on Patient placed in an exam room, on a stretcher. cm10 16:42 Rosa Elena Hicks, HARJINDER is Primary Nurse. aa5 16:45 Patient has correct armband on for positive identification. Placed in gown. Bed in low aa5 position. Call light in reach. Side rails up X2. Client placed on continuous cardiac and pulse oximetry monitoring. NIBP monitoring applied. 16:57 XRAY Chest Pa And Lat (2 Views) In Process Unspecified. EDMS 17:10 Inserted saline lock: 20 gauge in right forearm, using aseptic technique. Blood aa5 collected. 17:11 Initial lab(s) drawn, by me, sent to lab. First set of blood cultures drawn by me. aa5 17:48 Second set of blood cultures drawn by me. aa5 17:53 Abby Hdz FNP-C is PHCP. snw 18:09 CT Chest For PE Angio In Process Unspecified. EDMS 19:15 No provider procedures requiring assistance completed. IV discontinued, intact, aa5 bleeding controlled, No redness/swelling at site. Pressure dressing applied. Administered Medications: 17:23 Drug: Levalbuterol Inhalation 1.25 mg Route: Inhalation; aa5 17:48 Follow up: Response: No adverse reaction; No change in condition aa5 18:57 Drug: Decadron - Dexamethasone IVP 10 mg Route: IVP; Site: right forearm; aa5 19:20 Follow up: Response: No adverse reaction aa5 Medication: 19:15 VIS not applicable for this client. aa5 Outcome: 18:47 Discharge ordered by . snw 19:20 Discharged to home ambulatory. aa5 19:20 Condition: stable 19:20 Discharge instructions given to patient, Instructed on discharge instructions, follow up and referral plans. medication usage, Demonstrated understanding of instructions, follow-up care, medications, Prescriptions given X 4. 19:25 Patient left the ED. aa5 Signatures: Dispatcher [employer] EDAL Abby Hdz FNP-C HEARING AID DISPENSER-Csnw Dom Dubon MD MD rn Calderon, Audri RN RN aa5 Kathy Nicholas RN RN Carolina Manzo mg5
[2022-12-11] MEDS ORDERED: dexAMETHasone 10 MG/ML VIAL ONE (19:06)
[2022-12-11 19:35] VITALS: TEMP 99
[2022-12-11 19:49] VITALS: O2SAT 98
[2022-12-11 19:50] VITALS: BP 139/78
--- NOTE | 2022-12-12 17:35 | EKG ---
Test Date: 2022-12-11 Test Time: 17:08:16 Debate Director: SHAILESH MEASUREMENT RESULTS: Intervals: Rate: 133 RI: 126 QRSD: 90 QT: 288 QTc: 428 [place]: P: 56 RI: 126 QRS: 91 T: 49 INTERPRETIVE STATEMENTS: Sinus tachycardia Otherwise normal ECG Compared to ECG 06/17/2020 19:12:24 Sinus rhythm no longer present Myocardial infarct finding no longer present Electronically Signed On 12-12-22 17:31:51 CDT by Luis Angel Briscoe
--- NOTE | 2022-12-12 17:35 | EKG ---
Test Date: 2022-12-11 Test Time: 17:18:01 Roving Winder: SHAILESH MEASUREMENT RESULTS: Intervals: Rate: 67 WI: 134 QRSD: 88 QT: 404 QTc: 426 [place]: P: 6 WI: 134 QRS: 51 T: 70 INTERPRETIVE STATEMENTS: Normal sinus rhythm Normal ECG Compared to ECG 12/11/2022 17:08:16 Sinus tachycardia no longer present Electronically Signed On 12-12-22 17:31:47 CDT by Luis Angel Briscoe
== END 2022-12-11 19:25 | disposition home or self-care (01) ==
LOC: ER 16:24
DX: R07.9 Chest pain, unspecified (principal); R06.00 Dyspnea, unspecified; G93.31 Postviral fatigue syndrome; Z88.3 Allergy status to other anti-infective agents
CPT/HCPCS: 87040 ×2; 85025; 80048; 36415; 85610; 85730; 84484; 83880; 71275; 71046; Q9967; J7614; J1100; 93005

== ENCOUNTER 2023-12-15 17:23 | Emergency (ER) | payer BC ==
[2023-12-15] MEDS ORDERED: LIDOCAINE 1% MPF 5 ML VIAL ONE (17:41)
[2023-12-15] MEDS ORDERED: HYDROCODONE/APAP 7.5/325 MG TAB ONE (17:42)
[2023-12-15] MEDS ORDERED: TDAP (DIPHTH,PERTUSS(ACELL),TET VAC) 0.5 ML VIAL IMVAC ONE (17:42)
--- NOTE | 2023-12-15 18:51 | ER ---
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 Bleeding ll1 controlled with dressing in place. Coronavirus screen: Client denies travel out of the [place] in the last 14 days. At this time, the client does not indicate any symptoms associated with coronavirus-19. Ebola Screen: Patient denies travel to an Ebola-affected area in the 21 days before illness onset. Initial Sepsis Screen: Does the patient meet any 2 criteria? No. Patient's initial sepsis screen is negative. Does the patient have a suspected source of infection? No. Patient's initial sepsis screen is negative. Risk Assessment: Do you want to hurt yourself or someone else? Patient reports no desire to harm self or others. Onset of symptoms was December 15, 2023. 17:35 Method Of Arrival: Ambulatory ll1 17:35 Acuity: IMELDA 4 ll1 Triage Assessment: 17:37 General: Appears uncomfortable, Behavior is calm, cooperative, appropriate for age. ll1 Pain: Complains of pain in right foot Pain currently is 8 out of 10 on a pain scale. Quality of pain is described as aching, throbbing. Derm: Reports laceration bottom of R foot 1st digit area. Musculoskeletal: Circulation, motion, and sensation intact. Capillary refill < 3 seconds. 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 - Infectious Disease History:: Denies. - Social history:: Smoking status: Patient denies any tobacco usage or history of. Screenin:34 [facility] ED Fall Risk Assessment (Adult) History of falling in the last 3 months, ll1 including since admission No falls in past 3 months (0 pts) Confusion or Disorientation No (0 pts) Intoxicated or Sedated No (0 pts) Impaired Gait No (0 pts) Mobility Assist Device Used No (0 pt) Altered Elimination No (0 pt) Score/Fall Risk Level 0 - 2 = Low Risk Maintained a safe environment, Hourly rounding (assess needs \T\ fall precautionary measures) done. Abuse screen: Denies threats or abuse. Nutritional screening: No deficits noted. Tuberculosis screening: No symptoms or risk factors identified. Assessment: 17:48 Reassessment: No changes from previously documented assessment. Patient and/or family ll1 updated on plan of care and expected duration. Pain level reassessed. Patient is alert, oriented x 3, equal unlabored respirations, skin warm/dry/pink. Vital Signs: 17:35 BP 142 / 66; Pulse 65; Resp 16; Temp 97.6; Pulse Ox 98% ; Weight 81.65 kg; Height 4 ft. ll1 11 in. ; Pain 8/10; 18:53 BP 138 / 64; Pulse 72; Resp 15; Temp 98.1; Pulse Ox 98% ; me1 17:35 Body Mass Index 36.36 (81.65 kg, 149.86 cm) ll1 17:35 Pain Scale: Adult ll1 ED Course: 17:25 Patient arrived in ED. gm2 17:25 Viviana Montoya PA-C is PHCP. sb4 17:25 Daljit Boyd MD is Attending Physician. sb4 17:29 Arm band placed on Patient placed in an exam room, on a stretcher. ll1 17:37 Triage completed. ll1 18:01 Foot Right 3 View XRAY In Process Unspecified. EDMS 18:34 Patient has correct armband on for positive identification. Bed in low position. ll1 Provided Education on: ER procedures and process. Cardiac monitoring not applicable on this patient. 18:52 Julia Horton, HARJINDER is Primary Nurse. me1 19:04 No provider procedures requiring assistance completed. Patient did not have IV access me1 during this emergency room visit. Administered Medications: 17:48 Drug: Boostrix Tdap IM 0.5 ml IM once; as a single dose Route: IM; Site: left deltoid; ll1 18:53 Follow up: Response: No adverse reaction me1 17:48 Drug: Hydrocodone-Acetaminophen PO (7.5 mg-325 mg) 1 tabs PO once {Note: RASS 0, pain ll1 12/20.} Route: PO; 18:53 Follow up: Response: No adverse reaction; Pain is decreased me1 18:35 Drug: Lidocaine Infiltration (1 %) 5 ml 5 ml Infiltration once; to bedside {Note: me1 Administered by PA. Mikie} Volume: 5 ml; Route: Infiltration; 18:53 Follow up: Response: No adverse reaction; Pain is decreased me1 Medication: 18:35 Vaccine Information Statement (VIS) provided today. Questions and/or concerns ll1 addressed. VIS edition date: December 16, 2022. Outcome: 18:51 Discharge ordered by . sb4 19:04 Discharged to home ambulatory, with significant other, me1 19:04 Condition: stable 19:04 Discharge instructions given to patient, significant other, Instructed on discharge instructions, follow up and referral plans. medication usage, Demonstrated understanding of instructions, follow-up care, medications, Prescriptions given X 1, 19:05 Patient left the ED. me1 Signatures: Dispatcher [employer] EDMiky Linares RN RN ll1 Viviana Montoya, PA-C PA-C sb4 Julia Horton RN RN me1 Miryam Flores 2 Corrections: (The following items were deleted from the chart) 18:35 18:34 VIS not applicable for this client. ll1 ll1
--- NOTE | 2023-12-15 18:52 | RAD REPORT ---
EXAM DESCRIPTION: RAD - Foot Right 3 View - 12/15/2023 5:59 pm CLINICAL HISTORY: laceration big toe COMPARISON: FOOT AP LAT dated 09/26/2007; FOOT AP LAT dated 09/26/2007 TECHNIQUE: Right foot, 3 views. FINDINGS: No fracture, dislocation or periosteal reaction. No air or foreign body in the soft tissues. IMPRESSION: Negative right foot examination.
--- NOTE | 2023-12-15 18:52 | EDPHYS ---
Physician Documentation [facility] Name: Shira Goldsmith Age: 48 yrs Sex: Female : 1975 Arrival Date: 12/15/2023 Time: 17:23 Bed 10 Private MD: ED Physician Daljit Boyd HPI: 12/14 17:41 This 48 yrs old Female presents to ER via Ambulatory with complaints of Toe sb4 Injury. 17:41 The patient has a laceration occurred outdoors, and there are no complicating factors. sb4 The injury was accidental. The laceration(s) is(are) located on the plantar aspect of right first toe. Onset: The symptoms/episode began/occurred just prior to arrival. Associated signs and symptoms: The patient has no apparent associated signs or symptoms. The patient has not experienced similar symptoms in the past. The patient has not recently seen a physician. 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 - Infectious Disease History:: Denies. - Social history:: Smoking status: Patient denies any tobacco usage or history of. ROS: 17:41 Constitutional: Negative for fever, chills, and weight loss, sb4 17:41 Skin: Positive for laceration(s), 17:41 All other systems are negative, Exam: 17:41 Constitutional: This is a well developed, well nourished patient who is awake, alert, sb4 and in no acute distress. Head/Face: Normocephalic, atraumatic. Eyes: Extra-ocular motions intact. Periorbital areas with no swelling, redness, or edema. ENT: Mucous membranes moist. MS/ Extremity: Pulses equal, no cyanosis. Neurovascular intact. Full, normal range of motion. Neuro: Awake and alert, GCS 15, oriented to person, place, time, and situation. Motor strength 5/5 in all extremities. Sensory grossly intact. 17:41 Skin: injury, laceration(s), the wound is approximately 3 cm(s), with a depth of 1 cm(s), of the plantar aspect of right first toe, that can be described as clean, no foreign body, irregular, without bleeding, Vital Signs: 17:35 BP 142 / 66; Pulse 65; Resp 16; Temp 97.6; Pulse Ox 98% ; Weight 81.65 kg; Height 4 ft. ll1 11 in. ; Pain 8/10; 18:53 BP 138 / 64; Pulse 72; Resp 15; Temp 98.1; Pulse Ox 98% ; me1 17:35 Body Mass Index 36.36 (81.65 kg, 149.86 cm) ll1 17:35 Pain Scale: Adult ll1 Laceration: 18:52 Wound Repair of 4cm ( 1.6in ) subcutaneous laceration to plantar aspect of right first sb4 toe. Distal neuro/vascular/tendon intact. Anesthesia: Local anesthetic administered with 4 mls of 1% lidocaine. Wound prep: Moderate cleansing with betadine by me, Wound irrigation, Wound explored, Copious irrigation. Skin closed with 5 4-0 Prolene using simple sutures and sterile technique. Dressed with Kerlix. Patient tolerated well. MDM: 17:29 Patient medically screened. sb4 18:53 Data reviewed: vital signs, nurses notes, radiologic studies, and as a result, I will sb4 discharge patient. Counseling: I had a detailed discussion with the patient and/or guardian regarding the historical points, exam findings, and any diagnostic results supporting the discharge/admit diagnosis, radiology results, the need for outpatient follow up, for suture removal in 10 days, to return to the emergency department if symptoms worsen or persist or if there are any questions or concerns that arise at home. 08 17:39 Order name: Foot Right 3 View XRAY; Complete Time: 18:52 sb4 04 17:39 Order name: Wound Care; Complete Time: 18:53 sb4 04 18:51 Order name: Dressing - Wound; Complete Time: 18:53 sb4 Administered Medications: 17:48 Drug: Boostrix Tdap IM 0.5 ml IM once; as a single dose Route: IM; Site: left deltoid; ll1 18:53 Follow up: Response: No adverse reaction me1 17:48 Drug: Hydrocodone-Acetaminophen PO (7.5 mg-325 mg) 1 tabs PO once {Note: RASS 0, pain ll1 8/10.} Route: PO; 18:53 Follow up: Response: No adverse reaction; Pain is decreased me1 18:35 Drug: Lidocaine Infiltration (1 %) 5 ml 5 ml Infiltration once; to bedside {Note: me1 Administered by PA. Mikie} Volume: 5 ml; Route: Infiltration; 18:53 Follow up: Response: No adverse reaction; Pain is decreased me1 Disposition Summary: 12/15/23 18:51 Discharge Ordered Notes: Location: Home sb4 Problem: new sb4 Symptoms: have improved sb4 Condition: Stable sb4 Diagnosis - Laceration without foreign body of right great toe without damage to nail sb4 Followup: sb4 - With: Private Physician - When: 7 - 10 days - Reason: Staple/Suture removal Discharge Instructions: - Discharge Summary Sheet sb4 - Laceration Care, Adult, [id number] sb4 Forms: - Prescription Opioid Use sb4 - Patient Portal Instructions sb4 - Leadership Thank You Letter sb4 Prescriptions: - Tramadol 50 mg Oral Tablet - take 1 tablet ORAL route every 8 hours as needed; 12 tablet; Refills: 0, sb4 Product Selection Permitted Signatures: Dispatcher [employer] EDMiky Linares RN RN ll1 Viviana Montoya PA-C PA-C sb4 Julia Horton RN RN me1
[2023-12-15 23:44] VITALS: O2SAT 98
[2023-12-15 23:45] VITALS: BP 138/64; TEMP 98.1
== END 2023-12-15 19:05 | disposition home or self-care (01) ==
LOC: ER 17:23
PROC: 0HQMXZZ Repair Right Foot Skin, External Approach (ICD-10-PCS; principal; 2023-12-15)
DX: S91.111A Laceration without foreign body of right great toe without damage to nail, initial encounter (principal)
CPT/HCPCS: 73630; 12002; J2001; 96372; 99284

== ENCOUNTER 2024-08-14 07:53 | Day surgery (SDC) | payer BC ==
[2024-08-10 16:24] LABS: Absolute Basophils 0.1 K/uL (0-0.5); Absolute Eosinophils 0.1 K/uL (0-0.5); Absolute Lymphocytes (CBC) 3.4 K/uL (0.7-4.9); Absolute Monocytes 0.5 K/uL (0.1-1.3); Absolute Neutrophil 4.7 K/uL (1.8-8.0); Basophils % 0.8 % (0-1.3); Eosinophils % 1.1 % (0-4.4); Hematocrit 43.2 % (36.0-45.0); Hemoglobin 14.2 g/dL (12.0-15.0); Lymphocytes % 38.8 % (15.3-44.8); MCH 29.8 pg (27.0-35.0); MCHC 32.9 g/dL (32.0-36.0); MCV 90.6 fL (80-100); MPV 8.6 fL (7.6-11.3); Monocytes % 5.5 % (3.3-12.3); Neutrophils % 53.8 % (41.7-73.7); Nucleated Red Blood Cells % 0.1 % (0-0); Platelets 290 thou/uL (152-406); RBC Red Blood Cell Count 4.77 M/uL (3.86-4.86); Red Cell Distribution Width 12.6 % (12.1-15.2)
[2024-08-10 16:30] LABS: Anion Gap 8.7 mEq/L (5.0-15.0); Potassium 3.7 mEq/L (3.5-5.1)
--- NOTE | 2024-08-11 12:19 | EKG ---
Test Date: 2024-08-10 Test Time: 16:08:34 Clinical Medical Assistant: JACK MEASUREMENT RESULTS: Intervals: Rate: 71 MN: 148 QRSD: 90 QT: 406 QTc: 441 [place]: P: -18 MN: 148 QRS: 38 T: 70 INTERPRETIVE STATEMENTS: Normal sinus rhythm Normal ECG Compared to ECG 12/11/2022 17:18:01 No significant changes Electronically Signed On 08-11-24 12:18:21 CDT by Tu Guzman
[2024-08-14] MEDS ORDERED: Ringers Lactate 1,000 ML IV ONE (08:53)
[2024-08-14] MEDS: OXYMETAZOLINE HCL 0.05% 30ML NAS ONE (09:47)
[2024-08-14] MEDS ORDERED: LIDOCAINE HCL/EPINEPHRINE 20 ML MDV ONE (10:30)
[2024-08-14] MEDS ORDERED: EPINEPHRINE 1 MG/ML VIAL ONE (10:30)
[2024-08-14] MEDS ORDERED: dexAMETHasone 10 MG/ML VIAL ONE (10:37)
[2024-08-14] MEDS ORDERED: MIDAZOLAM HCL 2 MG/2 ML INJ ONE (10:37)
[2024-08-14] MEDS ORDERED: ONDANSETRON 4 MG/2 ML VIAL ONE (10:37)
[2024-08-14] MEDS ORDERED: propofoL 200 MG/20 ML VIAL IV ONE (10:37)
[2024-08-14] MEDS ORDERED: FENTANYL CITR 100 MCG/2 ML ONE (10:37)
[2024-08-14] MEDS ORDERED: LIDOCAINE 1% MPF 5 ML VIAL ONE (10:37)
[2024-08-14] MEDS ORDERED: ROCURONIUM 50 MG/5 ML VIAL IV ONE (10:37)
[2024-08-14] MEDS: FENTANYL CITR 100 MCG/2 ML ONE (11:02)
[2024-08-14] MEDS ORDERED: GLYCOPYRROLATE 0.2 MG/ML SYR ONE (11:15)
--- NOTE | 2024-08-14 11:37 | P.OP ---
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 The head of bed was turned 90 degrees. A brief exam under anesthesia was performed of the oral cavity based on patient's complaint. Using a tongue blade from the McIvor retractor the mouth was opened and the tongue was retracted inferiorly. The hard and soft palate were unremarkable. The oral pharynx demonstrated healed scar from remote tonsillectomy. On the left posterior pillar there was a 2 to 3 mm nodular round tissue whose appearance was consistent a small lymphoid rest. A small similar but less prominent area was noted on the right anterior tonsillar pillar. No procedure or biopsy was felt necessary. The 0 degree rigid endoscope was used to perform a nasal endoscopy and nasopharyngoscopy. The patient was noted to have mild right septal deviation but the inferior turbinates, middle turbinates, inferior meatus and middle meatus was unremarkable. The superior turbinate was not visualized. The sphenoethmoid recesses appeared clear from any evidence of mass, polyps, lesion or infection. The right and left eustachian tube openings appeared normal. Within the left fossa of Rosenmuller and along the roof of the left and midline nasopharynx there was a small amount of slightly irregular appearing tissue. Near the midline, within this area of tissue I noted a small superficial cyst which contained yellow mucus. Within the fossa of Rosenmuller there was a rounded slightly bluish appearance with suspicion for an underlying cyst. A straight Blakesley was used to grasp and rupture the cyst and thick mucoid fluid was suctioned. A 45 degree Harvey-Cut Blakesley was then used to obtain several small areas of tissue from this region including a portion of the cyst wall as well as the additional tissue more towards midline. The specimen was sent for permanent section only. Afrin-soaked pledgets were placed over the biopsy site and direct pressure was applied for several minutes. After removal the area appeared hemostatic and an additional postbiopsy image was obtained. The nasal cavity was thoroughly irrigated with copious amounts of sterile saline and after suctioning the biopsy site was reexamined and remained dry with no additional significant bleeding. The patient was then returned to care of anesthesia for awakening extubation in the operating room which proceeded without difficulty. The patient will be seen in follow-up to review the results of the biopsy and determine any additional treatments. Complications: None Implants: None Fluids & blood products: See anesthesia record Transferred to: Recovery Room Condition: Good
[2024-08-14] MEDS: KETOROLAC 30 MG/ML INJ ONE (12:08)
[2024-08-14 14:19] VITALS: O2SAT 100
[2024-08-14 14:47] VITALS: BP 114/63; TEMP 97.9
== END 2024-08-14 13:10 | disposition home or self-care (01) ==
LOC: OR 07:53
PROVIDERS: ATTEND Otolaryngology
PROC: 09BN8ZX Excision of Nasopharynx, Via Natural or Artificial Opening Endoscopic, Diagnostic (ICD-10-PCS; principal; 2024-08-14 09:45)
DX: D37.05 Neoplasm of uncertain behavior of pharynx (principal); J02.9 Acute pharyngitis, unspecified
CPT/HCPCS: 93005; 85025; 80048; 36415; 81025; 88305; 31237; J2704; J2003; J2250; J3010 ×2; J1100; J2405; J7120; J0171

== ENCOUNTER 2024-08-23 11:46 | Emergency (ER) | payer BC ==
[2024-08-23] MEDS ORDERED: NA CHLORIDE 0.9% 1,000 ML ONE ×2 (14:07→16:27)
[2024-08-23] MEDS ORDERED: METOCLOPRAMIDE 10 MG/2mL INJ ONE (14:07)
[2024-08-23] MEDS ORDERED: FAMOTIDINE 20 MG/2 ML VIAL IV ONE (14:07)
[2024-08-23] MEDS ORDERED: DIPHENHYDRAMINE 50 MG/ML VIAL ONE (14:07)
[2024-08-23 14:12] LABS: Absolute Lymphocytes (CBC) 0.7 K/uL (0.7-4.9); Absolute Monocytes 0.4 K/uL (0.1-1.3); Absolute Neutrophil 6.1 K/uL (1.8-8.0); Basophils % 0.4 % (0-1.3); Hematocrit 42.5 % (36.0-45.0); Hemoglobin 14.7 g/dL (12.0-15.0); Lymphocytes % 10.2 % (15.3-44.8); MCH 30.6 pg (27.0-35.0); MCHC 34.6 g/dL (32.0-36.0); MCV 88.5 fL (80-100); MPV 8.5 fL (7.6-11.3); Monocytes % 5.4 % (3.3-12.3); Platelets 216 thou/uL (152-406); RBC Red Blood Cell Count 4.81 M/uL (3.86-4.86)
[2024-08-23 14:19] LABS: Protime INR 1.15
[2024-08-23 14:29] LABS: Monoscreen NEG (NEG)
[2024-08-23 14:31] LABS: Influenza A Ag Negative; Influenza B Ag Negative; SARS-CoV-2 Antigen Rapid Res Negative (Negative)
[2024-08-23 14:33] LABS: ALT/SGPT 120 U/L (13-56); Albumin 3.4 g/dL (3.4-5.0); Albumin/Globulin Ratio 0.9 (1.1-1.8); Alkaline Phosphatase 135 U/L (45-117); BUN Blood Urea Nitrogen 8 mg/dL (7-18); Bicarbonate 26 mEq/L (21-32); Bilirubin Direct 0.2 mg/dL (0-0.2); Bilirubin Indirect, Calculated 0.5 mg/dL (0.2-0.8); Bilirubin Total 0.7 mg/dL (0.2-1.0); Glomerular Filtration Rate 102 ml/min (=/>90); Glucose Level 92 mg/dL (74-106); Lipase 32 U/L (13-75); Protein, Total 7.4 g/dL (6.4-8.2); Sodium Level 134 mEq/L (136-145)
[2024-08-23 14:34] LABS: AST/SGOT 88 U/L (15-37); Magnesium 1.7 mg/dL (1.6-2.4); Troponin High Sensitivity < 3.0 pg/mL (<58.9)
--- NOTE | 2024-08-23 14:54 | RAD REPORT ---
EXAMINATION: ONE VIEW CHEST XR CLINICAL INDICATION: Female, 48 years old.,vomiting TECHNIQUE: Frontal chest projection is submitted. Examination is limited by patient positioning and t echnique. COMPARISON: 12/11/2022 FINDINGS: The lungs are well inflated and clear. No pneumothorax or sizable effusion. The heart is normal in s ize. Mediastinal contours are unremarkable. IMPRESSION: No acute intrathoracic abnormalities.
--- NOTE | 2024-08-23 16:14 | RAD REPORT ---
EXAMINATION: CT Abdomen Pelvis W Contrast CLINICAL INDICATION: Female, 48 years old. Abd pain;Nausea / vomiting TECHNIQUE: CT abdomen and pelvis was performed, after the administration of IV contrast, as per [facility] protocol. Axial, sagittal and coronal reconstructions were obtained. One or more of the following dose reduction techniques were used: Automated exposure control, adjustment of the mA and k V according to patient size, and iterative reconstruction. Unless otherwise specified, incidental findings do not require dedicated imaging follow-up. COMPARISON: 12/30/2014 FINDINGS: LOWER CHEST: The visualized lung bases are clear. LIVER: Normal in size and contour. No focal lesion. BILIARY SYSTEM: Status post cholecystectomy. SPLEEN: Normal size. No focal lesion. PANCREAS: No mass, ductal dilation, or yarelis-pancreatic fluid. ADRENALS: Normal; no mass. KIDNEYS: Normal size and contour. No hydronephrosis. URINARY BLADDER: Unremarkable. GASTROINTESTINAL TRACT: Sequelae of gastric bypass. Nonspecific mild fluid opacification within nondi stended small bowel, could relate to diarrheal state. No evidence of free air, significant intra-abdominal free fluid, bowel obstruction or abscess. APPENDIX: Normal appendix. LYMPH NODES: No lymphadenopathy. MUSCULOSKELETAL: No acute or suspicious osseous abnormality. ADDITIONAL FINDINGS: None. IMPRESSION: No acute or concerning abnormalities seen in the abdomen or pelvis. Findings as above.
[2024-08-23] MEDS ORDERED: ACETAMINOPHEN 500 MG TAB ONE (16:27)
[2024-08-23] MEDS ORDERED: ONDANSETRON 4 MG/2 ML VIAL ONE (16:42)
[2024-08-23 16:46] LABS: Specific Gravity 1.017 (1.005-1.030); Sqamous Epithelial <5 /HPF (None Seen); Urine Bacteria None Seen /HPF (<20); Urine Bilirubin NEGATIVE (Negative); Urine Blood Negative (Negative); Urine Clarity Turbid (Clear); Urine Color Yellow (Yellow); Urine Culture Reflex Order NOT NEEDED; Urine Glucose NEGATIVE (Negative); Urine Ketones TRACE (Negative); Urine Microscopic Reflex YN ORDER UMIC; Urine Nitrite NEGATIVE (Negative); Urine Protein NEGATIVE (Negative); Urine Urobilinogen 1+ (Normal); Urine WBC <5 /HPF (<5); Urine WBC Clump Rare /HPF (None Seen)
--- NOTE | 2024-08-23 17:43 | EDPHYS ---
Physician Documentation [facility] Name: Shira Goldsmith Age: 48 yrs Sex: Female : 1975 Arrival Date: 08/23/2024 Time: 11:46 Bed 15 Private MD: ED Physician Dom Dubon HPI: 08/23 13:30 This 48 yrs old Female presents to ER via Wheelchair with complaints of cp Nausea/Vomiting, General Weakness, throat surgery 08/14/24. 13:30 The patient presents to the emergency department with nausea, with "dry heaves", cp vomiting, that is continuous, described as bilious, diarrhea, that is intermittent. Onset: The symptoms/episode began/occurred yesterday. Possible causes: unknown. Associated signs and symptoms: Pertinent positives: abdominal pain, anorexia, Pertinent negatives: GI bleeding, chest pain. 13:30 Severity of symptoms: in the emergency department the symptoms are unchanged despite cp home interventions. Patient reports recent surgery to remove non-cancerous masses in oropharynx on 08-14-2024. 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 - Infectious Disease History:: Denies. - Social history:: Smoking status: Patient denies any tobacco usage or history of. ROS: 13:35 Constitutional: Positive for body aches, poor PO intake, cp 13:35 Eyes: Negative for injury, pain, redness, and discharge, cp 13:35 ENT: Positive for sore throat, Negative for drainage from ear(s), ear pain, difficulty swallowing, difficulty handling secretions, 13:35 Cardiovascular: Negative for chest pain, 13:35 Respiratory: Negative for cough, shortness of breath, wheezing, 13:35 Abdomen/GI: Positive for abdominal pain, nausea and vomiting, diarrhea, anorexia, Negative for constipation, hematemesis, 13:35 Neuro: Positive for headache, weakness, Negative for altered mental status, 13:35 All other systems are negative, Exam: 13:40 Constitutional: The patient appears in no acute distress, alert, awake, cp non-diaphoretic, non-toxic, well developed, well nourished, uncomfortable, 13:40 Head/Face: Normocephalic, atraumatic. cp 13:40 Eyes: Periorbital structures: appear normal, Conjunctiva: normal, no exudate, no injection, Sclera: no appreciated abnormality, Lids and lashes: appear normal, bilaterally, 13:40 ENT: External ear(s): are unremarkable, Nose: is normal, Mouth: Lips: moist, Oral mucosa: moist, Posterior pharynx: Airway: no evidence of obstruction, patent, swelling, is not appreciated, erythema, that is mild, exudate, is not appreciated, 13:40 Neck: ROM/movement: Meningeal signs: are not present, nuchal rigidity, is not appreciated, 13:40 Chest/axilla: Inspection: normal, 13:40 Cardiovascular: Rate: tachycardic, Rhythm: regular, Edema: is not appreciated, JVD: is not appreciated, 13:40 Respiratory: the patient does not display signs of respiratory distress, Respirations: normal, no use of accessory muscles, no retractions, labored breathing, is not present, Breath sounds: are clear throughout, no decreased breath sounds, no stridor, no wheezing, 13:40 Abdomen/GI: Inspection: abdomen appears normal, Bowel sounds: active, all quadrants, Palpation: soft, in all quadrants, moderate abdominal tenderness, in the epigastric area, right upper quadrant and left upper quadrant, rebound tenderness, is not appreciated, involuntary guarding, is not appreciated, 13:40 Back: CVA tenderness, is absent, 13:40 Neuro: Orientation: to person, place \\T\\ time. Mentation: is normal, Motor: moves all fours, strength is normal, 14:53 ECG was reviewed by the Attending Physician. cp Vital Signs: 12:27 BP 122 / 82; Pulse 115; Resp 20 S; Temp 99.7(O); Pulse Ox 98% on R/A; Weight 76.2 kg aa5 (R); Height 4 ft. 11 in. (R); 13:30 BP 111 / 53; Pulse 82; Resp 16; Pulse Ox 100% ; me1 14:00 BP 113 / 76; Pulse 82; Resp 15; Pulse Ox 99% ; me1 16:29 BP 98 / 63; Pulse 109; Resp 21; Pulse Ox 98% ; me1 16:31 Temp 101.3(O); me1 17:00 BP 100 / 62; Pulse 105; Resp 18; Pulse Ox 96% ; me1 18:00 BP 96 / 64; Pulse 102; Resp 19; Temp 98.2; Pulse Ox 96% ; me1 12:27 Body Mass Index 33.93 (76.20 kg, 149.86 cm) aa5 MDM: 12:39 Medical Screening Exam initiated cp 17:41 Data reviewed: vital signs, nurses notes, lab test result(s), EKG, radiologic studies, cp CT scan, plain films, and as a result, I will discharge patient. 17:41 Differential diagnosis: gastritis, pancreatitis, viral gastroenteritis, cp gastroenteritis, dehydration, electrolyte abnormality, cardiac arrythmia. I considered the following discharge prescriptions or medication management in the emergency department Medications were administered in the Emergency Department. See MAR. Independent interpretation of the following test(s) in the Emergency Department EKG: See my EKG interpretation above. Counseling: I had a detailed discussion with the patient and/or guardian regarding the historical points, exam findings, and any diagnostic results supporting the discharge/admit diagnosis, lab results, radiology results, to return to the emergency department if symptoms worsen or persist or if there are any questions or concerns that arise at home. Response to treatment: the patient's symptoms have markedly improved after treatment, and as a result, I will discharge patient. Special discussion: Based on the patient's Hx, exam, and Dx evaluation, there is no indication for emergent surgery or inpatient Tx. It is understood by the patient/guardian that if the Sx's persist or worsen they need to return immediately for re-evaluation. 08/23 13:25 Order name: Basic Metabolic Panel; Complete Time: 14:52 cp 08/23 14:52 Interpretation: Abnormal: NA 134. 08/23 13:25 Order name: CBC with Diff; Complete Time: 14:52 08/23 16:35 Interpretation: Normal except: LUIS MIGUEL% 84.0; LYM% 10.2. cp 08/23 13:25 Order name: LFT's; Complete Time: 14:52 08/23 16:36 Interpretation: Normal except: AST 88; ALT 120; ALK 135; GLOB 4.0; A/G 0.9. cp 04/ 13:25 Order name: Magnesium; Complete Time: 14:52 cp 08/23 13:25 Order name: PT-INR; Complete Time: 14:52 cp 08/23 13:25 Order name: Troponin HS; Complete Time: 14:52 cp 08/23 13:25 Order name: Lipase; Complete Time: 14:52 cp 08/23 13:25 Order name: Group A Streptococcus Rapid; Complete Time: 14:52 cp 08/23 13:25 Order name: [place] Screen Profile; Complete Time: 14:52 cp 08/23 13:25 Order name: COVID-19 Ag + Flu A+B Ag; Complete Time: 14:52 cp 08/23 14:36 Order name: Throat Culture EDMS 08/23 16:32 Order name: Urinalysis w/ reflexes; Complete Time: 17:13 cp 08/23 17:14 Interpretation: Reviewed. cp 08/23 13:25 Order name: XRAY Chest (1 view); Complete Time: 15:03 cp 08/23 15:10 Order name: CT Abd/Pelvis - IV Contrast Only; Complete Time: 16:30 cp 08/23 16:30 Interpretation: Report reviewed. cp 08/23 13:25 Order name: EKG; Complete Time: 13:25 cp 08/23 13:25 Order name: Cardiac monitoring; Complete Time: 15:04 cp 08/23 13:25 Order name: EKG - Nurse/Tech; Complete Time: 15:04 cp 08/23 13:25 Order name: IV Saline Lock; Complete Time: 14:03 cp 08/23 13:25 Order name: Labs collected and sent; Complete Time: 14:03 cp 08/23 13:25 Order name: O2 Per Protocol; Complete Time: 14:03 cp 08/23 13:25 Order name: O2 Sat Monitoring; Complete Time: 14:03 cp 08/23 16:31 Order name: PO challenge; Complete Time: 17:43 cp EC:53 Rate is 113 beats/min. Rhythm is regular. PA interval is normal. QRS interval is cp normal. QT interval is normal. Interpreted by me. Reviewed by me. Administered Medications: 14:16 Drug: metoCLOPramide IVP 10 mg IVP once; over 1 to 2 minutes Route: IVP; Site: left me1 hand; 15:04 Follow up: Response: No adverse reaction; Pain is decreased me1 15:04 Follow up: Response: No adverse reaction; Nausea is decreased me1 14:16 Drug: diphenhydrAMINE IVP 25 mg IVP once Route: IVP; Site: left hand; me1 15:04 Follow up: Response: No adverse reaction; Pain is decreased me1 14:16 Drug: Famotidine IVP 20 mg IVP once; dilute with 10 mL 0.9% NaCl; give over 2 minutes me1 Route: IVP; Site: left hand; 15:04 Follow up: Response: No adverse reaction me1 14:16 Drug: NS 0.9% IV 1000 ml IV at 1 bolus Per protocol; to be given as a bolus over 60 me1 minutes Route: IV; Rate: 1 bolus; Site: left hand; 15:17 Follow up: IV Status: Completed infusion; IV Intake: 1000ml me1 16:35 Drug: NS 0.9% IV 1000 ml IV at 1 bolus Per protocol; to be given as a bolus over 60 me1 minutes Route: IV; Rate: 1 bolus; Site: right forearm; 18:20 Follow up: Response: No adverse reaction; IV Status: Completed infusion; IV Intake: me1 1000ml 16:36 Drug: Acetaminophen PO 1000 mg PO once Route: PO; me1 17:43 Follow up: Response: No adverse reaction; Temperature is decreased me1 16:44 Drug: Ondansetron IVP 4 mg IVP once; over 2 minutes Route: IVP; Site: right forearm; me1 17:43 Follow up: Response: No adverse reaction; Nausea is decreased me1 17:43 Not Given (Patient Refused): GI Cocktail without - (maaloxsuspension 30 ml, me1 lidocaine mucous membrane liquid 2 % 15 ml) PO once Disposition: 08/24 10:54 Co-signature as Attending Physician, Dom Dubon MD I reviewed the patient's care rn provided by the Advanced Practice Provider and agree with the diagnosis and treatment plan. Disposition Summary: 08/23/24 17:42 Discharge Ordered Notes: Location: Home cp Problem: new cp Symptoms: have improved cp Condition: Stable cp Diagnosis - Nausea with vomiting, unspecified cp - Weakness cp - Fever presenting with conditions classified elsewhere cp - Diarrhea, unspecified cp Followup: cp - With: Private Physician - When: 2 - 3 days - Reason: Recheck today's complaints Discharge Instructions: - Discharge Summary Sheet cp - Food Choices to Help Relieve Diarrhea, Adult cp - Diarrhea, Adult cp - Fever, Adult cp - Nausea and Vomiting, Adult cp - Weakness cp Forms: - Medication Reconciliation Form cp - Antibiotic Education cp - Prescription Opioid Use cp - Patient Portal Instructions cp - Leadership Thank You Letter cp Prescriptions: - Pepcid 20 mg Oral Tablet - take 1 tablet ORAL route every 12 hours for 10 days; 20 tablet; Refills: 0, cp Product Selection Permitted - ondansetron 8 mg Oral Tablet,disintegrating - take 1 tablet ORAL route every 12 hours; 20 tablet; Refills: 0, Product cp Selection Permitted Signatures: Dispatcher [employer] EDMS Dom Dubon MD MD rn Calderon, Audri RN RN aa5 Carlos Garcia PA PA cp Julia Horton RN RN me1 Corrections: (The following items were deleted from the chart) 08/23 14:52 14:52 Normal except: NA 134. cp cp 15:11 15:11 Abdomen Pelvis W Con+CT.RAD.BRZ ordered. EDMS EDMS 08/24 17:27 08/23 13:30 Patient reports recent surgery to remove non-cancerous masses in oropharynx cp on 08-13-2024. cp
--- NOTE | 2024-08-23 17:43 | ER ---
Nurse's Notes [facility] Name: Shira Goldsmith Age: 48 yrs Sex: Female : 1975 Arrival Date: 08/23/2024 Time: 11:46 Bed 15 Private MD: Diagnosis: Nausea with vomiting, unspecified;Weakness;Fever presenting with conditions classified elsewhere;Diarrhea, unspecified Presentation: 08/23 12:27 Chief complaint: Patient states: nausea/vomiting/diarrhea that began yesterday, pt aa5 states "I had some spots removed from my throat on 08/14/24". Coronavirus screen: diarrhea, nausea, vomiting. Ebola Screen: Patient denies travel to an Ebola-affected area in the 21 days before illness onset. Initial Sepsis Screen: Does the patient meet any 2 criteria? HR > 90 bpm. Does the patient have a suspected source of infection? No. Patient's initial sepsis screen is negative. Risk Assessment: Do you want to hurt yourself or someone else? Patient reports no desire to harm self or others. Onset of symptoms was August 2024. 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 - Infectious Disease History:: Denies. - Social history:: Smoking status: Patient denies any tobacco usage or history of. Screenin:15 [facility] ED Fall Risk Assessment (Adult) History of falling in the last 3 months, me1 including since admission No falls in past 3 months (0 pts) Confusion or Disorientation No (0 pts) Intoxicated or Sedated No (0 pts) Impaired Gait No (0 pts) Mobility Assist Device Used No (0 pt) Altered Elimination No (0 pt) Score/Fall Risk Level 0 - 2 = Low Risk Maintained a safe environment, Provided non-skid footwear, Hourly rounding (assess needs \\T\\ fall precautionary measures) done. Abuse screen: Denies threats or abuse. Nutritional screening: No deficits noted. Tuberculosis screening: No symptoms or risk factors identified. Assessment: 13:15 General: Appears ill, well groomed, well developed, well nourished, Behavior is calm, me1 cooperative, appropriate for age, Reports nausea/vomiting/diarrhea that began yesterday, pt states "I had some spots removed from my throat on 08/14/24". Pain: Complains of pain in abdomen and throat Pain does not radiate. Pain currently is 8 out of 10 on a pain scale. Quality of pain is described as crampy, Pain began suddenly, Is continuous. Neuro: Level of Consciousness is awake, alert, obeys commands, Oriented to person, place, time, situation, Appropriate for age. Cardiovascular: Patient's skin is warm and dry. Respiratory: Airway is patent Respiratory effort is even, unlabored, Respiratory pattern is regular, symmetrical. GI: Abdomen is round Bowel sounds present X 4 quads. Reports lower abdominal pain, upper abdominal pain, cramping, diarrhea, nausea, vomiting, since yesterday. : No signs and/or symptoms were reported regarding the genitourinary system. EENT: No signs and/or symptoms were reported regarding the EENT system. Derm: Skin is intact, is healthy with good turgor, Skin is pink, warm \\T\\ dry. Musculoskeletal: No signs and/or symptoms reported regarding the musculoskeletal system. 17:46 General: Discharge delayed to finish iv fluid. me1 Vital Signs: 12:27 BP 122 / 82; Pulse 115; Resp 20 S; Temp 99.7(O); Pulse Ox 98% on R/A; Weight 76.2 kg aa5 (R); Height 4 ft. 11 in. (R); 13:30 BP 111 / 53; Pulse 82; Resp 16; Pulse Ox 100% ; me1 14:00 BP 113 / 76; Pulse 82; Resp 15; Pulse Ox 99% ; me1 16:29 BP 98 / 63; Pulse 109; Resp 21; Pulse Ox 98% ; me1 16:31 Temp 101.3(O); me1 17:00 BP 100 / 62; Pulse 105; Resp 18; Pulse Ox 96% ; me1 18:00 BP 96 / 64; Pulse 102; Resp 19; Temp 98.2; Pulse Ox 96% ; me1 12:27 Body Mass Index 33.93 (76.20 kg, 149.86 cm) aa5 ED Course: 11:48 Patient arrived in ED. im 12:01 Carlos Garcia PA is PHCP. cp 12:01 Dom Dubon MD is Attending Physician. cp 12:27 Arm band placed on. aa5 12:29 Triage completed. aa5 13:12 Julia Horton, RN is Primary Nurse. me1 13:15 Patient has correct armband on for positive identification. Bed in low position. Call me1 light in reach. Side rails up X 1. Provided Education on: POC. Verbalized understanding.. Client placed on continuous cardiac and pulse oximetry monitoring. NIBP monitoring applied. interrelated special education teacher on. Pulse ox on. NIBP on. 13:15 No provider procedures requiring assistance completed. me1 13:42 XRAY Chest (1 view) In Process Unspecified. EDMS 14:03 [place] Screen Profile Sent. me1 14:03 Group A Streptococcus Rapid Sent. me1 14:03 Lipase Sent. me1 14:04 Basic Metabolic Panel Sent. me1 14:04 CBC with Diff Sent. me1 14:04 LFT's Sent. me1 14:04 Magnesium Sent. me1 14:04 PT-INR Sent. me1 14:04 Troponin HS Sent. me1 14:04 Initial lab(s) drawn, by sc, sent to lab. COVID swab sent to lab. Flu and/or RSV swab me1 sent to lab. Strep swab sent to lab. Inserted saline lock: 24 gauge in left hand, using aseptic technique. 15:04 EKG done, by ED staff, reviewed by Carlos YEN. me1 15:30 Accessed peripheral vein via ultrasound, utilizing dynamic ultrasound technique Clean \\T\\ cm10 dry. Dressing intact. Good blood return. Flushes easily. 20g right forearm. Missed attempt(s): 22 gauge in right forearm. Bleeding controlled, band aid applied, catheter tip intact. 15:39 CT Abd/Pelvis - IV Contrast Only In Process Unspecified. EDMS 16:38 Urinalysis w/ reflexes Sent. me1 16:38 Urine collected: clean catch specimen, tea colored. me1 18:21 IV discontinued, intact, bleeding controlled, No redness/swelling at site. Pressure me1 dressing applied, x2. Administered Medications: 14:16 Drug: metoCLOPramide IVP 10 mg IVP once; over 1 to 2 minutes Route: IVP; Site: left me1 hand; 15:04 Follow up: Response: No adverse reaction; Pain is decreased me1 15:04 Follow up: Response: No adverse reaction; Nausea is decreased me1 14:16 Drug: diphenhydrAMINE IVP 25 mg IVP once Route: IVP; Site: left hand; me1 15:04 Follow up: Response: No adverse reaction; Pain is decreased me1 14:16 Drug: Famotidine IVP 20 mg IVP once; dilute with 10 mL 0.9% NaCl; give over 2 minutes me1 Route: IVP; Site: left hand; 15:04 Follow up: Response: No adverse reaction me1 14:16 Drug: NS 0.9% IV 1000 ml IV at 1 bolus Per protocol; to be given as a bolus over 60 me1 minutes Route: IV; Rate: 1 bolus; Site: left hand; 15:17 Follow up: IV Status: Completed infusion; IV Intake: 1000ml me1 16:35 Drug: NS 0.9% IV 1000 ml IV at 1 bolus Per protocol; to be given as a bolus over 60 me1 minutes Route: IV; Rate: 1 bolus; Site: right forearm; 18:20 Follow up: Response: No adverse reaction; IV Status: Completed infusion; IV Intake: me1 1000ml 16:36 Drug: Acetaminophen PO 1000 mg PO once Route: PO; me1 17:43 Follow up: Response: No adverse reaction; Temperature is decreased me1 16:44 Drug: Ondansetron IVP 4 mg IVP once; over 2 minutes Route: IVP; Site: right forearm; me1 17:43 Follow up: Response: No adverse reaction; Nausea is decreased me1 17:43 Not Given (Patient Refused): GI Cocktail without - (maaloxsuspension 30 ml, me1 lidocaine mucous membrane liquid 2 % 15 ml) PO once Medication: 13:15 VIS not applicable for this client. me1 Intake: 15:17 IV: 1000ml; Total: 1000ml. me1 18:20 IV: 1000ml; Total: 2000ml. me1 Outcome: 17:42 Discharge ordered by . cp 18:21 Discharged to home ambulatory, with family, me1 18:21 Condition: stable 18:21 Discharge instructions given to patient, family, Instructed on discharge instructions, follow up and referral plans. medication usage, Demonstrated understanding of instructions, follow-up care, medications, Prescriptions given X 2, 18:22 Patient left the ED. me1 Signatures: Dispatcher [employer] EDRosa Elena Kaufman, RN RN aa5 Carlos Garcia PA PA cp Mendoza, Itzel im Martinez, Clarissa, RN RN cm10 Julia Horton RN RN me1 Corrections: (The following items were deleted from the chart) 14:54 12:27 Chief complaint: Patient states: nausea/vomiting/diarrhea that began yesterday, me1 pt states "I had some spots removed from my throat on 08/14/24" aa5 15:05 12:27 Chief complaint: Patient states: nausea/vomiting/diarrhea that began yesterday, me1 pt states "I had some spots removed from my throat on 08/14/24" sc1 15:18 15:17 IV discontinued, intact, bleeding controlled, No redness/swelling at site. me1 Pressure dressing applied, sc1 15:18 15:17 Discharged to home ambulatory, with significant other, sc1 [facility] 15:18 15:17 Condition: stable sc1 sc1 15:18 15:17 Discharge instructions given to patient, significant other, Instructed on me1 discharge instructions, follow up and referral plans. medication usage, Demonstrated understanding of instructions, follow-up care, medications, Prescriptions given X 1, me1
[2024-08-23 19:03] VITALS: O2SAT 96
[2024-08-23 19:05] VITALS: BP 96/64; TEMP 98.2
--- NOTE | 2024-08-24 10:48 | EKG ---
Test Date: 2024-08-23 Test Time: 14:46:06 Dog Pound Attendant: FAB MEASUREMENT RESULTS: Intervals: Rate: 113 MN: 152 QRSD: 80 QT: 336 QTc: 460 [place]: P: 33 MN: 152 QRS: 40 T: 36 INTERPRETIVE STATEMENTS: Sinus tachycardia Nonspecific ST and T wave abnormality Abnormal ECG Compared to ECG 08/10/2024 16:08:34 ST (T wave) deviation now present Sinus rhythm no longer present Electronically Signed On 08-24-24 10:47:23 CDT by Tu Guzman
== END 2024-08-23 18:22 | disposition home or self-care (01) ==
LOC: ER 11:46
DX: R11.2 Nausea with vomiting, unspecified (principal); R53.1 Weakness; R50.9 Fever, unspecified; R19.7 Diarrhea, unspecified; Z98.890 Other specified postprocedural states; Z11.52 Encounter for screening for COVID-19
CPT/HCPCS: 93005; 87070; 85025; 81001; 80048; 36415; 83735; 86308; 85610; 80076; 84484; 83690; 74177; 71045; 99285; 87428; Q9967; J2765; J1200; J2405; J7030 ×2